=== PATIENT | female | born 1975 | race Caucasian/White ===

== ENCOUNTER → 2016-07-30 | Outpatient (CLI) | payer OTHER ==
--- NOTE | 2016-07-30 15:16 | CR ---
EXAMINATION: Bilateral feet HISTORY: Pain COMPARISON: None TECHNIQUE: 2 views bilaterally FINDINGS: There is no acute osseous abnormality, dislocation, or fracture. Bone mineralization and j oint spaces appear normal. Mild subchondral cystic change noted at the first MTP joint of the left f oot. No significant soft tissue swelling. IMPRESSION: Mild degenerative changes without acute findings.
== END ==
LOC: MW.CHPOD 09:13
PROVIDERS: ATTEND Podiatrist Foot & Ankle Surgery
DX: M79.671 Pain in right foot (principal); G89.29 Other chronic pain
CPT/HCPCS: 736202650; 73620-50

== ENCOUNTER 2016-09-08 08:46 | Emergency (ER) | payer OTHER ==
--- NOTE | 2016-09-08 09:00 | EDM.PDOC ---
ED HPI GENERAL MEDICAL PROBLEM - General Chief Complaint: Neck Problem Stated Complaint: NECK PAIN Time Seen by Provider: 09/08/16 09:00 Source of Information: Reports: Patient - History of Present Illness INITIAL COMMENTS - FREE TEXT/NARRATIVE: HISTORY AND PHYSICAL: History of present illness: [] Patient presents with neck pain/trapezius distribution pain bilateral since Friday she rates 8/10 nonradiating denies any trauma or precipitating event She relates to stress of her daughter graduating high school, she is had multiple chiropractic adjustments over the last week she has been using ibuprofen intermittently along with her chronic medications without benefit No fever nausea vomiting diarrhea constipation chest pain shortness breath headache dizziness or palpitation no bowel or urine symptoms no radiculopathy Review of systems: As per history of present illness and below otherwise all systems reviewed and negative. Past medical history: As per history of present illness and as reviewed below otherwise noncontributory. Surgical history: As per history of present illness and as reviewed below otherwise noncontributory. Social history: No reported history of drug or alcohol abuse. Family history: As per history of present illness and as reviewed below otherwise noncontributory. Physical exam: HEENT: Atraumatic, normocephalic, pupils reactive, negative for conjunctival pallor or scleral icterus, mucous membranes moist, throat clear, neck supple, nontender, trachea midline. Lungs: Clear to auscultation, breath sounds equal bilaterally, chest nontender. Heart: S1S2, regular, negative for clicks, rubs, or JVD. Abdomen: Soft, nondistended, nontender. Negative for masses or hepatosplenomegaly. Negative for costovertebral tenderness. Pelvis: Stable nontender. Genitourinary: Deferred. Rectal: Deferred. Extremities: Atraumatic, negative for cords or calf pain. Neurovascular unremarkable. Neuro: Awake, alert, oriented. Cranial nerves II through XII unremarkable. Cerebellum unremarkable. Motor and sensory unremarkable throughout. Exam nonfocal. Diagnostics: [] Cervical spine 3 views Therapeutics: [] Flexeril 10 mg by mouth 3 times a day when necessary #30 no refill Impression: [] Paraspinous muscle spasm cervical Definitive disposition and diagnosis as appropriate pending reevaluation and review of above. Neck Pain Score (Numeric/FACES): 10 - Related Data Allergies Allergy/AdvReac Type Severity Reaction Status Date / Time codeine Allergy Itching Verified 09/08/16 08:53 fluoxetine Allergy Confusion Verified 09/08/16 08:53 meperidine HCl [From Demerol] Allergy Swelling Verified 09/08/16 08:53 Flu Mist Allergy Swelling Uncoded 01/19/15 15:48 Home Meds: Home Meds ALPRAZolam [ALPRAZolam ER] 0.5 mg PO DAILY PRN 09/29/13 [History] Clobetasol [Clobetasol Propionate 0.05%] 15 gm TOP DAILY PRN 09/29/13 [History] ClonazePAM [KlonoPIN] 0.5 tab PO BEDTIME 09/29/13 [History] Hydrocodone/Acetaminophen [[place] 5-325] 1 tab PO DAILY PRN 09/29/13 [History] Levothyroxine 100 mcg PO ACBRK 09/29/13 [History] Insulin Aspart [NovoLOG] 20 - 25 unit IMPLANT ASDIRECTED 01/19/15 [History] Pramipexole [Mirapex] 1 tab PO BEDTIME 01/19/15 [History] DULoxetine [Cymbalta] 60 mg PO DAILY 09/08/16 [History] Lisinopril/Hydrochlorothiazide [Lisinopril-Hctz 20-12.5 mg Tab] 1 tab PO DAILY 09/08/16 [History] Past Medical History Cardiovascular History: Reports: Hypertension Other Respiratory History: Former smoker QUIT '2009 [employer] History: Reports: Psychiatric History: Reports: Anxiety, Depression Endocrine/Metabolic History: Reports: Diabetes, Type I, Hypothyroidism Other Endocrine/Metabolic History: Hypothyroidism - Infectious Disease History Infectious Disease History: Reports: Chicken Pox - Past Surgical History Other HEENT Surgeries/Procedures: [place] teeth extracted GI Surgical History: Reports: Colonoscopy Female Surgical History: Reports: Hysterectomy Other Female Surgeries/Procedures: Laparoscopy, Hysteroscopy, Essure Procedure Social & Family History - Family History Family Medical History: Noncontributory - Tobacco Use Smoking Status *Q: Never Smoker Years of Tobacco use: 15 Used Tobacco, but Quit: Yes - Caffeine Use Caffeine Use: Reports: None - Alcohol Use Days Per Week of Alcohol Use: 0 - Recreational Drug Use Recreational Drug Use: No Drug Use in Last 12 Months: No ED ROS GENERAL - Review of Systems Review Of Systems: ROS reveals no pertinent complaints other than HPI. ED EXAM, GENERAL - Physical Exam Exam: See Below Course - Vital Signs Last Recorded V/S: Last Vital Signs Temp 36.3 C 09/08/16 08:49 Pulse 104 H 09/08/16 08:49 Resp 18 09/08/16 08:49 BP 127/79 09/08/16 08:49 Pulse Ox 95 09/08/16 08:49 - Orders/Labs/Meds Orders: Active Orders 24 hr Category Date Time Status Cervical Spine 2V or 3V [CR] Stat Exams 09/08/16 09:08 Taken Departure - Departure Time of Disposition: 09:45 Disposition: Home, Self-Care 01 Condition: good Clinical Impression: Cervical paraspinous muscle spasm - Discharge Information Forms: ED Department Discharge - My Orders Last 24 Hours: My Active Orders 09/08/16 09:08 Cervical Spine 2V or 3V [CR] Stat - Assessment/Plan Last 24 Hours: My Active Orders 09/08/16 09:08 Cervical Spine 2V or 3V [CR] Stat
[2016-09-08 18:38] VITALS: BP 103/67
--- NOTE | 2016-09-09 15:17 | CR ---
EXAM DATE: 09/08/16 PATIENT'S AGE: 41 Patient: RGACIELA JOHNSON Facility: [place], [place] Site . Site : 1975 Study: XRay Spine Cervical [id number] 9:38:58 AM Ordering Physician: Isabel Mercado Final Report: INDICATION: Neck pain; no recent trauma. Comparison: None. Technique: Four view study cervical spine. Findings: No evidence of fracture or dislocation. No bone or soft tissue abnormalities. C1 -C2 articulation is unremarkable. Impression: Negative radiographic examination of the cervical spine. Dictated by Manuel Terry MD @ Sep 08 2016 9:41AM (Electronic Signature) Report Signed by Proxy. BRANDON
== END 2016-09-08 10:05 | disposition home or self-care (01) ==
LOC: MW.ED 08:46
DX: M62.838 Other muscle spasm (principal); I10 Essential (primary) hypertension; F41.9 Anxiety disorder, unspecified; F32.9 Major depressive disorder, single episode, unspecified; E10.9 Type 1 diabetes mellitus without complications; E03.9 Hypothyroidism, unspecified; Z88.1 Allergy status to other antibiotic agents; Z88.8 Allergy status to other drugs, medicaments and biological substances; Z79.899 Other long term (current) drug therapy; Z90.710 Acquired absence of both cervix and uterus; Z88.5 Allergy status to narcotic agent; Z87.891 Personal history of nicotine dependence
CPT/HCPCS: 72040; 72040-26; 99283

== ENCOUNTER → 2016-09-10 | Outpatient (CLI) | payer OTHER ==
[2016-09-10 16:02] LABS: CHLORIDE,CL 99 mmol/L (98-110); SODIUM,NA 133 mmol/L (136-146)
== END ==
LOC: MW.CHFP 15:05
PROVIDERS: ATTEND Emergency Medicine
DX: E10.9 Type 1 diabetes mellitus without complications (principal); E03.9 Hypothyroidism, unspecified
CPT/HCPCS: 36415; 80048; 83036; 84443

== ENCOUNTER 2018-05-26 12:43 | Day surgery (SDC) | payer OTHER ==
[~2018-05-26 12:43] MED LIST: Lactated Ringers 1,000 ML IV SCH; Sodium Chloride 0.9% 10 ML Syringe FLUSH PRN; Sodium Chloride 0.9% 2.5 ML Syringe FLUSH PRN
--- NOTE | 2018-05-26 13:38 | PCM.PREANE ---
Preanesthetic Assessment - Anesthesia/Transfusion/Family Hx Anesthesia History: Prior Anesthesia Without Reaction Other Type of Anesthesia Reaction Comment: Denies any known problem in past, no known family hx: problems Family History of Anesthesia Reaction: No Transfusion History: No Prior Transfusion(s) Intubation History: Unknown - Review of Systems General: No Symptoms Pulmonary: No Symptoms Cardiovascular: No Symptoms Gastrointestinal: Abdominal Pain Neurological: No Symptoms Other: Reports: None - Physical Assessment NPO Status Date: 05/26/18 NPO Status Time: 10:00 O2 Sat by Pulse Oximetry: 96 Respiratory Rate: 18 Vital Signs: Last Vital Signs Temp 36.4 C 05/26/18 12:49 Pulse 71 05/26/18 12:49 Resp 18 05/26/18 12:49 BP 140/85 05/26/18 12:49 Pulse Ox 96 05/26/18 12:49 Height: 1.63 m Weight: 72.575 kg ASA Class: 3 Mental Status: Alert & Oriented x3 Airway Class: Mallampati = 2 Dentition: Reports: Normal Dentition Thyro-Mental Finger Breadths: 3 Mouth Opening Finger Breadths: 3 ROM/Head Extension: Full Lungs: Clear to Auscultation, Normal Respiratory Effort Cardiovascular: Regular Rate, Regular Rhythm - Allergies Allergies/Adverse Reactions: Allergies Allergy/AdvReac Type Severity Reaction Status Date / Time codeine Allergy Itching Verified 05/21/18 09:46 fluoxetine Allergy Confusion Verified 05/21/18 09:46 meperidine HCl [From Demerol] Allergy Hives/reddn Verified 05/21/18 10:17 ess/swellin g Flu Mist Allergy Swelling Uncoded 05/21/18 09:46 - Blood Blood Available: No - Anesthesia Plan Pre-Op Medication Ordered: None - Acknowledgements Anesthesia Type Planned: MAC Pt an Appropriate Candidate for the Planned Anesthesia: Yes Alternatives and Risks of Anesthesia Discussed w Pt/Guardian: Yes Pt/Guardian Understands and Agrees with Anesthesia Plan: Yes PreAnesthesia Questionnaire HEENT History: Reports: Other (See Below) Other HEENT History: wears glasses Cardiovascular History: Reports: Hypertension Respiratory History: Reports: None Gastrointestinal History: Reports: Chronic Constipation, Colon Polyp, GERD, Hemorrhoids, Helicobacter Pylori, Irritable Bowel Syndrome, Other (See Below) ( chronic gastritis) Genitourinary History: Reports: None [employer] History: Reports: Musculoskeletal History: Reports: Arthritis, Back Pain, Chronic, Fibromyalgia Neurological History: Reports: Headaches, Chronic, Other (See Below) Other Neuro History: hx of motion sickness, has Restless Leg Syndrome Psychiatric History: Reports: Anxiety, Depression Endocrine/Metabolic History: Reports: Diabetes, Type I, Hypothyroidism Other Endocrine/Metabolic History: has insulin pump Hematologic History: Reports: None Immunologic History: Reports: None Oncologic (Cancer) History: Reports: None Dermatologic History: Reports: Psoriasis - Infectious Disease History Infectious Disease History: Reports: Chicken Pox - Past Surgical History Head Surgeries/Procedures: Reports: None HEENT Surgical History: Reports: Adenoidectomy, Oral Surgery, Tonsillectomy Other HEENT Surgeries/Procedures: [place] teeth extracted GI Surgical History: Reports: Colonoscopy, EGD Female Surgical History: Reports: Section, Hysterectomy, Tubal Ligation Other Female Surgeries/Procedures: Laparoscopy, Hysteroscopy, Essure Procedure Neurological Surgical History: Reports: C-Spine Other Neurological Surgeries/Procedures: cervical fusion - SUBSTANCE USE Smoking Status *Q: Former Smoker Recreational Drug Use History: No - HOME MEDS Home Medications: Home Meds ALPRAZolam [ALPRAZolam ER] 0.5 - 1 mg PO DAILY PRN 09/29/13 [History] Clobetasol [Clobetasol Propionate 0.05%] 15 gm TOP BID PRN 09/29/13 [History] Levothyroxine 100 mcg PO ASDIRECTED 09/29/13 [History] Insulin Aspart [NovoLOG] 40 unit IMPLANT DAILY 01/19/15 [History] Pramipexole [Mirapex] 1 tab PO BEDTIME 01/19/15 [History] Lisinopril 20 mg PO DAILY 03/10/18 [History] ClonazePAM [KlonoPIN] 0.5 - 1 tab PO BEDTIME PRN 05/21/18 [History] Furosemide [Lasix] 20 mg PO DAILY 05/21/18 [History] Hydrocodone/Acetaminophen [Hydrocodon-Acetaminophen 5-325] 1 tab PO ASDIRECTED PRN 05/21/18 [History] Omeprazole Magnesium [Prilosec Otc] 20 mg PO DAILY 05/21/18 [History] - CURRENT (IN HOUSE) MEDS Current Meds: Current Medications Lactated Ringer's (Ringers, Lactated) 1,000 mls @ 125 mls/hr IV ASDIRECTED LESLIE Sodium Chloride (Saline Flush) 10 ml FLUSH ASDIRECTED PRN PRN Reason: Keep Vein Open Sodium Chloride (Saline Flush) 2.5 ml FLUSH ASDIRECTED PRN PRN Reason: Keep Vein Open
[2018-05-26] MEDS ORDERED: fentaNYL 100 MCG/2 ML SDV ONE (14:25)
[2018-05-26] MEDS ORDERED: Lidocaine 2% 5 ML SDV ONE (14:25)
[2018-05-26] MEDS ORDERED: Propofol 200 MG/20 ML SDV ONE (14:25)
--- NOTE | 2018-05-26 15:15 | PCM.OPNOTE ---
- General Post-Op/Procedure Note Date of Surgery/Procedure: 05/26/18 Operative Procedure(s): EGD with biopsy Findings: Normal EGD Pre Op Diagnosis: History of H pylori infection and chronic gastritis Post-Op Diagnosis: Normal appearing EGD Anesthesia Technique: CORTES Primary Surgeon: Jenny Mayo Condition: Good
[2018-05-26 15:42] VITALS: BP 122/84
--- NOTE | 2018-05-26 18:38 | OR ---
SURGEON: JOSY MEJIA MD DATE OF PROCEDURE: 05/26/2018 PREOPERATIVE DIAGNOSES: 1. Gastritis. 2. History of Helicobacter pylori infection. POSTOPERATIVE DIAGNOSIS: Normal esophagogastroduodenoscopy. PROCEDURE PERFORMED: Diagnostic EGD with biopsy. ANESTHESIA: MAC. INSTRUMENT USED: Olympus endoscope. EXTENT OF EXAM: To the second portion of duodenum. PREPARATION: Good. LIMITATIONS: None. INDICATION FOR EXAMINATION: The patient is a 43-year-old female who presents for followup EGD. Her previous EGD showed chronic gastritis with a foci of focal intestinal metaplasia as well as an H. pylori infection. She has completed treatment and is feeling better. A decision was made to proceed with a repeat endoscopy to ensure eradication of the H. pylori infection and determine whether her gastritis had improved. I explained the procedure, expected perioperative course, and risks including bleeding, infection, damage to surrounding structures including perforation. The patient verbalized understanding and wishes to proceed. PROCEDURE IN DETAIL: The patient was brought to the endoscopy suite and placed in a beach chair position. A time-out was completed verifying the patient's name, age, date of , allergies, and procedure to be performed. A bite block was placed in the patient's mouth. Monitored anesthesia care was induced and continuous oxygen was provided via nasal cannula throughout the procedure. After adequate sedation was achieved, a well-lubricated endoscope was placed in the patient's mouth and advanced under direct visualization to the second portion of duodenum. This appeared normal and a photograph was taken. The scope was then fully withdrawn while examining the color, texture, anatomy, and integrity of the mucosa of the upper GI tract. The duodenum appeared normal. The scope was brought in the stomach and a photograph taken of the GE junction as well as the pylorus. Both appeared anatomically normal. The gastric mucosa itself was free of lesions. There was no evidence of gross inflammation. Biopsies were taken of the gastric antrum, body, and of the fundus. The area of focal intestinal metaplasia was found in the fundus, so 3 biopsies were taken circumferentially in the fundus and placed in the same jar. The scope was then brought into the distal esophagus and a photograph taken of the Z-line. This appeared normal. There was no evidence of gross inflammation or ulceration of the distal esophageal mucosa. The remainder of the esophagus was free of pathology. The scope was removed and the procedure terminated. The patient tolerated procedure well and was taken to the PACU in stable condition. ENDOSCOPIC DIAGNOSIS: Grossly normal esophagogastroduodenoscopy. RECOMMENDATIONS: Follow up in clinic in 2 weeks. SHILOH JACKSON /[id number]
== END 2018-05-26 15:50 | disposition home or self-care (01) ==
LOC: MW.SDS 12:43
PROVIDERS: ATTEND Surgery
DX: K29.50 Unspecified chronic gastritis without bleeding (principal); B96.81 Helicobacter pylori [H. pylori] as the cause of diseases classified elsewhere; E10.9 Type 1 diabetes mellitus without complications; I10 Essential (primary) hypertension; K58.9 Irritable bowel syndrome, unspecified; E03.9 Hypothyroidism, unspecified; F41.9 Anxiety disorder, unspecified; Z87.891 Personal history of nicotine dependence; Z79.4 Long term (current) use of insulin; Z79.899 Other long term (current) drug therapy; Z79.890 Hormone replacement therapy; Z88.5 Allergy status to narcotic agent
CPT/HCPCS: 43239; J2001; J2704; J3010; J7120; 00731; 88305; 88312

== ENCOUNTER 2019-01-13 08:43 | Day surgery (SDC) | payer OTHER ==
[~2019-01-13 08:43] MED LIST changes: +Sodium Chloride 0.9% 10 ML SDV IV PRN
--- NOTE | 2019-01-13 09:09 | PCM.PREANE ---
Preanesthetic Assessment - Anesthesia/Transfusion/Family Hx Anesthesia History: Prior Anesthesia Without Reaction Other Type of Anesthesia Reaction Comment: Denies any known problem in past, no known family hx: problems Family History of Anesthesia Reaction: No Transfusion History: No Prior Transfusion(s) Intubation History: Unknown - Review of Systems General: No Symptoms Pulmonary: No Symptoms Cardiovascular: No Symptoms Gastrointestinal: Other (heartburns,bloating, change in bowel habits) Neurological: No Symptoms Other: Reports: None - Physical Assessment Height: 5 ft 4 in Weight: 73.028 kg ASA Class: 3 Mental Status: Alert & Oriented x3 Airway Class: Mallampati = 2 Dentition: Reports: Normal Dentition Thyro-Mental Finger Breadths: 3 Mouth Opening Finger Breadths: 3 ROM/Head Extension: Full Lungs: Clear to Auscultation, Normal Respiratory Effort Cardiovascular: Regular Rate, Regular Rhythm - Allergies Allergies/Adverse Reactions: Allergies Allergy/AdvReac Type Severity Reaction Status Date / Time codeine Allergy Itching Verified 12/31/18 12:19 fluoxetine Allergy Confusion Verified 12/31/18 12:19 meperidine HCl [From Demerol] Allergy Hives/reddn Verified 12/31/18 12:19 ess/swellin g Flu Mist Allergy Swelling Uncoded 12/31/18 12:19 - Blood Blood Available: No - Anesthesia Plan Pre-Op Medication Ordered: None - Acknowledgements Anesthesia Type Planned: MAC Pt an Appropriate Candidate for the Planned Anesthesia: Yes Alternatives and Risks of Anesthesia Discussed w Pt/Guardian: Yes Pt/Guardian Understands and Agrees with Anesthesia Plan: Yes PreAnesthesia Questionnaire HEENT History: Reports: Other (See Below) Other HEENT History: wears glasses Cardiovascular History: Reports: Hypertension Respiratory History: Reports: None Other Respiratory History: Former smoker QUIT '2009 Gastrointestinal History: Reports: Chronic Constipation, Colon Polyp, GERD, Hemorrhoids, Helicobacter Pylori, Irritable Bowel Syndrome, Other (See Below) Other Gastrointestinal History: hx of C-Diff earlier this year Genitourinary History: Reports: None [employer] History: Reports: Musculoskeletal History: Reports: Arthritis, Back Pain, Chronic, Fibromyalgia, Neck Pain, Chronic Neurological History: Reports: Concussion, Headaches, Chronic, Migraines, Other (See Below) Other Neuro History: hx of motion sickness, has Restless Leg Syndrome Psychiatric History: Reports: Anxiety, Depression Endocrine/Metabolic History: Reports: Diabetes, Type I, Hypothyroidism, IDDM Other Endocrine/Metabolic History: Hypothyroidism Hematologic History: Reports: None Immunologic History: Reports: None Oncologic (Cancer) History: Reports: None Dermatologic History: Reports: Psoriasis - Infectious Disease History Infectious Disease History: Reports: Chicken Pox - Past Surgical History Head Surgeries/Procedures: Reports: None HEENT Surgical History: Reports: Adenoidectomy, Tonsillectomy Other HEENT Surgeries/Procedures: [place] teeth extracted GI Surgical History: Reports: Colonoscopy, EGD Female Surgical History: Reports: Section, Hysterectomy, Tubal Ligation Other Female Surgeries/Procedures: Laparoscopy, Hysteroscopy, Essure Procedure Neurological Surgical History: Reports: C-Spine, Spinal Fusion Other Neurological Surgeries/Procedures: cervical fusion, C5-6 - SUBSTANCE USE Smoking Status *Q: Former Smoker Tobacco Use Within Last Twelve Months: No Recreational Drug Use History: No - HOME MEDS Home Medications: Home Meds ALPRAZolam [ALPRAZolam ER] 0.5 - 1 mg PO DAILY PRN 09/29/13 [History] Clobetasol [Clobetasol Propionate 0.05%] 15 gm TOP BID PRN 09/29/13 [History] Levothyroxine 100 mcg PO QAM 09/29/13 [History] Insulin Aspart [NovoLOG] 40 unit IMPLANT DAILY 01/19/15 [History] Lisinopril 20 mg PO BEDTIME 03/10/18 [History] ClonazePAM [KlonoPIN] 0.5 - 1 tab PO BEDTIME PRN 05/21/18 [History] Hydrocodone/Acetaminophen [Hydrocodon-Acetaminophen 5-325] 1 tab PO ASDIRECTED PRN 05/21/18 [History] amLODIPine [Norvasc] 10 mg PO DAILY 12/31/18 [History] - CURRENT (IN HOUSE) MEDS Current Meds: Current Medications Lactated Ringer's (Ringers, Lactated) 1,000 mls @ 125 mls/hr IV ASDIRECTED LESLIE Sodium Chloride (Saline Flush) 10 ml FLUSH ASDIRECTED PRN PRN Reason: Keep Vein Open Sodium Chloride (Saline Flush) 2.5 ml FLUSH ASDIRECTED PRN PRN Reason: Keep Vein Open Sodium Chloride (Saline Flush) 10 ml FLUSH ASDIRECTED PRN PRN Reason: Keep Vein Open Sodium Chloride (Saline Flush) 2.5 ml FLUSH ASDIRECTED PRN PRN Reason: Keep Vein Open Sodium Chloride (Normal Saline) 10 ml IV ASDIRECTED PRN PRN Reason: IV Use
[2019-01-13] MEDS ORDERED: Propofol 200 MG/20 ML SDV ONE (09:34)
[2019-01-13] MEDS ORDERED: Lidocaine 2% 5 ML SDV ONE (09:34)
--- NOTE | 2019-01-13 10:29 | PCM.POSTAN ---
POST ANESTHESIA ASSESSMENT - MENTAL STATUS Mental Status: Alert, Oriented - VITAL SIGNS Vital Signs: Last Vital Signs Temp 36.5 C 01/13/19 08:50 Pulse 77 01/13/19 10:25 Resp 15 01/13/19 10:25 BP 121/87 01/13/19 10:25 Pulse Ox 98 01/13/19 10:25 - RESPIRATORY Respiratory Status: Respiratory Rate WNL, Airway Patent, O2 Saturation Stable - CARDIOVASCULAR CV Status: Pulse Rate WNL, Blood Pressure Stable - GASTROINTESTINAL GI Status: No Symptoms - PAIN Pain Score: 0 - POST OP HYDRATION Hydration Status: Adequate & Stable - OBSERVATIONS Free Text/Narrative:: no anesthesia problems
--- NOTE | 2019-01-13 10:58 | PCM48HPAN ---
Post Anesthesia Note - EVALUATION WITHIN 48HRS OF ANESTHETIC Vital Signs in Normal Range: Yes Patient Participated in Evaluation: Yes Respiratory Function Stable: Yes Airway Patent: Yes Cardiovascular Function Stable: Yes Hydration Status Stable: Yes Pain Control Satisfactory: Yes Nausea and Vomiting Control Satisfactory: Yes Mental Status Recovered: Yes Vital Signs: Last Vital Signs Temp 36.5 C 01/13/19 08:50 Pulse 77 01/13/19 10:25 Resp 15 01/13/19 10:25 BP 121/87 01/13/19 10:25 Pulse Ox 98 01/13/19 10:25 - COMMENTS/OBSERVATIONS Free Text/Narrative:: no anesthesia problems
[2019-01-13 11:49] VITALS: BP 142/90; PULSE 64
--- NOTE | 2019-01-13 15:02 | PCM.OPNOTE ---
- General Post-Op/Procedure Note Date of Surgery/Procedure: 01/13/19 Operative Procedure(s): Diagnostic EGD with biopsy Findings: Mild gastritis. No evidence of bleeding or ulcers Pre Op Diagnosis: History of H pylori infection Post-Op Diagnosis: Gastritis Anesthesia Technique: MAC Primary Surgeon: Jenny Mayo Condition: Good Free Text/Narrative:: Intake & Output 01/13/19 01/13/19 01/13/19 06:59 14:59 22:59 Intake Total 600 Balance 600
--- NOTE | 2019-01-14 17:46 | OR ---
SURGEON: JENNY MAYO MD DATE OF PROCEDURE: 01/13/2019 PREOPERATIVE DIAGNOSIS: History of H. pylori and gastritis. POSTOPERATIVE DIAGNOSIS: Gastritis. PROCEDURE PERFORMED: Diagnostic esophagogastroduodenoscopy with biopsy. PRIMARY SURGEON: Jenny Mayo MD. ANESTHESIA: MAC. INSTRUMENT USED: Olympus endoscope. EXTENT OF EXAM: To the second portion of duodenum. PREPARATION: Good. LIMITATIONS: None. INDICATION FOR EXAMINATION: The patient is a 43-year-old female who presents for a repeat diagnostic EGD. She was found to have H. pylori 6 months ago and was treated for this, but on repeat EGD was found to have recurrent H. pylori disease and chronic gastritis with intestinal epithelial metaplasia. She was treated again for H. pylori and tested negative then for the bacteria. She was given 6 months and it is now time for repeat scope. I explained the procedure, expected perioperative course, and risks including bleeding, infection, or damage to surrounding structures including perforation. The patient verbalized understanding and wishes to proceed. PROCEDURE IN DETAIL: The patient was brought to the endoscopy suite and placed in a beach chair position. A time-out was completed verifying the patient's name, age, date of , allergies, and procedure to be performed. Monitored anesthesia care was induced and a bite block was placed in the patient's mouth. Continuous oxygen was provided via nasal cannula throughout the procedure. After adequate sedation was achieved, a well-lubricated endoscope was placed in the patient's mouth and advanced under direct visualization to the second portion of duodenum. This appeared normal and a photograph was taken. Scope was then straightened out and fully withdrawn while examining the color, texture, anatomy, and integrity of mucosa of the upper GI tract. The duodenum appeared normal. A biopsy was taken in the duodenal bulb and sent to Pathology labeled as duodenum. The scope was then brought into the stomach and a photograph taken of the pylorus and GE junction. Both appeared anatomically normal. There was no gross ulceration or inflammation, but the gastric mucosa appeared slightly pale. Multiple biopsies were taken throughout the antrum, the body, and fundus and sent to pathology for H. pylori testing and histologic review. The scope was then brought into the distal esophagus and a photograph taken of the Z-line. This appeared normal. The remainder of the esophageal mucosa appeared normal. The scope was removed and the procedure terminated. The patient tolerated procedure well and taken to PACU in stable condition. ENDOSCOPIC DIAGNOSIS: Gastritis. RECOMMENDATIONS: Follow up in clinic in 2 weeks. SHILOH JACKSON /[id number]
== END 2019-01-13 11:10 | disposition home or self-care (01) ==
LOC: MW.SDS 08:43
PROVIDERS: ATTEND Surgery
DX: K29.70 Gastritis, unspecified, without bleeding (principal); K29.50 Unspecified chronic gastritis without bleeding; K21.9 Gastro-esophageal reflux disease without esophagitis; E10.9 Type 1 diabetes mellitus without complications; E03.9 Hypothyroidism, unspecified; I10 Essential (primary) hypertension; G43.909 Migraine, unspecified, not intractable, without status migrainosus; F41.9 Anxiety disorder, unspecified; Z87.891 Personal history of nicotine dependence; Z86.19 Personal history of other infectious and parasitic diseases; Z88.8 Allergy status to other drugs, medicaments and biological substances; Z88.5 Allergy status to narcotic agent; Z88.7 Allergy status to serum and vaccine; Z79.899 Other long term (current) drug therapy; Z79.891 Long term (current) use of opiate analgesic; Z79.4 Long term (current) use of insulin
CPT/HCPCS: 43239; 88305; 88312; J2001; J2704; J7120; 00731

== ENCOUNTER 2019-01-25 08:12 | Emergency (ER) | payer OTHER ==
--- NOTE | 2019-01-25 08:24 | EDM.PDOC ---
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 She stated that she was treated in May 2018 for H. pylori infection with antibiotics and has been having yeast infections "to keep coming back". She has seen a couple providers in the past for this and has been prescribed metronidazole and fluconazole. Currently using Monistat [id number] intravaginal suppositories however she states that it is "not helping and abbasi me". She states that she keeps getting yeast infections vaginally at least every month and reports that this is "the third time I had a yeast infection in the mouth and esophagus". She reports her symptoms as vaginal burning, itching, irritation, and raw. She denies, cottage- cheese like discharge vaginally. She states that for her throat it is "hard to swallow, not like sore throat, but abbasi when eating or drinking like a bunch of pepper is in my mouth". Patient denies any fever, chills, headache, change in vision, syncope or near syncope. Denies any chest pain, back pain, shortness of breath or cough. Denies any abdominal pain, nausea, vomiting, diarrhea, constipation or dysuria. Has not noted any blood in urine or stool. Patient has been eating and drinking appropriately. Review of systems: As per history of present illness and below otherwise all systems reviewed and negative. Past medical history: As per history of present illness and as reviewed below otherwise noncontributory. Surgical history: As per history of present illness and as reviewed below otherwise noncontributory. Social history: See social history for further information Family history: As per history of present illness and as reviewed below otherwise noncontributory. Physical exam: General: She is a well-nourished and well-developed 43-year-old female. Alert and orientated. Nontoxic in appearance and in no acute distress. No signs have been reviewed by me. HEENT: Atraumatic, normocephalic, pupils equal and reactive bilaterally, negative for conjunctival pallor or scleral icterus, mucous membranes moist, TMs normal bilaterally, posterior oropharynx dry, neck supple, nontender, trachea midline, slight white coating on tongue. No drooling or trismus noted. No meningeal signs. No hot potato voice noted. Lungs: Clear to auscultation, breath sounds equal bilaterally, chest nontender. Heart: S1S2, regular rate and rhythm without overt murmur Abdomen: Soft, nondistended, nontender. Negative for masses or hepatosplenomegaly. Negative for costovertebral tenderness. Pelvis: Stable nontender. Genitourinary: Deferred. Rectal: Deferred. Skin: Intact, warm, dry. No lesions or rashes noted. Extremities: Atraumatic, moves all extremities per self without difficulty or deficits, negative for cords or calf pain. Neurovascular unremarkable. Neuro: Awake, alert, oriented. Cranial nerves II through XII unremarkable. Cerebellum unremarkable. Motor and sensory unremarkable throughout. Exam nonfocal. Notes: Patient declines the desire for further diagnostics. 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 Patient is a type II diabetic but states her sugars have been well managed. Supportive care measures were reviewed and discussed. Voices understanding and is agreeable to plan of care. Denies any further questions or concerns at this time. Diagnostics: None Therapeutics: None Prescription: Diflucan (with 1 refill) Impression: Candidiasis Plan: 1. Take the medications as prescribed. 2. Follow-up with your INTERNET SITE DESIGNER as we discussed. 3. Return to the ED as needed and as discussed. Definitive disposition and diagnosis as appropriate pending reevaluation and review of above. pelvic Pain Score (Numeric/FACES): 4 - Related Data Allergies Allergy/AdvReac Type Severity Reaction Status Date / Time codeine Allergy Itching Verified 01/25/19 08:30 fluoxetine Allergy Confusion Verified 01/25/19 08:30 meperidine HCl [From Demerol] Allergy Hives/reddn Verified 01/25/19 08:30 ess/swellin g Flu Mist Allergy Swelling Uncoded 12/31/18 12:19 Home Meds: Home Meds ALPRAZolam [ALPRAZolam ER] 0.5 - 1 mg PO DAILY PRN 09/29/13 [History] Clobetasol [Clobetasol Propionate 0.05%] 15 gm TOP BID PRN 09/29/13 [History] Levothyroxine 100 mcg PO QAM 09/29/13 [History] Insulin Aspart [NovoLOG] 40 unit IMPLANT DAILY 01/19/15 [History] Lisinopril 20 mg PO BEDTIME 03/10/18 [History] Hydrocodone/Acetaminophen [Hydrocodon-Acetaminophen 5-325] 1 tab PO ASDIRECTED PRN 05/21/18 [History] amLODIPine [Norvasc] 10 mg PO DAILY 12/31/18 [History] Furosemide 1 tab PO ASDIRECTED 01/25/19 [History] Pramipexole [Mirapex] 1 tab PO DAILY 01/25/19 [History] Past Medical History HEENT History: Reports: Other (See Below) Other HEENT History: wears glasses Cardiovascular History: Reports: Hypertension Respiratory History: Reports: None Other Respiratory History: Former smoker QUIT Gastrointestinal History: Reports: Chronic Constipation, Colon Polyp, GERD, Hemorrhoids, Helicobacter Pylori, Irritable Bowel Syndrome, Other (See Below) Other Gastrointestinal History: hx of C-Diff earlier this year Genitourinary History: Reports: None 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: Musculoskeletal History: Reports: Arthritis, Back Pain, Chronic, Fibromyalgia, Neck Pain, Chronic Neurological History: Reports: Concussion, Headaches, Chronic, Migraines, Other (See Below) Other Neuro History: hx of motion sickness, has Restless Leg Syndrome Psychiatric History: Reports: Anxiety, Depression Endocrine/Metabolic History: Reports: Diabetes, Type I, Hypothyroidism, IDDM Other Endocrine/Metabolic History: Hypothyroidism Hematologic History: Reports: None Immunologic History: Reports: None Oncologic (Cancer) History: Reports: None Dermatologic History: Reports: Psoriasis - Infectious Disease History Infectious Disease History: Reports: Chicken Pox - Past Surgical History Head Surgeries/Procedures: Reports: None HEENT Surgical History: Reports: Adenoidectomy, Tonsillectomy Other HEENT Surgeries/Procedures: [place] teeth extracted GI Surgical History: Reports: Colonoscopy, EGD Female Surgical History: Reports: Section, Hysterectomy, Tubal Ligation Other Female Surgeries/Procedures: Laparoscopy, Hysteroscopy, Essure Procedure Neurological Surgical History: Reports: C-Spine, Spinal Fusion Other Neurological Surgeries/Procedures: cervical fusion, C5-6 Social & Family History - Family History Family Medical History: Noncontributory - Caffeine Use Caffeine Use: Reports: None ED ROS GENERAL - Review of Systems Review Of Systems: ROS reveals no pertinent complaints other than HPI. ED EXAM, RENAL/ - Physical Exam Exam: See Below (See dictation) Course - Vital Signs Last Recorded V/S: Last Vital Signs Temp 97.2 F 01/25/19 08:32 Pulse 80 01/25/19 08:32 Resp 18 01/25/19 08:32 BP 143/91 H 01/25/19 08:32 Pulse Ox 97 01/25/19 08:32 Departure - Departure Time of Disposition: 08:45 Disposition: Home, Self-Care 01 Clinical Impression: Candidiasis - Discharge Information Instructions: Vaginal Yeast Infection, Adult Referrals: PCP,Unknown [Primary Care Provider] - Forms: ED Department Discharge Additional Instructions: The following information is given to patients seen in the emergency department who are being discharged to home. This information is to outline your options for follow-up care. We provide all patients seen in our emergency department with a follow-up referral. The need for follow-up, as well as the timing and circumstances, are variable depending upon the specifics of your emergency department visit. If you don't have a primary care physician on staff, we will provide you with a referral. We always advise you to contact your personal physician following an emergency department visit to inform them of the circumstance of the visit and for follow-up with them and/or the need for any referrals to a consulting specialist. The emergency department will also refer you to a specialist when appropriate. This referral assures that you have the opportunity for follow-up care with a specialist. All of these measure are taken in an effort to provide you with optimal care, which includes your follow-up. Under all circumstances we always encourage you to contact your private physician who remains a resource for coordinating your care. When calling for follow-up care, please make the office aware that this follow-up is from your recent emergency room visit. If for any reason you are refused follow-up, please contact the [facility] Emergency Department at and asked to speak to the emergency department charge nurse. [facility] Primary Care [address] [place] [id number] [facility] [address] [place] [id number] 1. Take the medications as prescribed. 2. Follow-up with your INTERNET SITE DESIGNER as we discussed. 3. Return to the ED as needed and as discussed.
[2019-01-25 09:04] VITALS: BP 136/88; PULSE 68
== END 2019-01-25 09:00 | disposition home or self-care (01) ==
LOC: MW.ED 08:12
DX: B37.9 Candidiasis, unspecified (principal); E11.9 Type 2 diabetes mellitus without complications; I10 Essential (primary) hypertension; E03.9 Hypothyroidism, unspecified; F41.9 Anxiety disorder, unspecified; Z88.5 Allergy status to narcotic agent; Z88.8 Allergy status to other drugs, medicaments and biological substances; Z88.7 Allergy status to serum and vaccine; Z87.891 Personal history of nicotine dependence; Z79.899 Other long term (current) drug therapy; Z79.4 Long term (current) use of insulin; Z79.890 Hormone replacement therapy
CPT/HCPCS: 99284

== ENCOUNTER 2019-11-13 09:40 | Emergency (ER) | payer OTHER ==
[2019-11-13] MEDS ORDERED: Sodium Chloride 0.9% 2.5 ML Syringe FLUSH PRN (09:53)
[2019-11-13] MEDS ORDERED: Sodium Chloride 0.9% 10 ML Syringe FLUSH PRN (09:53)
--- NOTE | 2019-11-13 10:06 | EDM.PDOC ---
ED HPI GENERAL MEDICAL PROBLEM - General Chief Complaint: Chest Pain Stated Complaint: CHEST PAIN/HIGH BLOOD PRESSURE Time Seen by Provider: 11/13/19 09:50 Source of Information: Reports: Patient History Limitations: Reports: No Limitations - History of Present Illness INITIAL COMMENTS - FREE TEXT/NARRATIVE: 44-year-old female with history of DM 1, anxiety, fibromyalgia presents with midsternal sharp pleuritic chest pain that woke her up from sleep at 8:00 today. Pain is sharp, described as burning sensation, rated a 6/10, radiates into her upper back and neck and left arm. She took a clonazepam with no relief. Associated with shortness of breath. Denies fever, chills, cough. ROS: A 10-point review of systems, other than pertinent positives and negatives as stated per HPI, is otherwise negative Past medical history: No additional pertinent history Past Surgical history: No additional pertinent history Social history: No additional pertinent history Family history: No additional pertinent history PHYSICAL EXAM General: AOx4, GCS = 15, No distress HEENT: dry mucous membrane Neck: supple, no meningismus, no Kernig or Brudzinski Cardiac: S1S2 RRR Respiratory: CTAB, no crackles or rales, no wheezing Abdomen: Soft, nontender, no rebound or guarding, nondistended, no pulsatile mass. Back: nontender Musculoskeletal: NVI distally, no deformity Neuro: No focal deficits, CN 2 - 12 WNL. Chest Pain Score (Numeric/FACES): 8 - Related Data Allergies Allergy/AdvReac Type Severity Reaction Status Date / Time codeine Allergy Itching Verified 11/13/19 09:57 fluoxetine Allergy Confusion Verified 11/13/19 09:57 meperidine HCl [From Demerol] Allergy Hives/reddn Verified 11/13/19 09:57 ess/swellin g Flu Mist Allergy Swelling Uncoded 11/13/19 09:57 Home Meds: Home Meds ALPRAZolam [ALPRAZolam ER] 0.5 - 1 mg PO DAILY PRN 09/29/13 [History] Clobetasol [Clobetasol Propionate 0.05%] 15 gm TOP BID PRN 09/29/13 [History] Levothyroxine 100 mcg PO QAM 09/29/13 [History] Insulin Aspart [NovoLOG] 40 unit IMPLANT DAILY 01/19/15 [History] Lisinopril 10 mg PO BEDTIME 03/10/18 [History] Furosemide 1 tab PO ASDIRECTED 01/25/19 [History] Pramipexole [Mirapex] 1 tab PO DAILY 01/25/19 [History] Acetaminophen/HYDROcodone [[place] 325-5 MG] 1 tab PO ASDIRECTED 11/13/19 [History] Verapamil [Verapamil SR (24 Hr)] 120 mg PO DAILY 11/13/19 [History] amLODIPine Besylate [Amlodipine Besylate] 10 mg PO DAILY 11/13/19 [History] clonazePAM [Clonazepam] 0.5 mg PO DAILY 11/13/19 [History] Past Medical History HEENT History: Reports: Other (See Below) Other HEENT History: wears glasses Cardiovascular History: Reports: Hypertension Respiratory History: Reports: None Other Respiratory History: Former smoker QUIT Gastrointestinal History: Reports: Chronic Constipation, Colon Polyp, GERD, Hemorrhoids, Helicobacter Pylori, Irritable Bowel Syndrome, Other (See Below) Other Gastrointestinal History: hx of C-Diff earlier this year Genitourinary History: Reports: None Other Genitourinary History: history of yeast infections 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: Musculoskeletal History: Reports: Arthritis, Back Pain, Chronic, Fibromyalgia, Neck Pain, Chronic Neurological History: Reports: Concussion, Headaches, Chronic, Migraines, Other (See Below) Other Neuro History: hx of motion sickness, has Restless Leg Syndrome Psychiatric History: Reports: Anxiety, Depression Endocrine/Metabolic History: Reports: Diabetes, Type I, Hypothyroidism, IDDM Other Endocrine/Metabolic History: Hypothyroidism Hematologic History: Reports: None Immunologic History: Reports: None Oncologic (Cancer) History: Reports: None Dermatologic History: Reports: Psoriasis - Infectious Disease History Infectious Disease History: Reports: Chicken Pox - Past Surgical History Head Surgeries/Procedures: Reports: None HEENT Surgical History: Reports: Adenoidectomy, Tonsillectomy Other HEENT Surgeries/Procedures: [place] teeth extracted GI Surgical History: Reports: Colonoscopy, EGD Female Surgical History: Reports: Section, Hysterectomy, Tubal Ligation Other Female Surgeries/Procedures: Laparoscopy, Hysteroscopy, Essure Procedure Neurological Surgical History: Reports: C-Spine, Spinal Fusion Other Neurological Surgeries/Procedures: cervical fusion, C5-6 Social & Family History - Family History Family Medical History: Noncontributory - Caffeine Use Caffeine Use: Reports: None ED ROS GENERAL - Review of Systems Review Of Systems: Comprehensive ROS is negative, except as noted in HPI. ED EXAM, GENERAL - Physical Exam Exam: See Below EKG INTERPRETATION EKG Interpretation Comments: 103 Bpm, sinus tach, normal QRS interval, no STEMI. EKG and rhythm strip interpreted by me at 0949 Course - Vital Signs Last Recorded V/S: Last Vital Signs Temp 95.9 F L 11/13/19 09:55 Pulse 103 H 11/13/19 09:55 Resp 17 11/13/19 09:55 BP 105/64 11/13/19 09:55 Pulse Ox 97 11/13/19 09:55 - Orders/Labs/Meds Orders: Active Orders 24 hr Category Date Time Status Cardiac Monitoring [RC] . DIRECTED Care 11/13/19 09:53 Active EKG Documentation Completion [RC] STAT Care 11/13/19 09:53 Active TROPONIN I [CHEM] Stat Lab 11/13/19 12:18 Received Nitroglycerin [Nitrostat] Med 11/13/19 10:37 Active 0.4 mg SL Q5M PRN Sodium Chloride 0.9% [Saline Flush] Med 11/13/19 09:53 Active 10 ml FLUSH ASDIRECTED PRN Sodium Chloride 0.9% [Saline Flush] Med 11/13/19 09:53 Active 2.5 ml FLUSH ASDIRECTED PRN Saline Lock Insert [OM.PC] Stat Oth 11/13/19 09:53 Ordered Medication Orders Nitroglycerin (Nitrostat) 0.4 mg SL Q5M PRN PRN Reason: Chest Pain Sodium Chloride (Saline Flush) 2.5 ml FLUSH ASDIRECTED PRN PRN Reason: Keep Vein Open Sodium Chloride (Saline Flush) 10 ml FLUSH ASDIRECTED PRN PRN Reason: Keep Vein Open Labs: Laboratory Tests 11/13/19 11/13/19 Range/Units 09:55 09:55 WBC 10.69 (4.0-11.0) K/uL RBC 4.52 (4.30-5.90) M/uL Hgb 15.6 (12.0-16.0) g/dL Hct 45.3 (36.0-46.0) % MCV 100.2 H (80.0-98.0) fL MCH 34.5 H (27.0-32.0) pg MCHC 34.4 (31.0-37.0) g/dL RDW Std Deviation 45.6 (28.0-62.0) fl RDW Coeff of Juan 12 (11.0-15.0) % Plt Count 261 (150-400) K/uL MPV 10.20 (7.40-12.00) fL Neut % (Auto) 78.6 (48.0-80.0) % Lymph % (Auto) 16.4 (16.0-40.0) % [place] % (Auto) 4.1 (0.0-15.0) % Eos % (Auto) 0.6 (0.0-7.0) % Baso % (Auto) 0.3 (0.0-1.5) % Neut # (Auto) 8.4 H (1.4-5.7) K/uL Lymph # (Auto) 1.8 (0.6-2.4) K/uL [place] # (Auto) 0.4 (0.0-0.8) K/uL Eos # (Auto) 0.1 (0.0-0.7) K/uL Baso # (Auto) 0.0 (0.0-0.1) K/uL Nucleated RBC % 0.0 /100WBC Nucleated RBCs # 0 K/uL Sodium 136 (136-145) mmol/L Potassium 4.2 (3.5-5.1) mmol/L Chloride 96 L (98-107) mmol/L Carbon Dioxide 16.8 L (21.0-32.0) mmol/L BUN 13 (7.0-18.0) mg/dL Creatinine 1.1 H (0.6-1.0) mg/dL Est Cr Clr Drug Dosing 56.36 mL/min Estimated GFR (MDRD) 54.0 ml/min Glucose 321 H (74-106) mg/dL Calcium 8.6 (8.5-10.1) mg/dL Total Bilirubin 0.4 (0.2-1.0) mg/dL AST 137 H (15-37) IU/L ALT 68 H (14-63) IU/L Alkaline Phosphatase 146 H (46-116) U/L Troponin I < 0.050 (0.000-0.056) ng/mL Total Protein 7.6 (6.4-8.2) g/dL Albumin 4.1 (3.4-5.0) g/dL Globulin 3.5 (2.6-4.0) g/dL Albumin/Globulin Ratio 1.2 (0.9-1.6) Lipase 57 L (73-393) U/L Meds: Medications Generic Name Dose Route Start Last Admin Trade Name Freq PRN Reason Stop Dose Admin Nitroglycerin 0.4 mg 11/13/19 10:37 Nitrostat SL Q5M PRN Chest Pain Sodium Chloride 2.5 ml 11/13/19 09:53 Saline Flush FLUSH ASDIRECTED PRN Keep Vein Open Sodium Chloride 10 ml 11/13/19 09:53 Saline Flush FLUSH ASDIRECTED PRN Keep Vein Open Discontinued Medications Generic Name Dose Route Start Last Admin Trade Name Freq PRN Reason Stop Dose Admin Aspirin 324 mg 11/13/19 10:38 11/13/19 11:07 Aspirin PO 11/13/19 10:39 324 mg ONETIME ONE Administration Lactated Ringer's 1,000 mls @ 999 mls/hr 11/13/19 11:19 11/13/19 12:05 Ringers, Lactated IV 11/13/19 12:19 999 mls/hr .BOLUS ONE Administration Iopamidol 100 ml 11/13/19 11:37 11/13/19 11:37 Isovue-370 (76%) IVPUSH 11/13/19 11:38 100 ml ONETIME ONE Administration Morphine Sulfate 4 mg 11/13/19 11:19 11/13/19 12:05 Morphine IVPUSH 11/13/19 11:20 4 mg ONETIME ONE Administration Ondansetron HCl 4 mg 11/13/19 12:10 11/13/19 12:55 Zofran IVPUSH 11/13/19 12:11 4 mg ONETIME ONE Administration - Re-Assessments/Exams Free Text/Narrative Re-Assessment/Exam: 11/13/19 13:00 Upon reexamination, her chest pain after 4 mg IV morphine is resolved, currently rated at 0/10. 11/13/19 1450 After treatments and a prolonged observation in the ER, patient improved clinically and is currently stable for discharge. I performed a repeat exam and did not appreciate new abnormal findings. Patient exhibits normal vital signs and has a normal gait. I advised the patient to return to the ER for reevaluation if symptoms worsened, including recurring chest pain, or any other worrisome symptoms. I instructed the patient to follow up with their PCP within 2-3 days. MEDICAL DECISION MAKING: I reviewed the patients past medical records, lab and radiographic findings. I discussed the case with the patient. My differential diagnosis included:ACS, pneumonia, PE, pneumothorax, chest wall pain, pulmonary edema/CHF, aortic dissection, pericarditis, intra-abdominal process. Given the EKG and clinical history, I do not suspect pericarditis. There is no evidence of pneumothorax or infiltrate on CXR. Aortic dissection was considered, however the presenting symptoms were uncharacteristic of aortic dissection. Chest X-ray shows no evidence of mediastinal widening and there are strong, equal and symmetric pulses. Given the current presentation, I do not suspect aortic dissection. The patients history, chest X-ray, and exam do not suggest pulmonary edema/congestive heart failure. Pulmonary embolism was considered but felt unlikely due to the compendium of presenting elements leading to a low pre-test probability followed by a negative PERC rule. All 8 of the rule out PERC criteria were present including: Age<50, HR <100, O2 sat > 94%, no recent trauma/surgery, no hemoptysis, no exogenous hormone use, no clinical signs suggestive of DVT, no hx DVT/PE. Given the above, there is a <2% risk of PE and I feel that no further diagnostic testing is needed. Intra- abdominal pathology felt unlikely given benign/non tender abdominal exam. Acute coronary syndrome was considered but there are negative serial biomarkers, no acute ischemic EKG changes, and the patient has a low HEART score. Based on this, I feel that there is low risk for short-term major adverse cardiac event. I have discussed this with the patient and reviewed options for inpatient and outpatient management. The patient verbalizes an excellent understanding of the above including presence of small risk of short-term major adverse cardiac event even in the setting of low HEART score, negative cardiac biomarker, and compendium of elements of this presentation. The patient wishes to pursue further workup on as an outpatient. Departure - Departure Time of Disposition: 14:56 Disposition: Home, Self-Care 01 Condition: Good Clinical Impression: Transaminitis, Nonspecific chest pain - Discharge Information *PRESCRIPTION DRUG MONITORING PROGRAM REVIEWED*: Not Applicable *COPY OF PRESCRIPTION DRUG MONITORING REPORT IN PATIENT AKIRA: Not Applicable Instructions: Nonspecific Chest Pain, Adult Referrals: Augustine Hou MD [Primary Care Provider] - 3 Days Forms: ED Department Discharge Additional Instructions: The following information is given to patients seen in the emergency department who are being discharged to home. This information is to outline your options for follow-up care. We provide all patients seen in our emergency department with a follow-up referral. The need for follow-up, as well as the timing and circumstances, are variable depending upon the specifics of your emergency department visit. If you don't have a primary care physician on staff, we will provide you with a referral. We always advise you to contact your personal physician following an emergency department visit to inform them of the circumstance of the visit and for follow-up with them and/or the need for any referrals to a consulting specialist. The emergency department will also refer you to a specialist when appropriate. This referral assures that you have the opportunity for follow-up care with a specialist. All of these measure are taken in an effort to provide you with optimal care, which includes your follow-up. Under all circumstances we always encourage you to contact your private physician who remains a resource for coordinating your care. When calling for follow-up care, please make the office aware that this follow-up is from your recent emergency room visit. If for any reason you are refused follow-up, please contact the [facility] Emergency Department at and asked to speak to the emergency department charge nurse. If you do not have a primary care doctor, please follow up with the clinics below within 3-[address] [facility] - Primary Care [address] [place] [address] [facility] [address] [place] [address] Sepsis Event Note (ED) - Focused Exam Vital Signs: Vital Signs Temp Pulse Resp BP Pulse Ox 11/13/19 09:55 95.9 F L 103 H 17 105/64 97 - My Orders Last 24 Hours: My Active Orders 11/13/19 09:53 Cardiac Monitoring [RC] . DIRECTED EKG Documentation Completion [RC] STAT Sodium Chloride 0.9% [Saline Flush] 10 ml FLUSH ASDIRECTED PRN Sodium Chloride 0.9% [Saline Flush] 2.5 ml FLUSH ASDIRECTED PRN Saline Lock Insert [OM.PC] Stat 11/13/19 10:37 Nitroglycerin [Nitrostat] 0.4 mg SL Q5M PRN 11/13/19 12:18 TROPONIN I [CHEM] Stat - Assessment/Plan Last 24 Hours: My Active Orders 11/13/19 09:53 Cardiac Monitoring [RC] . DIRECTED EKG Documentation Completion [RC] STAT Sodium Chloride 0.9% [Saline Flush] 10 ml FLUSH ASDIRECTED PRN Sodium Chloride 0.9% [Saline Flush] 2.5 ml FLUSH ASDIRECTED PRN Saline Lock Insert [OM.PC] Stat 11/13/19 10:37 Nitroglycerin [Nitrostat] 0.4 mg SL Q5M PRN 11/13/19 12:18 TROPONIN I [CHEM] Stat
[2019-11-13] MEDS ORDERED: Nitroglycerin 0.4 MG Tab.SL SL PRN (10:37)
[2019-11-13] MEDS ORDERED: Aspirin 81 MG Tab.Chew PO ONE (10:38)
[2019-11-13 10:50] LABS: BLOOD UREA NITROGEN,BUN 13 mg/dL (7.0-18.0); CARBON DIOXIDE,CO2 16.8 mmol/L (21.0-32.0); CHLORIDE,CL 96 mmol/L (98-107); GLUCOSE RANDOM 321 mg/dL (74-106); LIPASE 57 U/L (73-393); POTASSIUM,K 4.2 mmol/L (3.5-5.1); SODIUM,NA 136 mmol/L (136-145)
--- NOTE | 2019-11-13 11:05 | CR ---
Chest: Portable view of the chest was obtained. Comparison: No prior chest imaging is available. Heart size and mediastinum are normal. Lungs are clear. Bony structures are grossly intact. Impression: 1. Nothing acute is appreciated on portable chest x-ray. Diagnostic code #1 This report was dictated in MDT
[2019-11-13] MEDS ORDERED: Morphine 4 MG/ML Syringe IVPUSH ONE (11:19)
[2019-11-13] MEDS ORDERED: Lactated Ringers 1,000 ML IV ONE (11:19)
[2019-11-13] MEDS ORDERED: Iopamidol 755 Mg/ML 100 ML Bottle IVPUSH ONE (11:37)
--- NOTE | 2019-11-13 11:50 | CT ---
CT chest Technique: Multiple axial sections were obtained from above the lung apices inferiorly through the lung bases. Intravenous contrast was utilized. Study performed as a pulmonary angiogram protocol. Findings: Pulmonary arteries are not optimally opacified. No filling defects are seen within the main or segmental branches to indicate pulmonary embolism. Smaller subsegmental pulmonary emboli could be missed. Severe fatty infiltration is seen within the liver. Partially visualized small hyperdense nodule is noted within the anterior right lobe measuring about 7 mm. No additional abnormality is appreciated within the upper abdomen. No pericardial thickening is seen. Aorta shows no aneurysm or dissection. No mediastinal adenopathy or hilar adenopathy is noted. No axillary adenopathy is appreciated. Lungs are clear with no acute parenchymal densities. No pleural effusions are seen. No pneumothorax is identified. Bone window settings were reviewed. No acute osseous finding is appreciated. Impression: 1. Pulmonary arteries are not optimally opacified. As mentioned above, no findings of pulmonary embolism are seen within the main or segmental branches. Smaller subsegmental pulmonary emboli could be missed. 2. Severe fatty infiltration within the liver. 3. Partially visualized small hyperdense lesion within the anterior liver. I believe that this is incidental. 4. Nothing acute is appreciated on CT study of the chest. Diagnostic code #2 This report was dictated in MDT
[2019-11-13] MEDS ORDERED: Ondansetron 4 MG/2 ML SDV IVPUSH ONE (12:10)
[2019-11-13 19:33] VITALS: BP 101/61; PULSE 107
== END 2019-11-13 15:10 | disposition home or self-care (01) ==
LOC: MW.ED 09:40
DX: R07.2 Precordial pain (principal); R07.81 Pleurodynia; R74.0 Nonspecific elevation of levels of transaminase and lactic acid dehydrogenase [LDH]; I10 Essential (primary) hypertension; F41.9 Anxiety disorder, unspecified; F32.9 Major depressive disorder, single episode, unspecified; E10.9 Type 1 diabetes mellitus without complications; E03.9 Hypothyroidism, unspecified; R00.0 Tachycardia, unspecified; Z87.891 Personal history of nicotine dependence; Z98.890 Other specified postprocedural states; Z88.5 Allergy status to narcotic agent; Z88.8 Allergy status to other drugs, medicaments and biological substances; Z91.048 Other nonmedicinal substance allergy status; Z79.899 Other long term (current) drug therapy
CPT/HCPCS: 36415; 71045; 71275; 80053; 83690; 84484; 85025; 93005; 96361; 96374; 96375; 99285; A9270; J2270; J2405; J7120; Q9967; 99284

== ENCOUNTER 2019-11-19 11:19 | Inpatient (IN) | payer OTHER ==
[2019-11-19] MEDS ORDERED: Sodium Chloride 0.9% 2.5 ML Syringe FLUSH PRN (11:34)
[2019-11-19] MEDS ORDERED: Lactated Ringers 1,000 ML IV ONE ×2 (11:34→12:56)
[2019-11-19] MEDS ORDERED: Sodium Chloride 0.9% 10 ML Syringe FLUSH PRN (11:34)
[2019-11-19] MEDS ORDERED: Ondansetron 4 MG/2 ML SDV IVPUSH ONE (11:34)
[2019-11-19] MEDS ORDERED: Aspirin 325 MG Tab PO ONE (11:39)
--- NOTE | 2019-11-19 11:42 | EDM.PDOC ---
ED HPI GENERAL MEDICAL PROBLEM - General Chief Complaint: Chest Pain Stated Complaint: CHEST PAIN Time Seen by Provider: 11/19/19 11:24 Source of Information: Reports: Patient, Old Records History Limitations: Reports: No Limitations - History of Present Illness INITIAL COMMENTS - FREE TEXT/NARRATIVE: 44-year-old female with a past medical history of type 1 diabetes mellitus, hy pertension, hypothyroidism presenting with chest pain and shortness of breath. Was recently evaluated in our emergency department on 11/13/2019 for chest pain. She underwent a CT pulmonary angiogram that did not optimally opacify the pulmonary arteries. Patient was discharged home with a diagnosis of nonspecific chest pain. This morning, the patient presents the emergency department with sudden onset of substernal chest pain around 11:00 AM. Described as "burning and tightness", radiates to the back and the left side of the arm. Somewhat worse with a deep breath, described as "sharp pain". Constant pain since the onset, rated as 10 out of 10. Also complains of nausea without vomiting. Denies fever, cough, hemoptysis, lower extremity swelling or pain, history of VTE, malignancy, recent surgery or immobilization or long travel, estrogen or hormone use. No personal history of coronary artery disease or stroke. No history of recurrent vomiting. Took 2 aspirin tablets and a benzodiazepine medication prior to arrival without relief. ROS: A 10-point review of systems was negative, except as noted in the HPI (or in the ROS section of this note). Past medical history: Reviewed, no additional pertinent history. Surgical history: Reviewed in system, no additional pertinent history. Social history: Reviewed in system, no additional pertinent history. Family history: Reviewed in system, no additional pertinent history. PHYSICAL EXAM Vital signs reviewed. Nursing notes reviewed. Constitutional: Awake, alert, non-distressed. Head: Normocephalic, atraumatic. Eyes: EOMI, conjunctiva normal, no discharge, no scleral icterus. Ears, Nose, Throat: External ears and nose normal, moist oral mucosa. Cardiovascular: Tachycardic, 2+ radial pulses bilaterally, capillary refill less than 2 seconds. RRR no MRG Pulmonary: normal work of breathing, no accessory muscle use. CTA BL Abdomen/GI: Soft, nontender, nondistended, no guarding or rigidity, no masses. Musculoskeletal: No deformities. Integumentary: Appropriate color for ethnicity, warm, dry, no pallor or jaundice, no rash. Neurologic: Alert, answering questions appropriately, normal speech, no facial droop, moving all extremities well. Psychiatric: Appropriate mood and affect, normal thought process. Chest Pain Score (Numeric/FACES): 10 - Related Data Allergies Allergy/AdvReac Type Severity Reaction Status Date / Time codeine Allergy Itching Verified 11/19/19 11:42 fluoxetine Allergy Confusion Verified 11/19/19 11:42 meperidine HCl [From Demerol] Allergy Hives/reddn Verified 11/19/19 11:42 ess/swellin g Flu Mist Allergy Swelling Uncoded 11/13/19 09:57 Home Meds: Home Meds ALPRAZolam [ALPRAZolam ER] 0.5 - 1 mg PO DAILY PRN 09/29/13 [History] Clobetasol [Clobetasol Propionate 0.05%] 15 gm TOP BID PRN 09/29/13 [History] Levothyroxine 100 mcg PO QAM 09/29/13 [History] Insulin Aspart [NovoLOG] 40 unit IMPLANT DAILY 01/19/15 [History] Lisinopril 10 mg PO BEDTIME 03/10/18 [History] Furosemide 1 tab PO ASDIRECTED 01/25/19 [History] Pramipexole [Mirapex] 1 tab PO DAILY 01/25/19 [History] Acetaminophen/HYDROcodone [Foss 325-5 MG] 1 tab PO ASDIRECTED 11/13/19 [History] Verapamil [Verapamil SR (24 Hr)] 120 mg PO DAILY 11/13/19 [History] amLODIPine Besylate [Amlodipine Besylate] 10 mg PO DAILY 11/13/19 [History] clonazePAM [Clonazepam] 0.5 mg PO DAILY 11/13/19 [History] Past Medical History HEENT History: Reports: Other (See Below) Other HEENT History: wears glasses Cardiovascular History: Reports: Hypertension Respiratory History: Reports: None Other Respiratory History: Former smoker QUIT '2009 Gastrointestinal History: Reports: Chronic Constipation, Colon Polyp, GERD, Hemorrhoids, Helicobacter Pylori, Irritable Bowel Syndrome, Other (See Below) Other Gastrointestinal History: hx of C-Diff earlier this year Genitourinary History: Reports: None Other Genitourinary History: history of yeast infections VALIDATION INTERN History: Reports: Musculoskeletal History: Reports: Arthritis, Back Pain, Chronic, Fibromyalgia, Neck Pain, Chronic Neurological History: Reports: Concussion, Headaches, Chronic, Migraines, Other (See Below) Other Neuro History: hx of motion sickness, has Restless Leg Syndrome Psychiatric History: Reports: Anxiety, Depression Endocrine/Metabolic History: Reports: Diabetes, Type I, Hypothyroidism, IDDM Other Endocrine/Metabolic History: Hypothyroidism Hematologic History: Reports: None Immunologic History: Reports: None Oncologic (Cancer) History: Reports: None Dermatologic History: Reports: Psoriasis - Infectious Disease History Infectious Disease History: Reports: Chicken Pox - Past Surgical History Head Surgeries/Procedures: Reports: None HEENT Surgical History: Reports: Adenoidectomy, Tonsillectomy Other HEENT Surgeries/Procedures: [place] teeth extracted GI Surgical History: Reports: Colonoscopy, EGD Female Surgical History: Reports: Section, Hysterectomy, Tubal Ligation Other Female Surgeries/Procedures: Laparoscopy, Hysteroscopy, Essure Procedure Neurological Surgical History: Reports: C-Spine, Spinal Fusion Other Neurological Surgeries/Procedures: cervical fusion, C5-6 Social & Family History - Family History Family Medical History: Noncontributory - Caffeine Use Caffeine Use: Reports: None ED ROS GENERAL - Review of Systems Review Of Systems: See Below ED EXAM, GENERAL - Physical Exam Exam: See Below EKG INTERPRETATION EKG Interpretation Comments: 12-Lead ECG Interpretation Acquired: 11:26 AM Rhythm: Sinus tachycardia Rate: 103 bpm [place]: Normal Intervals: Normal Ectopy: None Ischemic Changes: None apparent RV Strain: No obvious RV strain pattern. ST Segments/T-Waves: No notable changes Interpretation: Unremarkable Course - Vital Signs Text/Narrative:: Patient hemodynamically stable, afebrile, well-appearing, looks nontoxic. Differential diagnosis includes but is not limited to: ACS, pulmonary embolism, aortic dissection, acute systolic heart failure, pneumonia, pneumothorax, pericardial effusion, pleural effusion, pericarditis, endocarditis, esophageal rupture, GERD, drug-induced chest pain, chest wall pain, and many others. 1257: CBC shows a leukocytosis, elevated d-dimer at 0.82. Mild hyponatremia. Initial negative troponin. Glucose 426 with a mildly low carbon dioxide concerning for acidosis. We will add on a venous blood gas, serum ketones, and urinalysis to look for ketonuria and glycosuria. Ordered a second liter of lactated Ringer's. Blood gas returned showing mild acidosis with low bicarbonate. Patient meets diagnostic criteria for DKA with ketones in the blood and urine. Given a second liter of lactated Ringer's and we will start an insulin infusion and give IV p otassium chloride. Chest pain somewhat improved after aspirin. Nausea resolved. Added on blood cultures. Magnesium and phosphorus are normal. CT pulmonary angiogram shows no evidence of venous thromboembolism or pneumonia. We will plan to admit to the intensive care unit on observation status for mild diabetic ketoacidosis and for work-up of chest pain. I spoke with the hospitalist Dr. Juan Isbell who agrees to admit. HEART Score for Major Cardiac Events RESULT SUMMARY: 2 points Low Score (0-3 points) Risk of MACE of 0.9-1.7%. INPUTS: History > 1 = Moderately suspicious EKG > 0 = Normal Age > 0 = <45 Risk factors > 1 = 1-2 risk factors Initial troponin > 0 = ?normal limit Last Recorded V/S: Last Vital Signs Temp 35.7 C L 11/19/19 11:35 Pulse 96 11/19/19 14:47 Resp 20 11/19/19 14:47 BP 110/73 11/19/19 14:47 Pulse Ox 96 11/19/19 14:47 - Orders/Labs/Meds Orders: Active Orders 24 hr Category Date Time Status Admission Status [Patient Status] [ADT] Stat ADT 11/19/19 13:26 Active Cardiac Monitoring [RC] . DIRECTED Care 11/19/19 11:34 Active Communication Order [RC] STAT Care 11/19/19 13:20 Active Pulse Oximetry [RC] ASDIRECTED Care 11/19/19 11:34 Active CULTURE BLOOD [BC] Stat Lab 11/19/19 13:20 Received CULTURE BLOOD [BC] Stat Lab 11/19/19 14:47 Received TROPONIN I [CHEM] Routine Lab 11/19/19 14:47 Received Insulin Regular, Human [NovoLIN R] 100 unit Med 11/19/19 13:30 Active Sodium Chloride 0.9% [Normal Saline] 99 ml IV TITRATE Potassium Chloride Riders [KCL 20 MEQ in Water 50 ML] Med 11/19/19 13:21 Active 20 meq Premix Bag 1 bag IV ONETIME Sodium Chloride 0.9% [Saline Flush] Med 11/19/19 11:34 Active 10 ml FLUSH ASDIRECTED PRN Sodium Chloride 0.9% [Saline Flush] Med 11/19/19 11:34 Active 2.5 ml FLUSH ASDIRECTED PRN Blood Culture x2 Reflex Set [OM.PC] Stat Ot 11/19/19 13:20 Ordered Saline Lock Insert [OM.PC] Stat Ot 11/19/19 11:34 Ordered Medication Orders Potassium Chloride 20 meq/ (Premix) 50 mls @ 25 mls/hr IV ONETIME ONE Stop: 11/19/19 15:20 Last Admin: 11/19/19 14:04 Dose: 25 mls/hr Documented by: EVARISTO Insulin Human Regular 100 unit (/ Sodium Chloride) 100 mls @ 7 mls/hr IV TITRATE LESLIE; Protocol Last Admin: 11/19/19 14:32 Dose: 7 unit/hr, 7 mls/hr Documented by: EVARISTO Cosigned by: VICK Sodium Chloride (Normal Saline) 250 mls @ 100 mls/hr IV ASDIRECTED LESLIE Last Admin: 11/19/19 14:49 Dose: 100 mls/hr Documented by: EVARISTO Sodium Chloride (Sodium Chloride 0.45%) 1,000 mls @ 250 mls/hr IV ASDIRECTED LESLIE Sodium Chloride (Saline Flush) 2.5 ml FLUSH ASDIRECTED PRN PRN Reason: Keep Vein Open Sodium Chloride (Saline Flush) 10 ml FLUSH ASDIRECTED PRN PRN Reason: Keep Vein Open Labs: Laboratory Tests 11/19/19 11/19/19 11/19/19 Range/Units 11:30 11:30 11:30 WBC 14.80 H (4.0-11.0) K/uL RBC 4.43 (4.30-5.90) M/uL Hgb 15.5 (12.0-16.0) g/dL Hct 45.2 (36.0-46.0) % MCV 102.0 H (80.0-98.0) fL MCH 35.0 H (27.0-32.0) pg MCHC 34.3 (31.0-37.0) g/dL RDW Std Deviation 46.7 (28.0-62.0) fl RDW Coeff of Juan 13 (11.0-15.0) % Plt Count 218 (150-400) K/uL MPV 10.90 (7.40-12.00) fL Neut % (Auto) 76.0 (48.0-80.0) % Lymph % (Auto) 15.1 L (16.0-40.0) % [place] % (Auto) 7.2 (0.0-15.0) % Eos % (Auto) 1.4 (0.0-7.0) % Baso % (Auto) 0.3 (0.0-1.5) % Neut # (Auto) 11.3 H (1.4-5.7) K/uL Lymph # (Auto) 2.2 (0.6-2.4) K/uL [place] # (Auto) 1.1 H (0.0-0.8) K/uL Eos # (Auto) 0.2 (0.0-0.7) K/uL Baso # (Auto) 0.0 (0.0-0.1) K/uL Nucleated RBC % 0.0 /100WBC Nucleated RBCs # 0 K/uL D-Dimer, Quantitative (0.0-0.50) mg/L FEU VBG pH (7.31-7.41) VBG pCO2 (35-45) mmHG VBG pO2 (30-40) mmHG VBG HCO3 (22-30) mEq/L VBG Total CO2 (41-51) mmol/L VBG Base Excess (-3.0-3.0) Sodium 134 L (136-145) mmol/L Potassium 4.3 (3.5-5.1) mmol/L Chloride 95 L (98-107) mmol/L Carbon Dioxide 14.0 L (21.0-32.0) mmol/L BUN 14 (7.0-18.0) mg/dL Creatinine 1.0 (0.6-1.0) mg/dL Est Cr Clr Drug Dosing 61.99 mL/min Estimated GFR (MDRD) > 60.0 ml/min Glucose 426 H (74-106) mg/dL Calcium 9.4 (8.5-10.1) mg/dL Phosphorus (2.6-4.7) mg/dL Magnesium (1.8-2.4) mg/dL Total Bilirubin 0.8 (0.2-1.0) mg/dL AST 70 H (15-37) IU/L ALT 61 (14-63) IU/L Alkaline Phosphatase 136 H (46-116) U/L Troponin I < 0.050 (0.000-0.056) ng/mL Total Protein 7.1 (6.4-8.2) g/dL Albumin 3.8 (3.4-5.0) g/dL Globulin 3.3 (2.6-4.0) g/dL Albumin/Globulin Ratio 1.2 (0.9-1.6) HCG, Qual NEGATIVE (NEG) Urine Color Urine Appearance Urine pH (5.0-8.0) Ur Specific [place] (1.001-1.035) Urine Protein (NEGATIVE) mg/dL Urine Glucose (UA) (NEGATIVE) mg/dL Urine Ketones (NEGATIVE) mg/dL Urine Occult Blood (NEGATIVE) Urine Nitrite (NEGATIVE) Urine Bilirubin (NEGATIVE) Urine Urobilinogen (<2.0) EU/dL Ur Leukocyte Esterase (NEGATIVE) Urine RBC (0-2/HPF) Urine WBC (0-5/HPF) Ur Squamous Epith Cells Urine Bacteria (NEGATIVE) Urine Yeast Ketones (NEG) 11/19/19 11/19/19 11/19/19 Range/Units 11:30 11:30 11:30 WBC (4.0-11.0) K/uL RBC (4.30-5.90) M/uL Hgb (12.0-16.0) g/dL Hct (36.0-46.0) % MCV (80.0-98.0) fL MCH (27.0-32.0) pg MCHC (31.0-37.0) g/dL RDW Std Deviation (28.0-62.0) fl RDW Coeff of Juan (11.0-15.0) % Plt Count (150-400) K/uL MPV (7.40-12.00) fL Neut % (Auto) (48.0-80.0) % Lymph % (Auto) (16.0-40.0) % [place] % (Auto) (0.0-15.0) % Eos % (Auto) (0.0-7.0) % Baso % (Auto) (0.0-1.5) % Neut # (Auto) (1.4-5.7) K/uL Lymph # (Auto) (0.6-2.4) K/uL [place] # (Auto) (0.0-0.8) K/uL Eos # (Auto) (0.0-0.7) K/uL Baso # (Auto) (0.0-0.1) K/uL Nucleated RBC % /100WBC Nucleated RBCs # K/uL D-Dimer, Quantitative 0.82 H (0.0-0.50) mg/L FEU VBG pH 7.29 L (7.31-7.41) VBG pCO2 26 L (35-45) mmHG VBG pO2 75 H (30-40) mmHG VBG HCO3 13 L (22-30) mEq/L VBG Total CO2 11 L (41-51) mmol/L VBG Base Excess -11.9 L (-3.0-3.0) Sodium (136-145) mmol/L Potassium (3.5-5.1) mmol/L Chloride (98-107) mmol/L Carbon Dioxide (21.0-32.0) mmol/L BUN (7.0-18.0) mg/dL Creatinine (0.6-1.0) mg/dL Est Cr Clr Drug Dosing mL/min Estimated GFR (MDRD) ml/min Glucose (74-106) mg/dL Calcium (8.5-10.1) mg/dL Phosphorus (2.6-4.7) mg/dL Magnesium (1.8-2.4) mg/dL Total Bilirubin (0.2-1.0) mg/dL AST (15-37) IU/L ALT (14-63) IU/L Alkaline Phosphatase (46-116) U/L Troponin I (0.000-0.056) ng/mL Total Protein (6.4-8.2) g/dL Albumin (3.4-5.0) g/dL Globulin (2.6-4.0) g/dL Albumin/Globulin Ratio (0.9-1.6) HCG, Qual (NEG) Urine Color Urine Appearance Urine pH (5.0-8.0) Ur Specific [place] (1.001-1.035) Urine Protein (NEGATIVE) mg/dL Urine Glucose (UA) (NEGATIVE) mg/dL Urine Ketones (NEGATIVE) mg/dL Urine Occult Blood (NEGATIVE) Urine Nitrite (NEGATIVE) Urine Bilirubin (NEGATIVE) Urine Urobilinogen (<2.0) EU/dL Ur Leukocyte Esterase (NEGATIVE) Urine RBC (0-2/HPF) Urine WBC (0-5/HPF) Ur Squamous Epith Cells Urine Bacteria (NEGATIVE) Urine Yeast Ketones MODERATE H (NEG) 11/19/19 11/19/19 Range/Units 11:30 12:55 WBC (4.0-11.0) K/uL RBC (4.30-5.90) M/uL Hgb (12.0-16.0) g/dL Hct (36.0-46.0) % MCV (80.0-98.0) fL MCH (27.0-32.0) pg MCHC (31.0-37.0) g/dL RDW Std Deviation (28.0-62.0) fl RDW Coeff of Juan (11.0-15.0) % Plt Count (150-400) K/uL MPV (7.40-12.00) fL Neut % (Auto) (48.0-80.0) % Lymph % (Auto) (16.0-40.0) % [place] % (Auto) (0.0-15.0) % Eos % (Auto) (0.0-7.0) % Baso % (Auto) (0.0-1.5) % Neut # (Auto) (1.4-5.7) K/uL Lymph # (Auto) (0.6-2.4) K/uL [place] # (Auto) (0.0-0.8) K/uL Eos # (Auto) (0.0-0.7) K/uL Baso # (Auto) (0.0-0.1) K/uL Nucleated RBC % /100WBC Nucleated RBCs # K/uL D-Dimer, Quantitative (0.0-0.50) mg/L FEU VBG pH (7.31-7.41) VBG pCO2 (35-45) mmHG VBG pO2 (30-40) mmHG VBG HCO3 (22-30) mEq/L VBG Total CO2 (41-51) mmol/L VBG Base Excess (-3.0-3.0) Sodium (136-145) mmol/L Potassium (3.5-5.1) mmol/L Chloride (98-107) mmol/L Carbon Dioxide (21.0-32.0) mmol/L BUN (7.0-18.0) mg/dL Creatinine (0.6-1.0) mg/dL Est Cr Clr Drug Dosing mL/min Estimated GFR (MDRD) ml/min Glucose (74-106) mg/dL Calcium (8.5-10.1) mg/dL Phosphorus 4.5 (2.6-4.7) mg/dL Magnesium 1.9 (1.8-2.4) mg/dL Total Bilirubin (0.2-1.0) mg/dL AST (15-37) IU/L ALT (14-63) IU/L Alkaline Phosphatase (46-116) U/L Troponin I (0.000-0.056) ng/mL Total Protein (6.4-8.2) g/dL Albumin (3.4-5.0) g/dL Globulin (2.6-4.0) g/dL Albumin/Globulin Ratio (0.9-1.6) HCG, Qual (NEG) Urine Color YELLOW Urine Appearance CLEAR Urine pH 5.5 (5.0-8.0) Ur Specific [place] 1.025 (1.001-1.035) Urine Protein TRACE H (NEGATIVE) mg/dL Urine Glucose (UA) >=1000 (NEGATIVE) mg/dL Urine Ketones >=80 (NEGATIVE) mg/dL Urine Occult Blood NEGATIVE (NEGATIVE) Urine Nitrite NEGATIVE (NEGATIVE) Urine Bilirubin NEGATIVE (NEGATIVE) Urine Urobilinogen 0.2 (<2.0) EU/dL Ur Leukocyte Esterase NEGATIVE (NEGATIVE) Urine RBC NONE SEEN (0-2/HPF) Urine WBC NONE SEEN (0-5/HPF) Ur Squamous Epith Cells RARE Urine Bacteria NOT SEEN (NEGATIVE) Urine Yeast FEW Ketones (NEG) Meds: Medications Generic Name Dose Route Start Last Admin Trade Name Freq PRN Reason Stop Dose Admin Potassium Chloride 20 meq/ 50 mls @ 25 mls/hr 11/19/19 13:21 11/19/19 14:04 Premix IV 11/19/19 15:20 25 mls/hr ONETIME ONE Administration Insulin Human Regular 100 unit 100 mls @ 7 mls/hr 11/19/19 13:30 11/19/19 14:32 / Sodium Chloride IV 7 unit/hr TITRATE LESLIE 7 mls/hr Administration Protocol 7 UNIT/HR Sodium Chloride 250 mls @ 100 mls/hr 11/19/19 15:00 11/19/19 14:49 Normal Saline IV 100 mls/hr ASDIRECTED LESLIE Administration Sodium Chloride 1,000 mls @ 250 mls/hr 11/19/19 15:15 Sodium Chloride 0.45% IV ASDIRECTED LESLIE Sodium Chloride 2.5 ml 11/19/19 11:34 Saline Flush FLUSH ASDIRECTED PRN Keep Vein Open Sodium Chloride 10 ml 11/19/19 11:34 Saline Flush FLUSH ASDIRECTED PRN Keep Vein Open Discontinued Medications Generic Name Dose Route Start Last Admin Trade Name Rick PRN Reason Stop Dose Admin Aspirin 325 mg 11/19/19 11:39 11/19/19 11:53 Aspirin PO 11/19/19 11:40 325 mg ONETIME ONE Administration Fentanyl 50 mcg 11/19/19 14:50 11/19/19 14:55 Fentanyl IVPUSH 11/19/19 14:51 50 mcg ONETIME ONE Administration Lactated Ringer's 1,000 mls @ 999 mls/hr 11/19/19 11:34 11/19/19 11:53 Ringers, Lactated IV 11/19/19 12:34 999 mls/hr .BOLUS ONE Administration Lactated Ringer's 1,000 mls @ 999 mls/hr 11/19/19 12:56 11/19/19 14:06 Ringers, Lactated IV 11/19/19 13:56 999 mls/hr .BOLUS ONE Administration Iopamidol 60 ml 11/19/19 12:58 11/19/19 12:59 Isovue Multipack-370 (76%) IVPUSH 11/19/19 12:59 60 ml ONETIME ONE Administration Ondansetron HCl 4 mg 11/19/19 11:34 11/19/19 11:52 Zofran IVPUSH 11/19/19 11:35 4 mg ONETIME ONE Administration Departure - Departure Time of Disposition: 14:05 Disposition: Refer to Observation Condition: Good Clinical Impression: Diabetic ketoacidosis Qualifiers: Diabetes mellitus type: type 1 Diabetes mellitus complication detail: without coma Qualified Code(s): E10.10 - Type 1 diabetes mellitus with ketoacidosis without coma Sepsis Event Note (ED) - Focused Exam Vital Signs: Vital Signs Temp Pulse Resp BP Pulse Ox 11/19/19 13:05 99 20 89/53 L 96 11/19/19 12:05 85 18 85/47 L 95 11/19/19 11:54 95 20 92/55 L 95 11/19/19 11:35 35.7 C L 112 H 20 121/73 98 - My Orders Last 24 Hours: My Active Orders 11/19/19 11:34 Cardiac Monitoring [RC] . DIRECTED Pulse Oximetry [RC] ASDIRECTED Sodium Chloride 0.9% [Saline Flush] 10 ml FLUSH ASDIRECTED PRN Sodium Chloride 0.9% [Saline Flush] 2.5 ml FLUSH ASDIRECTED PRN Saline Lock Insert [OM.PC] Stat 11/19/19 13:20 Communication Order [RC] STAT CULTURE BLOOD [BC] Stat Blood Culture x2 Reflex Set [OM.PC] Stat 11/19/19 13:21 Potassium Chloride Riders [KCL 20 MEQ in Water 50 ML] 20 meq Premix Bag 1 bag IV ONETIME 11/19/19 13:26 Admission Status [Patient Status] [ADT] Stat 11/19/19 13:30 Insulin Regular, Human [NovoLIN R] 100 unit Sodium Chloride 0.9% [Normal Sali ne] 99 ml IV TITRATE 11/19/19 14:47 CULTURE BLOOD [BC] Stat TROPONIN I [CHEM] Routine - Assessment/Plan Last 24 Hours: My Active Orders 11/19/19 11:34 Cardiac Monitoring [RC] . DIRECTED Pulse Oximetry [RC] ASDIRECTED Sodium Chloride 0.9% [Saline Flush] 10 ml FLUSH ASDIRECTED PRN Sodium Chloride 0.9% [Saline Flush] 2.5 ml FLUSH ASDIRECTED PRN Saline Lock Insert [OM.PC] Stat 11/19/19 13:20 Communication Order [RC] STAT CULTURE BLOOD [BC] Stat Blood Culture x2 Reflex Set [OM.PC] Stat 11/19/19 13:21 Potassium Chloride Riders [KCL 20 MEQ in Water 50 ML] 20 meq Premix Bag 1 bag IV ONETIME 11/19/19 13:26 Admission Status [Patient Status] [ADT] Stat 11/19/19 13:30 Insulin Regular, Human [NovoLIN R] 100 unit Sodium Chloride 0.9% [Normal Saline] 99 ml IV TITRATE 11/19/19 14:47 CULTURE BLOOD [BC] Stat TROPONIN I [CHEM] Routine
[2019-11-19 12:13] LABS: BLOOD UREA NITROGEN,BUN 14 mg/dL (7.0-18.0); CHLORIDE,CL 95 mmol/L (98-107); GLUCOSE RANDOM 426 mg/dL (74-106); POTASSIUM,K 4.3 mmol/L (3.5-5.1); SODIUM,NA 134 mmol/L (136-145)
[2019-11-19] MEDS ORDERED: Iopamidol 755 MG/ML 500 ML Multipack Bottle IVPUSH ONE (12:58)
--- NOTE | 2019-11-19 13:11 | CR ---
Chest: 2 views of the chest were obtained. Comparison: Prior chest x-ray 11/13/19. Slight atelectasis within the left mid to lower lung. Lungs otherwise are clear. Prior cervical spine surgery is noted. Bony structures are otherwise unremarkable. Heart size and mediastinum are normal. Impression: 1. Minimal atelectasis. 2. Nothing acute is identified on 2 view chest x-ray. Diagnostic code #2 This report was dictated in MDT
--- NOTE | 2019-11-19 13:11 | CT ---
CT chest Technique: Multiple axial sections through the chest were obtained. Intravenous contrast was utilized. Study performed as a pulmonary angiogram protocol. Findings: Pulmonary arteries are well opacified. No filling defects are seen to indicate pulmonary embolism. Mild coronary artery calcification is seen. Aorta shows no aneurysm. No axillary adenopathy is seen. Fatty infiltration is seen throughout the liver. Lungs are clear with no acute parenchymal change. Minimal areas of atelectasis noted. No pleural effusions or pneumothorax is seen. Bone window settings were reviewed which shows no acute osseous finding. Impression: 1. Fatty infiltration within the liver. 2. No findings of pulmonary embolism. 3. Mild scattered areas of atelectasis. Diagnostic code #2 This report was dictated in MDT
[2019-11-19] MEDS ORDERED: Potassium Chloride Riders 20 MEQ in Premix Bag 1 BAG IV ONE (13:21)
[2019-11-19 14:48] VITALS: PULSE 96
[2019-11-19] MEDS ORDERED: fentaNYL 50 MCG/ML SDV IVPUSH ONE (14:50)
[2019-11-19] MEDS ORDERED: Sodium Chloride 0.45% with KCl 1,000 ML IV SCH (15:00)
[2019-11-19] MEDS ORDERED: Sodium Chloride 0.9% 250 ML IV SCH (15:00)
[2019-11-19] MEDS ORDERED: Acetaminophen 325 MG Tab PO PRN (15:08)
[2019-11-19] MEDS ORDERED: Ondansetron 4 MG/2 ML SDV IVPUSH PRN (15:08)
[2019-11-19] MEDS ORDERED: Ondansetron 4 MG Tab.DIS PO PRN (15:08)
[2019-11-19] MEDS ORDERED: Sodium Chloride 0.9% 1,000 ML IV ONE (15:12)
[2019-11-19] MEDS ORDERED: Enoxaparin 40 MG/0.4 ML Syringe SUBCUT SCH (15:15)
[2019-11-19] MEDS ORDERED: Sodium Chloride 0.45% 1,000 ML IV SCH (15:15)
--- NOTE | 2019-11-19 15:28 | PCM.HP.2 ---
H&P History of Present Illness - General Date of Service: 11/19/19 Admit Problem/Dx: Admission Diagnosis/Problem Admission Diagnosis/Problem Diabetic ketoacidosis Source of Information: Patient History Limitations: Reports: No Limitations - History of Present Illness Initial Comments - Free Text/Narative: 44-year-old female presents today with left sided chest pain. She has a PMH of type 1 DM, HTN, hypothyroidism and fibromyalgia. Patient reports that for the past few days she has had intermittent left sided chest pain that is burning and tight in nature. The pain will radiate into her left arm, neck and back. There is associated shortness of breath. She has also felt nauseated and vomited when it occurred a few days ago. Today's occurrence woke her up from sleep this morning and she immediately came to the ER. Patient reports pain has improved a bit since coming to the ER. She reports having a sore throat. Denies any fevers, chills, diarrhea, pain on urination, blood in urine, diarrhea, blood in stool, abdominal pain, numbness or tingling in extremities. In the ER, EKG was unremarkable. WBC 14.80, troponin negative, d-dimer 0.82, VBG: pH 7.29, pCO2 26 and HCO3 13. CXR showed left lower lung atelactasis. CTA chest negative for PE. UA positive for glucose and ketones. Patient's glucose was > 500 and she notes that insulin pump had detached this morning. Patient given aspirin, 2 L of IV LR's, started on insulin drip and admitted for further evaluation and treatment. Chest Pain Score (Numeric/FACES): 10 - Related Data Allergies/Adverse Reactions: Allergies Allergy/AdvReac Type Severity Reaction Status Date / Time codeine Allergy Itching Verified 11/19/19 11:42 fluoxetine Allergy Confusion Verified 11/19/19 11:42 meperidine HCl [From Demerol] Allergy Hives/reddn Verified 11/19/19 11:42 ess/swellin g Flu Mist Allergy Swelling Uncoded 11/13/19 09:57 Home Medications: Home Meds ALPRAZolam [ALPRAZolam ER] 0.5 - 1 mg PO DAILY PRN 09/29/13 [History] Clobetasol [Clobetasol Propionate 0.05%] 15 gm TOP BID PRN 09/29/13 [History] Levothyroxine 100 mcg PO QAM 09/29/13 [History] Insulin Aspart [NovoLOG] 40 unit IMPLANT DAILY 01/19/15 [History] Lisinopril 10 mg PO BEDTIME 03/10/18 [History] Furosemide 1 tab PO ASDIRECTED 01/25/19 [History] Pramipexole [Mirapex] 1 tab PO DAILY 01/25/19 [History] Acetaminophen/HYDROcodone [[place] 325-5 MG] 1 tab PO ASDIRECTED 11/13/19 [History] Verapamil [Verapamil SR (24 Hr)] 120 mg PO DAILY 11/13/19 [History] amLODIPine Besylate [Amlodipine Besylate] 10 mg PO DAILY 11/13/19 [History] clonazePAM [Clonazepam] 0.5 mg PO DAILY 11/13/19 [History] Past Medical History HEENT History: Reports: Other (See Below) Other HEENT History: wears glasses Cardiovascular History: Reports: Hypertension Respiratory History: Reports: None Other Respiratory History: Former smoker QUIT Gastrointestinal History: Reports: Chronic Constipation, Colon Polyp, GERD, Hemorrhoids, Helicobacter Pylori, Irritable Bowel Syndrome, Other (See Below) Other Gastrointestinal History: hx of C-Diff earlier this year Genitourinary History: Reports: None Other Genitourinary History: history of yeast infections 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: Reports: Musculoskeletal History: Reports: Arthritis, Back Pain, Chronic, Fibromyalgia, Neck Pain, Chronic Neurological History: Reports: Concussion, Headaches, Chronic, Migraines, Other (See Below) Other Neuro History: hx of motion sickness, has Restless Leg Syndrome Psychiatric History: Reports: Anxiety, Depression Endocrine/Metabolic History: Reports: Diabetes, Type I, Hypothyroidism, IDDM Other Endocrine/Metabolic History: Hypothyroidism Hematologic History: Reports: None Immunologic History: Reports: None Oncologic (Cancer) History: Reports: None Dermatologic History: Reports: Psoriasis - Infectious Disease History Infectious Disease History: Reports: Chicken Pox - Past Surgical History Head Surgeries/Procedures: Reports: None HEENT Surgical History: Reports: Adenoidectomy, Tonsillectomy Other HEENT Surgeries/Procedures: [place] teeth extracted GI Surgical History: Reports: Colonoscopy, EGD Female Surgical History: Reports: Section, Hysterectomy, Tubal Ligation Other Female Surgeries/Procedures: Laparoscopy, Hysteroscopy, Essure Procedure Neurological Surgical History: Reports: C-Spine, Spinal Fusion Other Neurological Surgeries/Procedures: cervical fusion, C5-6 Social & Family History - Family History Family Medical History: Noncontributory - Tobacco Use Smoking Status *Q: Never Smoker - Caffeine Use Caffeine Use: Reports: None - Recreational Drug Use Recreational Drug Use: No H&P Review of Systems - Review of Systems: Review Of Systems: Comprehensive ROS is negative, except as noted in HPI. Exam - Exam Exam: See Below - Vital Signs Vital Signs: Last Vital Signs Temp 35.7 C L 11/19/19 11:35 Pulse 96 11/19/19 14:47 Resp 20 11/19/19 14:47 BP 110/73 11/19/19 14:47 Pulse Ox 96 11/19/19 14:47 Weight: 72.575 kg - Exam General: Alert, Oriented, Cooperative HEENT: Conjunctiva Clear, EOMI, Pupils Equal Lungs: Clear to Auscultation, Normal Respiratory Effort Cardiovascular: Regular Rate, Regular Rhythm GI/Abdominal Exam: Normal Bowel Sounds, Soft, Non-Tender, No Distention Extremities: Normal Inspection, No Pedal Edema Skin: Warm, Dry, Intact Neurological: Cranial Nerves Intact, Strength Equal Bilateral, Normal Speech, Normal Tone Neuro Extensive - Mental Status: Alert, Oriented x3, Normal Mood/Affect - Patient Data Lab Results Last 24 hrs: Laboratory Results - last 24 hr 11/19/19 11/19/19 11/19/19 Range/Units 11:30 11:30 11:30 WBC 14.80 H (4.0-11.0) K/uL RBC 4.43 (4.30-5.90) M/uL Hgb 15.5 (12.0-16.0) g/dL Hct 45.2 (36.0-46.0) % MCV 102.0 H (80.0-98.0) fL MCH 35.0 H (27.0-32.0) pg MCHC 34.3 (31.0-37.0) g/dL RDW Std Deviation 46.7 (28.0-62.0) fl RDW Coeff of Juan 13 (11.0-15.0) % Plt Count 218 (150-400) K/uL MPV 10.90 (7.40-12.00) fL Neut % (Auto) 76.0 (48.0-80.0) % Lymph % (Auto) 15.1 L (16.0-40.0) % [place] % (Auto) 7.2 (0.0-15.0) % Eos % (Auto) 1.4 (0.0-7.0) % Baso % (Auto) 0.3 (0.0-1.5) % Neut # (Auto) 11.3 H (1.4-5.7) K/uL Lymph # (Auto) 2.2 (0.6-2.4) K/uL [place] # (Auto) 1.1 H (0.0-0.8) K/uL Eos # (Auto) 0.2 (0.0-0.7) K/uL Baso # (Auto) 0.0 (0.0-0.1) K/uL Nucleated RBC % 0.0 /100WBC Nucleated RBCs # 0 K/uL D-Dimer, Quantitative (0.0-0.50) mg/L FEU VBG pH (7.31-7.41) VBG pCO2 (35-45) mmHG VBG pO2 (30-40) mmHG VBG HCO3 (22-30) mEq/L VBG Total CO2 (41-51) mmol/L VBG Base Excess (-3.0-3.0) Sodium 134 L (136-145) mmol/L Potassium 4.3 (3.5-5.1) mmol/L Chloride 95 L (98-107) mmol/L Carbon Dioxide 14.0 L (21.0-32.0) mmol/L BUN 14 (7.0-18.0) mg/dL Creatinine 1.0 (0.6-1.0) mg/dL Est Cr Clr Drug Dosing 61.99 mL/min Estimated GFR (MDRD) > 60.0 ml/min Glucose 426 H (74-106) mg/dL POC Glucose (60-110) mg/dL Calcium 9.4 (8.5-10.1) mg/dL Phosphorus (2.6-4.7) mg/dL Magnesium (1.8-2.4) mg/dL Total Bilirubin 0.8 (0.2-1.0) mg/dL AST 70 H (15-37) IU/L ALT 61 (14-63) IU/L Alkaline Phosphatase 136 H (46-116) U/L Troponin I < 0.050 (0.000-0.056) ng/mL Total Protein 7.1 (6.4-8.2) g/dL Albumin 3.8 (3.4-5.0) g/dL Globulin 3.3 (2.6-4.0) g/dL Albumin/Globulin Ratio 1.2 (0.9-1.6) HCG, Qual NEGATIVE (NEG) Urine Color Urine Appearance Urine pH (5.0-8.0) Ur Specific [place] (1.001-1.035) Urine Protein (NEGATIVE) mg/dL Urine Glucose (UA) (NEGATIVE) mg/dL Urine Ketones (NEGATIVE) mg/dL Urine Occult Blood (NEGATIVE) Urine Nitrite (NEGATIVE) Urine Bilirubin (NEGATIVE) Urine Urobilinogen (<2.0) EU/dL Ur Leukocyte Esterase (NEGATIVE) Urine RBC (0-2/HPF) Urine WBC (0-5/HPF) Ur Squamous Epith Cells Urine Bacteria (NEGATIVE) Urine Yeast Ketones (NEG) COVID-19 (ADAM) (NEGATIVE) 11/19/19 11/19/19 11/19/19 Range/Units 11:30 11:30 11:30 WBC (4.0-11.0) K/uL RBC (4.30-5.90) M/uL Hgb (12.0-16.0) g/dL Hct (36.0-46.0) % MCV (80.0-98.0) fL MCH (27.0-32.0) pg MCHC (31.0-37.0) g/dL RDW Std Deviation (28.0-62.0) fl RDW Coeff of Juan (11.0-15.0) % Plt Count (150-400) K/uL MPV (7.40-12.00) fL Neut % (Auto) (48.0-80.0) % Lymph % (Auto) (16.0-40.0) % [place] % (Auto) (0.0-15.0) % Eos % (Auto) (0.0-7.0) % Baso % (Auto) (0.0-1.5) % Neut # (Auto) (1.4-5.7) K/uL Lymph # (Auto) (0.6-2.4) K/uL [place] # (Auto) (0.0-0.8) K/uL Eos # (Auto) (0.0-0.7) K/uL Baso # (Auto) (0.0-0.1) K/uL Nucleated RBC % /100WBC Nucleated RBCs # K/uL D-Dimer, Quantitative 0.82 H (0.0-0.50) mg/L FEU VBG pH 7.29 L (7.31-7.41) VBG pCO2 26 L (35-45) mmHG VBG pO2 75 H (30-40) mmHG VBG HCO3 13 L (22-30) mEq/L VBG Total CO2 11 L (41-51) mmol/L VBG Base Excess -11.9 L (-3.0-3.0) Sodium (136-145) mmol/L Potassium (3.5-5.1) mmol/L Chloride (98-107) mmol/L Carbon Dioxide (21.0-32.0) mmol/L BUN (7.0-18.0) mg/dL Creatinine (0.6-1.0) mg/dL Est Cr Clr Drug Dosing mL/min Estimated GFR (MDRD) ml/min Glucose (74-106) mg/dL POC Glucose (60-110) mg/dL Calcium (8.5-10.1) mg/dL Phosphorus (2.6-4.7) mg/dL Magnesium (1.8-2.4) mg/dL Total Bilirubin (0.2-1.0) mg/dL AST (15-37) IU/L ALT (14-63) IU/L Alkaline Phosphatase (46-116) U/L Troponin I (0.000-0.056) ng/mL Total Protein (6.4-8.2) g/dL Albumin (3.4-5.0) g/dL Globulin (2.6-4.0) g/dL Albumin/Globulin Ratio (0.9-1.6) HCG, Qual (NEG) Urine Color Urine Appearance Urine pH (5.0-8.0) Ur Specific [place] (1.001-1.035) Urine Protein (NEGATIVE) mg/dL Urine Glucose (UA) (NEGATIVE) mg/dL Urine Ketones (NEGATIVE) mg/dL Urine Occult Blood (NEGATIVE) Urine Nitrite (NEGATIVE) Urine Bilirubin (NEGATIVE) Urine Urobilinogen (<2.0) EU/dL Ur Leukocyte Esterase (NEGATIVE) Urine RBC (0-2/HPF) Urine WBC (0-5/HPF) Ur Squamous Epith Cells Urine Bacteria (NEGATIVE) Urine Yeast Ketones MODERATE H (NEG) COVID-19 (ADAM) (NEGATIVE) 11/19/19 11/19/19 11/19/19 Range/Units 11:30 12:55 14:31 WBC (4.0-11.0) K/uL RBC (4.30-5.90) M/uL Hgb (12.0-16.0) g/dL Hct (36.0-46.0) % MCV (80.0-98.0) fL MCH (27.0-32.0) pg MCHC (31.0-37.0) g/dL RDW Std Deviation (28.0-62.0) fl RDW Coeff of Juan (11.0-15.0) % Plt Count (150-400) K/uL MPV (7.40-12.00) fL Neut % (Auto) (48.0-80.0) % Lymph % (Auto) (16.0-40.0) % [place] % (Auto) (0.0-15.0) % Eos % (Auto) (0.0-7.0) % Baso % (Auto) (0.0-1.5) % Neut # (Auto) (1.4-5.7) K/uL Lymph # (Auto) (0.6-2.4) K/uL [place] # (Auto) (0.0-0.8) K/uL Eos # (Auto) (0.0-0.7) K/uL Baso # (Auto) (0.0-0.1) K/uL Nucleated RBC % /100WBC Nucleated RBCs # K/uL D-Dimer, Quantitative (0.0-0.50) mg/L FEU VBG pH (7.31-7.41) VBG pCO2 (35-45) mmHG VBG pO2 (30-40) mmHG VBG HCO3 (22-30) mEq/L VBG Total CO2 (41-51) mmol/L VBG Base Excess (-3.0-3.0) Sodium (136-145) mmol/L Potassium (3.5-5.1) mmol/L Chloride (98-107) mmol/L Carbon Dioxide (21.0-32.0) mmol/L BUN (7.0-18.0) mg/dL Creatinine (0.6-1.0) mg/dL Est Cr Clr Drug Dosing mL/min Estimated GFR (MDRD) ml/min Glucose (74-106) mg/dL POC Glucose 408 H (60-110) mg/dL Calcium (8.5-10.1) mg/dL Phosphorus 4.5 (2.6-4.7) mg/dL Magnesium 1.9 (1.8-2.4) mg/dL Total Bilirubin (0.2-1.0) mg/dL AST (15-37) IU/L ALT (14-63) IU/L Alkaline Phosphatase (46-116) U/L Troponin I (0.000-0.056) ng/mL Total Protein (6.4-8.2) g/dL Albumin (3.4-5.0) g/dL Globulin (2.6-4.0) g/dL Albumin/Globulin Ratio (0.9-1.6) HCG, Qual (NEG) Urine Color YELLOW Urine Appearance CLEAR Urine pH 5.5 (5.0-8.0) Ur Specific [place] 1.025 (1.001-1.035) Urine Protein TRACE H (NEGATIVE) mg/dL Urine Glucose (UA) >=1000 (NEGATIVE) mg/dL Urine Ketones >=80 (NEGATIVE) mg/dL Urine Occult Blood NEGATIVE (NEGATIVE) Urine Nitrite NEGATIVE (NEGATIVE) Urine Bilirubin NEGATIVE (NEGATIVE) Urine Urobilinogen 0.2 (<2.0) EU/dL Ur Leukocyte Esterase NEGATIVE (NEGATIVE) Urine RBC NONE SEEN (0-2/HPF) Urine WBC NONE SEEN (0-5/HPF) Ur Squamous Epith Cells RARE Urine Bacteria NOT SEEN (NEGATIVE) Urine Yeast FEW Ketones (NEG) COVID-19 (ADAM) (NEGATIVE) 11/19/19 Range/Units 14:33 WBC (4.0-11.0) K/uL RBC (4.30-5.90) M/uL Hgb (12.0-16.0) g/dL Hct (36.0-46.0) % MCV (80.0-98.0) fL MCH (27.0-32.0) pg MCHC (31.0-37.0) g/dL RDW Std Deviation (28.0-62.0) fl RDW Coeff of Juan (11.0-15.0) % Plt Count (150-400) K/uL MPV (7.40-12.00) fL Neut % (Auto) (48.0-80.0) % Lymph % (Auto) (16.0-40.0) % [place] % (Auto) (0.0-15.0) % Eos % (Auto) (0.0-7.0) % Baso % (Auto) (0.0-1.5) % Neut # (Auto) (1.4-5.7) K/uL Lymph # (Auto) (0.6-2.4) K/uL [place] # (Auto) (0.0-0.8) K/uL Eos # (Auto) (0.0-0.7) K/uL Baso # (Auto) (0.0-0.1) K/uL Nucleated RBC % /100WBC Nucleated RBCs # K/uL D-Dimer, Quantitative (0.0-0.50) mg/L FEU VBG pH (7.31-7.41) VBG pCO2 (35-45) mmHG VBG pO2 (30-40) mmHG VBG HCO3 (22-30) mEq/L VBG Total CO2 (41-51) mmol/L VBG Base Excess (-3.0-3.0) Sodium (136-145) mmol/L Potassium (3.5-5.1) mmol/L Chloride (98-107) mmol/L Carbon Dioxide (21.0-32.0) mmol/L BUN (7.0-18.0) mg/dL Creatinine (0.6-1.0) mg/dL Est Cr Clr Drug Dosing mL/min Estimated GFR (MDRD) ml/min Glucose (74-106) mg/dL POC Glucose (60-110) mg/dL Calcium (8.5-10.1) mg/dL Phosphorus (2.6-4.7) mg/dL Magnesium (1.8-2.4) mg/dL Total Bilirubin (0.2-1.0) mg/dL AST (15-37) IU/L ALT (14-63) IU/L Alkaline Phosphatase (46-116) U/L Troponin I (0.000-0.056) ng/mL Total Protein (6.4-8.2) g/dL Albumin (3.4-5.0) g/dL Globulin (2.6-4.0) g/dL Albumin/Globulin Ratio (0.9-1.6) HCG, Qual (NEG) Urine Color Urine Appearance Urine pH (5.0-8.0) Ur Specific [place] (1.001-1.035) Urine Protein (NEGATIVE) mg/dL Urine Glucose (UA) (NEGATIVE) mg/dL Urine Ketones (NEGATIVE) mg/dL Urine Occult Blood (NEGATIVE) Urine Nitrite (NEGATIVE) Urine Bilirubin (NEGATIVE) Urine Urobilinogen (<2.0) EU/dL Ur Leukocyte Esterase (NEGATIVE) Urine RBC (0-2/HPF) Urine WBC (0-5/HPF) Ur Squamous Epith Cells Urine Bacteria (NEGATIVE) Urine Yeast Ketones (NEG) COVID-19 (ADAM) NEGATIVE (NEGATIVE) Result Diagrams: 11/19/19 11:30 11/19/19 14:47 Sepsis Event Note - Evaluation Sepsis Screening Result: No Definite Risk - Focused Exam Vital Signs: Vital Signs Temp Pulse Resp BP Pulse Ox 11/19/19 14:47 96 20 110/73 96 11/19/19 13:05 99 20 89/53 L 96 11/19/19 12:05 85 18 85/47 L 95 11/19/19 11:54 95 20 92/55 L 95 11/19/19 11:35 35.7 C L 112 H 20 121/73 98 Date Exam was Performed: 11/19/19 Time Exam was Performed: 16:50 Problem List Initiated/Reviewed/Updated: Yes Orders Last 24hrs: Active Orders 24 hr Category Date Time Status Admission Status [Patient Status] [ADT] Stat ADT 11/19/19 13:26 Active Accu Check [Blood Glucose Check, Bedside] [RC] Q1H Care 11/19/19 15:18 Ordered Cardiac Monitoring [RC] . DIRECTED Care 11/19/19 11:34 Active Communication Order [RC] STAT Care 11/19/19 13:20 Active Oxygen Therapy [RC] PRN Care 11/19/19 15:08 Active Pulse Oximetry [RC] ASDIRECTED Care 11/19/19 11:34 Active Up ad [place] [RC] ASDIRECTED Care 11/19/19 15:08 Active VTE/DVT Education [RC] PER UNIT ROUTINE Care 11/19/19 15:08 Active Vital Signs [RC] Q4H Care 11/19/19 15:08 Active [employer] [employer] Diet [DIET] Diet 11/19/19 Lunch Active BASIC METABOLIC PANEL,BMP [CHEM] Q4H Lab 11/19/19 15:30 Ordered BASIC METABOLIC PANEL,BMP [CHEM] Q4H Lab 11/19/19 19:30 Ordered BASIC METABOLIC PANEL,BMP [CHEM] Q4H Lab 11/19/19 23:30 Ordered BASIC METABOLIC PANEL,BMP [CHEM] Q4H Lab 11/20/19 03:30 Ordered BASIC METABOLIC PANEL,BMP [CHEM] Q4H Lab 11/20/19 07:30 Ordered BASIC METABOLIC PANEL,BMP [CHEM] Q4H Lab 11/20/19 11:30 Ordered CULTURE BLOOD [BC] Stat Lab 11/19/19 13:20 Received CULTURE BLOOD [BC] Stat Lab 11/19/19 14:47 Received TROPONIN I [CHEM] Q6H Lab 11/19/19 17:30 Ordered TROPONIN I [CHEM] Q6H Lab 11/19/19 23:30 Ordered TROPONIN I [CHEM] Routine Lab 11/19/19 14:47 Received Acetaminophen [Tylenol] Med 11/19/19 15:08 Ordered 650 mg PO Q4H PRN Enoxaparin [Lovenox] Med 11/19/19 15:15 Ordered 40 mg SUBCUT Q24H Insulin Regular, Human [NovoLIN R] 100 unit Med 11/19/19 13:30 Active Sodium Chloride 0.9% [Normal Saline] 99 ml IV TITRATE Ondansetron [Zofran ODT] Med 11/19/19 15:08 Ordered 4 mg PO Q4H PRN Ondansetron [Zofran] Med 11/19/19 15:08 Ordered 4 mg IVPUSH Q4H PRN Sodium Chloride 0.45% 1,000 ml Med 11/19/19 15:15 Active IV ASDIRECTED Sodium Chloride 0.9% [Normal Saline] 250 ml Med 11/19/19 15:00 Active IV ASDIRECTED Sodium Chloride 0.9% [Saline Flush] Med 11/19/19 11:34 Active 10 ml FLUSH ASDIRECTED PRN Sodium Chloride 0.9% [Saline Flush] Med 11/19/19 11:34 Active 2.5 ml FLUSH ASDIRECTED PRN Blood Culture x2 Reflex Set [OM.PC] Stat Ot 11/19/19 13:20 Ordered Saline Lock Insert [OM.PC] Stat Ot 11/19/19 11:34 Ordered Resuscitation Status Routine Resus Stat 11/19/19 15:08 Ordered Medication Orders Acetaminophen (Tylenol) 650 mg PO Q4H PRN PRN Reason: Pain (Mild 1-3)/fever Enoxaparin Sodium (Lovenox) 40 mg SUBCUT Q24H LESLIE Insulin Human Regular 100 unit (/ Sodium Chloride) 100 mls @ 7 mls/hr IV TITRATE LESLIE; Protocol Last Admin: 11/19/19 14:32 Dose: 7 unit/hr, 7 mls/hr Documented by: EVARISTO Cosigned by: VICK Sodium Chloride (Normal Saline) 250 mls @ 100 mls/hr IV ASDIRECTED LESLIE Last Admin: 11/19/19 14:49 Dose: 100 mls/hr Documented by: EVARISTO Sodium Chloride (Sodium Chloride 0.45%) 1,000 mls @ 250 mls/hr IV ASDIRECTED LESLIE Ondansetron HCl (Zofran Odt) 4 mg PO Q4H PRN PRN Reason: nausea, able to take PO Ondansetron HCl (Zofran) 4 mg IVPUSH Q4H PRN PRN Reason: Nausea Sodium Chloride (Saline Flush) 2.5 ml FLUSH ASDIRECTED PRN PRN Reason: Keep Vein Open Sodium Chloride (Saline Flush) 10 ml FLUSH ASDIRECTED PRN PRN Reason: Keep Vein Open Assessment/Plan Comment:: Assessment and Plan: 1. Diabetic ketoacidosis: - Admit to ICU. Patient received 2 L bolus in ER. Will continue IV NS and insulin drip per DKA protocol. Replete electrolytes as required. Accucheks q1h. Will check BMP q4h. - Patient reports that her insulin pump detached this morning. 2. Chest pain, ACS rule out: - Patient on telemetry. Initial troponin negative. Trend troponins q6h. - CTA chest negative for PE or pneumonia. CXR showed left lower lobe at electasis. 3. DVT prophylaxis: Lovenox 40 mg subcut qd. 4. Past medical history of HTN, hypothyroidism and fibromyalgia: - Continue home medications.
[2019-11-19] MEDS ORDERED: NS + KCl 20mEq/L 1,000 ML IV SCH ×2 (15:45→17:30)
[2019-11-19] MEDS ORDERED: Alum Hydrox/Mag Hydrox/Simeth 15 ML, Lidocaine 2% 5 ML PO ONE ×2 (15:45)
[2019-11-19 16:04] LABS: CARBON DIOXIDE,CO2 10.9 mmol/L (21.0-32.0); POTASSIUM,K 5.4 mmol/L (3.5-5.1)
[2019-11-19] MEDS ORDERED: Sodium Chloride 0.9% 1,000 ML IV SCH (16:30)
--- NOTE | 2019-11-19 17:29 | PN ---
THC Physician - Brief Progress [id number]/31/2020 17:18[facility] Nixon Dill, SPIKE - NELY (ANGELA) - NELY ELIASGRACIELA JOHNSONRasheedDate of Service 11/19/2019 17:18HPI /Events of Note eICU admission [id number] female with past history of DM1, HTN and hypothyroidis m who presented to hospital with chest pain. Patient mentions over the last few days she has been machado ving left-sided chest pain which is burning and tight in nature with radiation to the left arm and ne ck. She did have associated nausea and vomiting. She had a similar episode of chest pain today whic h woke her up thus prompted her to come to the ED. In the ED patient was noted to be slightly tachyc ardic in the high 90s with otherwise stable vitals. Initial lab work-up revealed hyperglycemia, leuk ocytosis along with anion gap metabolic acidosis with pH of 7.29. Patient was given 2 L IV fluid and initiated on insulin gtt. admitted to the ICU for DKA.Patient sitting up in bed eating food and does not appear to be in any acute distress and conversing bedside team.Vital signs reviewedLabs/EMR revi ewedDKA-Agree with aggressive volume resuscitation -Recommend starting DKA protocol with IVF with K r eplacement along with Insulin gtt-Repeat Chem7, BHB and VBG every 4 hours-Agree with trending troponi ns given history of DM1 and chest painDVT prophy-LovenoxGI prophy-diet orderedThank you for allowing us to participate in the care of this patient.Interventions [id number]-[id number]-Exmt disturbance - evaluation and management, Hyperglycemia - active titration of insulin therapy
[2019-11-19] MEDS ORDERED: Lactated Ringers 500 ML IV ONE (18:20)
[2019-11-19 19:05] LABS: CARBON DIOXIDE,CO2 21.8 mmol/L (21.0-32.0); POTASSIUM,K 4.8 mmol/L (3.5-5.1)
--- NOTE | 2019-11-19 19:30 | PN ---
THC Physician - Brief Progress [id number]/31/2020 18:22[facility] Nixon Dill, SPIKE - NELY ([facility] - GRACIELA ORTEGADate of Service 11/19/2019 18:22HPI /Events of Note eICU update:Notified by bedside team regarding hypotension. BP 79/48 with patient fee ling slight lightheadedness. On camera patient was ambulating to bedside commode and ambulated back w ithout any issues. She denied any chest pain or Pre-syncope. Patient does take anti-hypternsvies but did not this AM.Plan:-500ml LR bolus -Will send VBG and Lactate -Continue IVF per DKA protocolInterve ntions Major-Hypotension - evaluation and management
[2019-11-19 21:47] LABS: BLOOD UREA NITROGEN,BUN 14 mg/dL (7.0-18.0); CARBON DIOXIDE,CO2 23.3 mmol/L (21.0-32.0); CHLORIDE,CL 101 mmol/L (98-107); GLUCOSE RANDOM 160 mg/dL (74-106); POTASSIUM,K 4.2 mmol/L (3.5-5.1); SODIUM,NA 133 mmol/L (136-145)
[2019-11-20 03:01] LABS: BLOOD UREA NITROGEN,BUN 12 mg/dL (7.0-18.0); CARBON DIOXIDE,CO2 23.6 mmol/L (21.0-32.0); CHLORIDE,CL 102 mmol/L (98-107); GLUCOSE RANDOM 145 mg/dL (74-106); SODIUM,NA 134 mmol/L (136-145)
[2019-11-20 07:06] LABS: BLOOD UREA NITROGEN,BUN 12 mg/dL (7.0-18.0); CARBON DIOXIDE,CO2 22.4 mmol/L (21.0-32.0); CHLORIDE,CL 102 mmol/L (98-107); GLUCOSE RANDOM 137 mg/dL (74-106); POTASSIUM,K 3.8 mmol/L (3.5-5.1); SODIUM,NA 134 mmol/L (136-145)
[2019-11-20] MEDS ORDERED: Levothyroxine 100 MCG Tab PO SCH ×2 (07:30→09:00)
[2019-11-20] MEDS ORDERED: Pramipexole 0.25 MG Tab PO SCH (09:00)
--- NOTE | 2019-11-20 09:16 | PN ---
THC Physician - Brief Progress [id number]/01/2020 09:14[facility] Nixon Dill [place] - NELY ([facility] - GRACIELA ORTEGADate of Service 11/20/2019 09:14HPI /Events of Note eICU Progress [id number] admitted for DKA. History obtained primarily from review of EMR .Camera exam: Laying in bed. Vitals monitor reviewed.Labs: reviewedRadiology: reviewedeICU Impression and Recommendations:Diabetic ketoacidosis, resolved, presumed etiology is detachment of insulin pump Anion gap closedRecommend transition from continuous IV insulin to subcutaneous insulin. Can approach this in several ways, if confident that detached insulin pump (rather than device failure or inadequ ate insulin) is etiology of DKA, resuming insulin pump is a reasonable approach. Otherwise can consid er initiation of intermittent long acting subcutaneous insulinDiabetes education per institutional pr otocolOn discharge recommend close follow up with PCPDVT and GI prophylaxis as appropriate.Thank you for allowing us to participate in the care of this patient.The above note transcribed with the assist ance of dictation software. Please excuse any errors.Interventions Major-Hyperglycemia - active titra tion of insulin therapy
[2019-11-20 11:13] VITALS: BP 110/79
--- NOTE | 2019-11-20 12:49 | PCM.DCSUM1 ---
<Rommel Thomas - Last Filed: 11/20/19 12:49> Discharge Summary - Hospital Course Free Text/Narrative:: 44-year-old female admitted for chest pain and diabetic ketoacidosis. She has a PMH of type 1 DM, HTN, hypothyroidism and fibromyalgia. Patient reported that her insulin pump became detached earlier on the day of admission. Patient kept on telemetry with no reported events. Troponins were trended and were negative. CTA chest negative for pulmonary embolism. For her DKA, she was treated with IV fluids, started on insulin drip and electrolytes were repleted as required. She was successfully transitioned to her insulin pump once DKA resolved. Patient noted to have low blood pressure's during her stay. On discharge, she was advised to hold verapamil, amlodipine and lasix. Advised to monitor her blood pressures at home and if they are elevated then resume verapamil. She has a fol low-up appointment in clinic next week with PCP. - Discharge Data Discharge Date: 11/20/19 Discharge Disposition: Home, Self-Care 01 Condition: Fair - Referral to Home Health Primary Care Physician: Augustine Hou MD - Patient Instructions Diet: Diabetic Diet Activity: As Tolerated Notify Provider of: Fever, Increased Pain, Swelling and Redness, Drainage, Nausea and/or Vomiting - Discharge Plan *PRESCRIPTION DRUG MONITORING PROGRAM REVIEWED*: Not Applicable *COPY OF PRESCRIPTION DRUG MONITORING REPORT IN PATIENT AKIRA: Not Applicable Prescriptions/Med Rec: lisinopriL [Lisinopril] 10 mg PO DAILY 30 Days #30 tablet Home Medications: Home Meds ALPRAZolam [ALPRAZolam ER] 0.5 - 1 mg PO DAILY PRN 09/29/13 [History] Clobetasol [Clobetasol Propionate 0.05%] 15 gm TOP BID PRN 09/29/13 [History] Levothyroxine 100 mcg PO QAM 09/29/13 [History] Insulin Aspart [NovoLOG] 40 unit IMPLANT DAILY 01/19/15 [History] Pramipexole [Mirapex] 0.125 mg PO BEDTIME 01/25/19 [History] Acetaminophen/HYDROcodone [[place] 325-5 MG] 1 tab PO ASDIRECTED 11/13/19 [History] clonazePAM [Clonazepam] 1 mg PO DAILY PRN 11/13/19 [History] Fluticasone Propionate [Flonase Allergy Relief] 1 spray NS DAILY PRN 11/19/19 [History] Lactobacillus Acidophilus [Probiotic] 1 cap PO DAILY 11/19/19 [History] lisinopriL [Lisinopril] 10 mg PO DAILY 30 Days #30 tablet 11/20/19 [Rx] Oxygen Therapy Mode: Room Air Patient Handouts: Diabetic Ketoacidosis, Nonspecific Chest Pain, Adult, [id number] Forms: ED Department Discharge Referrals: Augustine Hou MD [Primary Care Provider] - - Discharge Summary/Plan Comment DC Time >30 min.: No - Patient Data Vitals - Most Recent: Last Vital Signs Temp 35.9 C L 11/20/19 08:00 Pulse 96 11/19/19 14:47 Resp 11 L 11/20/19 10:00 BP 110/79 11/20/19 10:00 Pulse Ox 99 11/20/19 10:00 Weight - Most Recent: 78.3 kg I&O - Last 24 hours: Intake & Output 11/19/19 11/20/19 11/20/19 22:59 06:59 14:59 Intake Total 804 850 250 Output Total 1050 300 Balance 804 -200 -50 Lab Results - Last 24 hrs: Laboratory Results - last 24 hr 11/19/19 11/19/19 11/19/19 Range/Units 11:30 11:30 11:30 WBC (4.0-11.0) K/uL RBC (4.30-5.90) M/uL Hgb (12.0-16.0) g/dL Hct (36.0-46.0) % MCV (80.0-98.0) fL MCH (27.0-32.0) pg MCHC (31.0-37.0) g/dL RDW Std Deviation (28.0-62.0) fl RDW Coeff of Juan (11.0-15.0) % Plt Count (150-400) K/uL MPV (7.40-12.00) fL Neut % (Auto) (48.0-80.0) % Lymph % (Auto) (16.0-40.0) % [place] % (Auto) (0.0-15.0) % Eos % (Auto) (0.0-7.0) % Baso % (Auto) (0.0-1.5) % Neut # (Auto) (1.4-5.7) K/uL Lymph # (Auto) (0.6-2.4) K/uL [place] # (Auto) (0.0-0.8) K/uL Eos # (Auto) (0.0-0.7) K/uL Baso # (Auto) (0.0-0.1) K/uL Nucleated RBC % /100WBC Nucleated RBCs # K/uL VBG pH 7.29 L (7.31-7.41) VBG pCO2 26 L (35-45) mmHG VBG pO2 75 H (30-40) mmHG VBG HCO3 13 L (22-30) mEq/L VBG Total CO2 11 L (41-51) mmol/L VBG Base Excess -11.9 L (-3.0-3.0) Lactate (0.20-2.00) mmol/L Sodium (136-145) mmol/L Potassium (3.5-5.1) mmol/L Chloride (98-107) mmol/L Carbon Dioxide (21.0-32.0) mmol/L BUN (7.0-18.0) mg/dL Creatinine (0.6-1.0) mg/dL Est Cr Clr Drug Dosing mL/min Estimated GFR (MDRD) ml/min Glucose (74-106) mg/dL POC Glucose (60-110) mg/dL Calcium (8.5-10.1) mg/dL Phosphorus 4.5 (2.6-4.7) mg/dL Magnesium 1.9 (1.8-2.4) mg/dL Troponin I (0.000-0.056) ng/mL Urine Color Urine Appearance Urine pH (5.0-8.0) Ur Specific [place] (1.001-1.035) Urine Protein (NEGATIVE) mg/dL Urine Glucose (UA) (NEGATIVE) mg/dL Urine Ketones (NEGATIVE) mg/dL Urine Occult Blood (NEGATIVE) Urine Nitrite (NEGATIVE) Urine Bilirubin (NEGATIVE) Urine Urobilinogen (<2.0) EU/dL Ur Leukocyte Esterase (NEGATIVE) Urine RBC (0-2/HPF) Urine WBC (0-5/HPF) Ur Squamous Epith Cells Urine Bacteria (NEGATIVE) Urine Yeast Ketones MODERATE H (NEG) COVID-19 (ADAM) (NEGATIVE) 11/19/19 11/19/19 11/19/19 Range/Units 12:55 14:31 14:33 WBC (4.0-11.0) K/uL RBC (4.30-5.90) M/uL Hgb (12.0-16.0) g/dL Hct (36.0-46.0) % MCV (80.0-98.0) fL MCH (27.0-32.0) pg MCHC (31.0-37.0) g/dL RDW Std Deviation (28.0-62.0) fl RDW Coeff of Juan (11.0-15.0) % Plt Count (150-400) K/uL MPV (7.40-12.00) fL Neut % (Auto) (48.0-80.0) % Lymph % (Auto) (16.0-40.0) % [place] % (Auto) (0.0-15.0) % Eos % (Auto) (0.0-7.0) % Baso % (Auto) (0.0-1.5) % Neut # (Auto) (1.4-5.7) K/uL Lymph # (Auto) (0.6-2.4) K/uL [place] # (Auto) (0.0-0.8) K/uL Eos # (Auto) (0.0-0.7) K/uL Baso # (Auto) (0.0-0.1) K/uL Nucleated RBC % /100WBC Nucleated RBCs # K/uL VBG pH (7.31-7.41) VBG pCO2 (35-45) mmHG VBG pO2 (30-40) mmHG VBG HCO3 (22-30) mEq/L VBG Total CO2 (41-51) mmol/L VBG Base Excess (-3.0-3.0) Lactate (0.20-2.00) mmol/L Sodium (136-145) mmol/L Potassium (3.5-5.1) mmol/L Chloride (98-107) mmol/L Carbon Dioxide (21.0-32.0) mmol/L BUN (7.0-18.0) mg/dL Creatinine (0.6-1.0) mg/dL Est Cr Clr Drug Dosing mL/min Estimated GFR (MDRD) ml/min Glucose (74-106) mg/dL POC Glucose 408 H (60-110) mg/dL Calcium (8.5-10.1) mg/dL Phosphorus (2.6-4.7) mg/dL Magnesium (1.8-2.4) mg/dL Troponin I (0.000-0.056) ng/mL Urine Color YELLOW Urine Appearance CLEAR Urine pH 5.5 (5.0-8.0) Ur Specific [place] 1.025 (1.001-1.035) Urine Protein TRACE H (NEGATIVE) mg/dL Urine Glucose (UA) >=1000 (NEGATIVE) mg/dL Urine Ketones >=80 (NEGATIVE) mg/dL Urine Occult Blood NEGATIVE (NEGATIVE) Urine Nitrite NEGATIVE (NEGATIVE) Urine Bilirubin NEGATIVE (NEGATIVE) Urine Urobilinogen 0.2 (<2.0) EU/dL Ur Leukocyte Esterase NEGATIVE (NEGATIVE) Urine RBC NONE SEEN (0-2/HPF) Urine WBC NONE SEEN (0-5/HPF) Ur Squamous Epith Cells RARE Urine Bacteria NOT SEEN (NEGATIVE) Urine Yeast FEW Ketones (NEG) COVID-19 (ADAM) NEGATIVE (NEGATIVE) 11/19/19 11/19/19 11/19/19 Range/Units 14:47 14:47 15:48 WBC (4.0-11.0) K/uL RBC (4.30-5.90) M/uL Hgb (12.0-16.0) g/dL Hct (36.0-46.0) % MCV (80.0-98.0) fL MCH (27.0-32.0) pg MCHC (31.0-37.0) g/dL RDW Std Deviation (28.0-62.0) fl RDW Coeff of Juan (11.0-15.0) % Plt Count (150-400) K/uL MPV (7.40-12.00) fL Neut % (Auto) (48.0-80.0) % Lymph % (Auto) (16.0-40.0) % [place] % (Auto) (0.0-15.0) % Eos % (Auto) (0.0-7.0) % Baso % (Auto) (0.0-1.5) % Neut # (Auto) (1.4-5.7) K/uL Lymph # (Auto) (0.6-2.4) K/uL [place] # (Auto) (0.0-0.8) K/uL Eos # (Auto) (0.0-0.7) K/uL Baso # (Auto) (0.0-0.1) K/uL Nucleated RBC % /100WBC Nucleated RBCs # K/uL VBG pH (7.31-7.41) VBG pCO2 (35-45) mmHG VBG pO2 (30-40) mmHG VBG HCO3 (22-30) mEq/L VBG Total CO2 (41-51) mmol/L VBG Base Excess (-3.0-3.0) Lactate (0.20-2.00) mmol/L Sodium 129 L (136-145) mmol/L Potassium 5.4 H (3.5-5.1) mmol/L Chloride 95 L (98-107) mmol/L Carbon Dioxide 10.9 L (21.0-32.0) mmol/L BUN 17 (7.0-18.0) mg/dL Creatinine 1.1 H (0.6-1.0) mg/dL Est Cr Clr Drug Dosing 56.36 mL/min Estimated GFR (MDRD) 54.0 ml/min Glucose 381 H (74-106) mg/dL POC Glucose 283 H (60-110) mg/dL Calcium 8.3 L (8.5-10.1) mg/dL Phosphorus (2.6-4.7) mg/dL Magnesium (1.8-2.4) mg/dL Troponin I < 0.050 (0.000-0.056) ng/mL Urine Color Urine Appearance Urine pH (5.0-8.0) Ur Specific [place] (1.001-1.035) Urine Protein (NEGATIVE) mg/dL Urine Glucose (UA) (NEGATIVE) mg/dL Urine Ketones (NEGATIVE) mg/dL Urine Occult Blood (NEGATIVE) Urine Nitrite (NEGATIVE) Urine Bilirubin (NEGATIVE) Urine Urobilinogen (<2.0) EU/dL Ur Leukocyte Esterase (NEGATIVE) Urine RBC (0-2/HPF) Urine WBC (0-5/HPF) Ur Squamous Epith Cells Urine Bacteria (NEGATIVE) Urine Yeast Ketones (NEG) COVID-19 (ADAM) (NEGATIVE) 11/19/19 11/19/19 11/19/19 Range/Units 16:36 16:52 17:33 WBC (4.0-11.0) K/uL RBC (4.30-5.90) M/uL Hgb (12.0-16.0) g/dL Hct (36.0-46.0) % MCV (80.0-98.0) fL MCH (27.0-32.0) pg MCHC (31.0-37.0) g/dL RDW Std Deviation (28.0-62.0) fl RDW Coeff of Juan (11.0-15.0) % Plt Count (150-400) K/uL MPV (7.40-12.00) fL Neut % (Auto) (48.0-80.0) % Lymph % (Auto) (16.0-40.0) % [place] % (Auto) (0.0-15.0) % Eos % (Auto) (0.0-7.0) % Baso % (Auto) (0.0-1.5) % Neut # (Auto) (1.4-5.7) K/uL Lymph # (Auto) (0.6-2.4) K/uL [place] # (Auto) (0.0-0.8) K/uL Eos # (Auto) (0.0-0.7) K/uL Baso # (Auto) (0.0-0.1) K/uL Nucleated RBC % /100WBC Nucleated RBCs # K/uL VBG pH (7.31-7.41) VBG pCO2 (35-45) mmHG VBG pO2 (30-40) mmHG VBG HCO3 (22-30) mEq/L VBG Total CO2 (41-51) mmol/L VBG Base Excess (-3.0-3.0) Lactate (0.20-2.00) mmol/L Sodium (136-145) mmol/L Potassium 4.3 (3.5-5.1) mmol/L Chloride (98-107) mmol/L Carbon Dioxide (21.0-32.0) mmol/L BUN (7.0-18.0) mg/dL Creatinine (0.6-1.0) mg/dL Est Cr Clr Drug Dosing mL/min Estimated GFR (MDRD) ml/min Glucose (74-106) mg/dL POC Glucose 248 H 228 H (60-110) mg/dL Calcium (8.5-10.1) mg/dL Phosphorus (2.6-4.7) mg/dL Magnesium (1.8-2.4) mg/dL Troponin I (0.000-0.056) ng/mL Urine Color Urine Appearance Urine pH (5.0-8.0) Ur Specific [place] (1.001-1.035) Urine Protein (NEGATIVE) mg/dL Urine Glucose (UA) (NEGATIVE) mg/dL Urine Ketones (NEGATIVE) mg/dL Urine Occult Blood (NEGATIVE) Urine Nitrite (NEGATIVE) Urine Bilirubin (NEGATIVE) Urine Urobilinogen (<2.0) EU/dL Ur Leukocyte Esterase (NEGATIVE) Urine RBC (0-2/HPF) Urine WBC (0-5/HPF) Ur Squamous Epith Cells Urine Bacteria (NEGATIVE) Urine Yeast Ketones (NEG) COVID-19 (ADAM) (NEGATIVE) 11/19/19 11/19/19 11/19/19 Range/Units 18:35 18:36 18:36 WBC (4.0-11.0) K/uL RBC (4.30-5.90) M/uL Hgb (12.0-16.0) g/dL Hct (36.0-46.0) % MCV (80.0-98.0) fL MCH (27.0-32.0) pg MCHC (31.0-37.0) g/dL RDW Std Deviation (28.0-62.0) fl RDW Coeff of Juan (11.0-15.0) % Plt Count (150-400) K/uL MPV (7.40-12.00) fL Neut % (Auto) (48.0-80.0) % Lymph % (Auto) (16.0-40.0) % [place] % (Auto) (0.0-15.0) % Eos % (Auto) (0.0-7.0) % Baso % (Auto) (0.0-1.5) % Neut # (Auto) (1.4-5.7) K/uL Lymph # (Auto) (0.6-2.4) K/uL [place] # (Auto) (0.0-0.8) K/uL Eos # (Auto) (0.0-0.7) K/uL Baso # (Auto) (0.0-0.1) K/uL Nucleated RBC % /100WBC Nucleated RBCs # K/uL VBG pH 7.34 (7.31-7.41) VBG pCO2 36 (35-45) mmHG VBG pO2 34 (30-40) mmHG VBG HCO3 19 L (22-30) mEq/L VBG Total CO2 18 L (41-51) mmol/L VBG Base Excess -6.0 L (-3.0-3.0) Lactate (0.20-2.00) mmol/L Sodium 131 L (136-145) mmol/L Potassium 4.8 (3.5-5.1) mmol/L Chloride 98 (98-107) mmol/L Carbon Dioxide 21.8 (21.0-32.0) mmol/L BUN 16 (7.0-18.0) mg/dL Creatinine 1.2 H (0.6-1.0) mg/dL Est Cr Clr Drug Dosing 51.66 mL/min Estimated GFR (MDRD) 48.8 ml/min Glucose 244 H (74-106) mg/dL POC Glucose 242 H (60-110) mg/dL Calcium 7.9 L (8.5-10.1) mg/dL Phosphorus (2.6-4.7) mg/dL Magnesium (1.8-2.4) mg/dL Troponin I (0.000-0.056) ng/mL Urine Color Urine Appearance Urine pH (5.0-8.0) Ur Specific [place] (1.001-1.035) Urine Protein (NEGATIVE) mg/dL Urine Glucose (UA) (NEGATIVE) mg/dL Urine Ketones (NEGATIVE) mg/dL Urine Occult Blood (NEGATIVE) Urine Nitrite (NEGATIVE) Urine Bilirubin (NEGATIVE) Urine Urobilinogen (<2.0) EU/dL Ur Leukocyte Esterase (NEGATIVE) Urine RBC (0-2/HPF) Urine WBC (0-5/HPF) Ur Squamous Epith Cells Urine Bacteria (NEGATIVE) Urine Yeast Ketones (NEG) COVID-19 (ADAM) (NEGATIVE) 11/19/19 11/19/19 11/19/19 Range/Units 18:36 19:36 20:05 WBC (4.0-11.0) K/uL RBC (4.30-5.90) M/uL Hgb (12.0-16.0) g/dL Hct (36.0-46.0) % MCV (80.0-98.0) fL MCH (27.0-32.0) pg MCHC (31.0-37.0) g/dL RDW Std Deviation (28.0-62.0) fl RDW Coeff of Juan (11.0-15.0) % Plt Count (150-400) K/uL MPV (7.40-12.00) fL Neut % (Auto) (48.0-80.0) % Lymph % (Auto) (16.0-40.0) % [place] % (Auto) (0.0-15.0) % Eos % (Auto) (0.0-7.0) % Baso % (Auto) (0.0-1.5) % Neut # (Auto) (1.4-5.7) K/uL Lymph # (Auto) (0.6-2.4) K/uL [place] # (Auto) (0.0-0.8) K/uL Eos # (Auto) (0.0-0.7) K/uL Baso # (Auto) (0.0-0.1) K/uL Nucleated RBC % /100WBC Nucleated RBCs # K/uL VBG pH (7.31-7.41) VBG pCO2 (35-45) mmHG VBG pO2 (30-40) mmHG VBG HCO3 (22-30) mEq/L VBG Total CO2 (41-51) mmol/L VBG Base Excess (-3.0-3.0) Lactate 1.9 (0.20-2.00) mmol/L Sodium (136-145) mmol/L Potassium (3.5-5.1) mmol/L Chloride (98-107) mmol/L Carbon Dioxide (21.0-32.0) mmol/L BUN (7.0-18.0) mg/dL Creatinine (0.6-1.0) mg/dL Est Cr Clr Drug Dosing mL/min Estimated GFR (MDRD) ml/min Glucose (74-106) mg/dL POC Glucose 221 H 201 H (60-110) mg/dL Calcium (8.5-10.1) mg/dL Phosphorus (2.6-4.7) mg/dL Magnesium (1.8-2.4) mg/dL Troponin I (0.000-0.056) ng/mL Urine Color Urine Appearance Urine pH (5.0-8.0) Ur Specific [place] (1.001-1.035) Urine Protein (NEGATIVE) mg/dL Urine Glucose (UA) (NEGATIVE) mg/dL Urine Ketones (NEGATIVE) mg/dL Urine Occult Blood (NEGATIVE) Urine Nitrite (NEGATIVE) Urine Bilirubin (NEGATIVE) Urine Urobilinogen (<2.0) EU/dL Ur Leukocyte Esterase (NEGATIVE) Urine RBC (0-2/HPF) Urine WBC (0-5/HPF) Ur Squamous Epith Cells Urine Bacteria (NEGATIVE) Urine Yeast Ketones (NEG) COVID-19 (ADAM) (NEGATIVE) 11/19/19 11/19/19 11/19/19 Range/Units 20:14 21:01 21:22 WBC (4.0-11.0) K/uL RBC (4.30-5.90) M/uL Hgb (12.0-16.0) g/dL Hct (36.0-46.0) % MCV (80.0-98.0) fL MCH (27.0-32.0) pg MCHC (31.0-37.0) g/dL RDW Std Deviation (28.0-62.0) fl RDW Coeff of Juan (11.0-15.0) % Plt Count (150-400) K/uL MPV (7.40-12.00) fL Neut % (Auto) (48.0-80.0) % Lymph % (Auto) (16.0-40.0) % [place] % (Auto) (0.0-15.0) % Eos % (Auto) (0.0-7.0) % Baso % (Auto) (0.0-1.5) % Neut # (Auto) (1.4-5.7) K/uL Lymph # (Auto) (0.6-2.4) K/uL [place] # (Auto) (0.0-0.8) K/uL Eos # (Auto) (0.0-0.7) K/uL Baso # (Auto) (0.0-0.1) K/uL Nucleated RBC % /100WBC Nucleated RBCs # K/uL VBG pH (7.31-7.41) VBG pCO2 (35-45) mmHG VBG pO2 (30-40) mmHG VBG HCO3 (22-30) mEq/L VBG Total CO2 (41-51) mmol/L VBG Base Excess (-3.0-3.0) Lactate (0.20-2.00) mmol/L Sodium 133 L (136-145) mmol/L Potassium 4.2 (3.5-5.1) mmol/L Chloride 101 (98-107) mmol/L Carbon Dioxide 23.3 (21.0-32.0) mmol/L BUN 14 (7.0-18.0) mg/dL Creatinine 1.0 (0.6-1.0) mg/dL Est Cr Clr Drug Dosing 61.99 mL/min Estimated GFR (MDRD) > 60.0 ml/min Glucose 160 H (74-106) mg/dL POC Glucose 168 H (60-110) mg/dL Calcium 7.6 L (8.5-10.1) mg/dL Phosphorus (2.6-4.7) mg/dL Magnesium (1.8-2.4) mg/dL Troponin I < 0.050 (0.000-0.056) ng/mL Urine Color Urine Appearance Urine pH (5.0-8.0) Ur Specific [place] (1.001-1.035) Urine Protein (NEGATIVE) mg/dL Urine Glucose (UA) (NEGATIVE) mg/dL Urine Ketones (NEGATIVE) mg/dL Urine Occult Blood (NEGATIVE) Urine Nitrite (NEGATIVE) Urine Bilirubin (NEGATIVE) Urine Urobilinogen (<2.0) EU/dL Ur Leukocyte Esterase (NEGATIVE) Urine RBC (0-2/HPF) Urine WBC (0-5/HPF) Ur Squamous Epith Cells Urine Bacteria (NEGATIVE) Urine Yeast Ketones (NEG) COVID-19 (ADAM) (NEGATIVE) 11/19/19 11/19/19 11/20/19 Range/Units 22:03 23:16 00:07 WBC (4.0-11.0) K/uL RBC (4.30-5.90) M/uL Hgb (12.0-16.0) g/dL Hct (36.0-46.0) % MCV (80.0-98.0) fL MCH (27.0-32.0) pg MCHC (31.0-37.0) g/dL RDW Std Deviation (28.0-62.0) fl RDW Coeff of Juan (11.0-15.0) % Plt Count (150-400) K/uL MPV (7.40-12.00) fL Neut % (Auto) (48.0-80.0) % Lymph % (Auto) (16.0-40.0) % [place] % (Auto) (0.0-15.0) % Eos % (Auto) (0.0-7.0) % Baso % (Auto) (0.0-1.5) % Neut # (Auto) (1.4-5.7) K/uL Lymph # (Auto) (0.6-2.4) K/uL [place] # (Auto) (0.0-0.8) K/uL Eos # (Auto) (0.0-0.7) K/uL Baso # (Auto) (0.0-0.1) K/uL Nucleated RBC % /100WBC Nucleated RBCs # K/uL VBG pH (7.31-7.41) VBG pCO2 (35-45) mmHG VBG pO2 (30-40) mmHG VBG HCO3 (22-30) mEq/L VBG Total CO2 (41-51) mmol/L VBG Base Excess (-3.0-3.0) Lactate (0.20-2.00) mmol/L Sodium (136-145) mmol/L Potassium (3.5-5.1) mmol/L Chloride (98-107) mmol/L Carbon Dioxide (21.0-32.0) mmol/L BUN (7.0-18.0) mg/dL Creatinine (0.6-1.0) mg/dL Est Cr Clr Drug Dosing mL/min Estimated GFR (MDRD) ml/min Glucose (74-106) mg/dL POC Glucose 134 H 159 H 163 H (60-110) mg/dL Calcium (8.5-10.1) mg/dL Phosphorus (2.6-4.7) mg/dL Magnesium (1.8-2.4) mg/dL Troponin I (0.000-0.056) ng/mL Urine Color Urine Appearance Urine pH (5.0-8.0) Ur Specific [place] (1.001-1.035) Urine Protein (NEGATIVE) mg/dL Urine Glucose (UA) (NEGATIVE) mg/dL Urine Ketones (NEGATIVE) mg/dL Urine Occult Blood (NEGATIVE) Urine Nitrite (NEGATIVE) Urine Bilirubin (NEGATIVE) Urine Urobilinogen (<2.0) EU/dL Ur Leukocyte Esterase (NEGATIVE) Urine RBC (0-2/HPF) Urine WBC (0-5/HPF) Ur Squamous Epith Cells Urine Bacteria (NEGATIVE) Urine Yeast Ketones (NEG) COVID-19 (ADAM) (NEGATIVE) 11/20/19 11/20/19 11/20/19 Range/Units 01:02 02:03 02:30 WBC (4.0-11.0) K/uL RBC (4.30-5.90) M/uL Hgb (12.0-16.0) g/dL Hct (36.0-46.0) % MCV (80.0-98.0) fL MCH (27.0-32.0) pg MCHC (31.0-37.0) g/dL RDW Std Deviation (28.0-62.0) fl RDW Coeff of Juan (11.0-15.0) % Plt Count (150-400) K/uL MPV (7.40-12.00) fL Neut % (Auto) (48.0-80.0) % Lymph % (Auto) (16.0-40.0) % [place] % (Auto) (0.0-15.0) % Eos % (Auto) (0.0-7.0) % Baso % (Auto) (0.0-1.5) % Neut # (Auto) (1.4-5.7) K/uL Lymph # (Auto) (0.6-2.4) K/uL [place] # (Auto) (0.0-0.8) K/uL Eos # (Auto) (0.0-0.7) K/uL Baso # (Auto) (0.0-0.1) K/uL Nucleated RBC % /100WBC Nucleated RBCs # K/uL VBG pH (7.31-7.41) VBG pCO2 (35-45) mmHG VBG pO2 (30-40) mmHG VBG HCO3 (22-30) mEq/L VBG Total CO2 (41-51) mmol/L VBG Base Excess (-3.0-3.0) Lactate (0.20-2.00) mmol/L Sodium 134 L (136-145) mmol/L Potassium 4.0 (3.5-5.1) mmol/L Chloride 102 (98-107) mmol/L Carbon Dioxide 23.6 (21.0-32.0) mmol/L BUN 12 (7.0-18.0) mg/dL Creatinine 0.8 (0.6-1.0) mg/dL Est Cr Clr Drug Dosing 77.49 mL/min Estimated GFR (MDRD) > 60.0 ml/min Glucose 145 H (74-106) mg/dL POC Glucose 154 H 140 H (60-110) mg/dL Calcium 7.5 L (8.5-10.1) mg/dL Phosphorus (2.6-4.7) mg/dL Magnesium (1.8-2.4) mg/dL Troponin I < 0.050 (0.000-0.056) ng/mL Urine Color Urine Appearance Urine pH (5.0-8.0) Ur Specific [place] (1.001-1.035) Urine Protein (NEGATIVE) mg/dL Urine Glucose (UA) (NEGATIVE) mg/dL Urine Ketones (NEGATIVE) mg/dL Urine Occult Blood (NEGATIVE) Urine Nitrite (NEGATIVE) Urine Bilirubin (NEGATIVE) Urine Urobilinogen (<2.0) EU/dL Ur Leukocyte Esterase (NEGATIVE) Urine RBC (0-2/HPF) Urine WBC (0-5/HPF) Ur Squamous Epith Cells Urine Bacteria (NEGATIVE) Urine Yeast Ketones (NEG) COVID-19 (ADAM) (NEGATIVE) 11/20/19 11/20/19 11/20/19 Range/Units 04:15 06:06 06:36 WBC 6.95 (4.0-11.0) K/uL RBC 3.68 L (4.30-5.90) M/uL Hgb 12.5 (12.0-16.0) g/dL Hct 37.2 (36.0-46.0) % MCV 101.1 H (80.0-98.0) fL MCH 34.0 H (27.0-32.0) pg MCHC 33.6 (31.0-37.0) g/dL RDW Std Deviation 45.8 (28.0-62.0) fl RDW Coeff of Juan 13 (11.0-15.0) % Plt Count 172 (150-400) K/uL MPV 10.20 (7.40-12.00) fL Neut % (Auto) 64.2 (48.0-80.0) % Lymph % (Auto) 26.2 (16.0-40.0) % [place] % (Auto) 7.6 (0.0-15.0) % Eos % (Auto) 1.7 (0.0-7.0) % Baso % (Auto) 0.3 (0.0-1.5) % Neut # (Auto) 4.5 (1.4-5.7) K/uL Lymph # (Auto) 1.8 (0.6-2.4) K/uL [place] # (Auto) 0.5 (0.0-0.8) K/uL Eos # (Auto) 0.1 (0.0-0.7) K/uL Baso # (Auto) 0.0 (0.0-0.1) K/uL Nucleated RBC % 0.0 /100WBC Nucleated RBCs # 0 K/uL VBG pH (7.31-7.41) VBG pCO2 (35-45) mmHG VBG pO2 (30-40) mmHG VBG HCO3 (22-30) mEq/L VBG Total CO2 (41-51) mmol/L VBG Base Excess (-3.0-3.0) Lactate (0.20-2.00) mmol/L Sodium (136-145) mmol/L Potassium (3.5-5.1) mmol/L Chloride (98-107) mmol/L Carbon Dioxide (21.0-32.0) mmol/L BUN (7.0-18.0) mg/dL Creatinine (0.6-1.0) mg/dL Est Cr Clr Drug Dosing mL/min Estimated GFR (MDRD) ml/min Glucose (74-106) mg/dL POC Glucose 145 H 123 H (60-110) mg/dL Calcium (8.5-10.1) mg/dL Phosphorus (2.6-4.7) mg/dL Magnesium (1.8-2.4) mg/dL Troponin I (0.000-0.056) ng/mL Urine Color Urine Appearance Urine pH (5.0-8.0) Ur Specific [place] (1.001-1.035) Urine Protein (NEGATIVE) mg/dL Urine Glucose (UA) (NEGATIVE) mg/dL Urine Ketones (NEGATIVE) mg/dL Urine Occult Blood (NEGATIVE) Urine Nitrite (NEGATIVE) Urine Bilirubin (NEGATIVE) Urine Urobilinogen (<2.0) EU/dL Ur Leukocyte Esterase (NEGATIVE) Urine RBC (0-2/HPF) Urine WBC (0-5/HPF) Ur Squamous Epith Cells Urine Bacteria (NEGATIVE) Urine Yeast Ketones (NEG) COVID-19 (AD[facility]) (NEGATIVE) 11/20/19 11/20/19 11/20/19 Range/Units 06:36 07:39 08:50 WBC (4.0-11.0) K/uL RBC (4.30-5.90) M/uL Hgb (12.0-16.0) g/dL Hct (36.0-46.0) % MCV (80.0-98.0) fL MCH (27.0-32.0) pg MCHC (31.0-37.0) g/dL RDW Std Deviation (28.0-62.0) fl RDW Coeff of Juan (11.0-15.0) % Plt Count (150-400) K/uL MPV (7.40-12.00) fL Neut % (Auto) (48.0-80.0) % Lymph % (Auto) (16.0-40.0) % [place] % (Auto) (0.0-15.0) % Eos % (Auto) (0.0-7.0) % Baso % (Auto) (0.0-1.5) % Neut # (Auto) (1.4-5.7) K/uL Lymph # (Auto) (0.6-2.4) K/uL [place] # (Auto) (0.0-0.8) K/uL Eos # (Auto) (0.0-0.7) K/uL Baso # (Auto) (0.0-0.1) K/uL Nucleated RBC % /100WBC Nucleated RBCs # K/uL VBG pH (7.31-7.41) VBG pCO2 (35-45) mmHG VBG pO2 (30-40) mmHG VBG HCO3 (22-30) mEq/L VBG Total CO2 (41-51) mmol/L VBG Base Excess (-3.0-3.0) Lactate (0.20-2.00) mmol/L Sodium 134 L (136-145) mmol/L Potassium 3.8 (3.5-5.1) mmol/L Chloride 102 (98-107) mmol/L Carbon Dioxide 22.4 (21.0-32.0) mmol/L BUN 12 (7.0-18.0) mg/dL Creatinine 0.7 (0.6-1.0) mg/dL Est Cr Clr Drug Dosing 88.56 mL/min Estimated GFR (MDRD) > 60.0 ml/min Glucose 137 H (74-106) mg/dL POC Glucose 169 H 188 H (60-110) mg/dL Calcium 7.6 L (8.5-10.1) mg/dL Phosphorus (2.6-4.7) mg/dL Magnesium (1.8-2.4) mg/dL Troponin I (0.000-0.056) ng/mL Urine Color Urine Appearance Urine pH (5.0-8.0) Ur Specific [place] (1.001-1.035) Urine Protein (NEGATIVE) mg/dL Urine Glucose (UA) (NEGATIVE) mg/dL Urine Ketones (NEGATIVE) mg/dL Urine Occult Blood (NEGATIVE) Urine Nitrite (NEGATIVE) Urine Bilirubin (NEGATIVE) Urine Urobilinogen (<2.0) EU/dL Ur Leukocyte Esterase (NEGATIVE) Urine RBC (0-2/HPF) Urine WBC (0-5/HPF) Ur Squamous Epith Cells Urine Bacteria (NEGATIVE) Urine Yeast Ketones (NEG) COVID-19 (AD[facility]) (NEGATIVE) 11/20/19 Range/Units 10:01 WBC (4.0-11.0) K/uL RBC (4.30-5.90) M/uL Hgb (12.0-16.0) g/dL Hct (36.0-46.0) % MCV (80.0-98.0) fL MCH (27.0-32.0) pg MCHC (31.0-37.0) g/dL RDW Std Deviation (28.0-62.0) fl RDW Coeff of Juan (11.0-15.0) % Plt Count (150-400) K/uL MPV (7.40-12.00) fL Neut % (Auto) (48.0-80.0) % Lymph % (Auto) (16.0-40.0) % [place] % (Auto) (0.0-15.0) % Eos % (Auto) (0.0-7.0) % Baso % (Auto) (0.0-1.5) % Neut # (Auto) (1.4-5.7) K/uL Lymph # (Auto) (0.6-2.4) K/uL [place] # (Auto) (0.0-0.8) K/uL Eos # (Auto) (0.0-0.7) K/uL Baso # (Auto) (0.0-0.1) K/uL Nucleated RBC % /100WBC Nucleated RBCs # K/uL VBG pH (7.31-7.41) VBG pCO2 (35-45) mmHG VBG pO2 (30-40) mmHG VBG HCO3 (22-30) mEq/L VBG Total CO2 (41-51) mmol/L VBG Base Excess (-3.0-3.0) Lactate (0.20-2.00) mmol/L Sodium (136-145) mmol/L Potassium (3.5-5.1) mmol/L Chloride (98-107) mmol/L Carbon Dioxide (21.0-32.0) mmol/L BUN (7.0-18.0) mg/dL Creatinine (0.6-1.0) mg/dL Est Cr Clr Drug Dosing mL/min Estimated GFR (MDRD) ml/min Glucose (74-106) mg/dL POC Glucose 180 H (60-110) mg/dL Calcium (8.5-10.1) mg/dL Phosphorus (2.6-4.7) mg/dL Magnesium (1.8-2.4) mg/dL Troponin I (0.000-0.056) ng/mL Urine Color Urine Appearance Urine pH (5.0-8.0) Ur Specific [place] (1.001-1.035) Urine Protein (NEGATIVE) mg/dL Urine Glucose (UA) (NEGATIVE) mg/dL Urine Ketones (NEGATIVE) mg/dL Urine Occult Blood (NEGATIVE) Urine Nitrite (NEGATIVE) Urine Bilirubin (NEGATIVE) Urine Urobilinogen (<2.0) EU/dL Ur Leukocyte Esterase (NEGATIVE) Urine RBC (0-2/HPF) Urine WBC (0-5/HPF) Ur Squamous Epith Cells Urine Bacteria (NEGATIVE) Urine Yeast Ketones (NEG) COVID-19 (AD[facility]) (NEGATIVE) Med Orders - Current: Current Medications Discontinued Medications Acetaminophen (Tylenol) 650 mg PO Q4H PRN PRN Reason: Pain (Mild 1-3)/fever Aspirin (Aspirin) 325 mg PO ONETIME ONE Stop: 11/19/19 11:40 Last Admin: 11/19/19 11:53 Dose: 325 mg Documented by: Al Hydroxide/Mg Hydroxide 15 (ml/ Lidocaine HCl 5 ml) 0 ml PO ONETIME ONE Stop: 11/19/19 15:46 Last Admin: 11/19/19 16:11 Dose: 1 each Documented by: Enoxaparin Sodium (Lovenox) 40 mg SUBCUT Q24H LESLIE Last Admin: 11/19/19 16:14 Dose: 40 mg Documented by: Fentanyl (Fentanyl) 50 mcg IVPUSH ONETIME ONE Stop: 11/19/19 14:51 Last Admin: 11/19/19 14:55 Dose: 50 mcg Documented by: Lactated Ringer's (Ringers, Lactated) 1,000 mls @ 999 mls/hr IV .BOLUS ONE Stop: 11/19/19 12:34 Last Admin: 11/19/19 11:53 Dose: 999 mls/hr Documented by: Lactated Ringer's (Ringers, Lactated) 1,000 mls @ 999 mls/hr IV .BOLUS ONE Stop: 11/19/19 13:56 Last Admin: 11/19/19 14:06 Dose: 999 mls/hr Documented by: Potassium Chloride 20 meq/ (Premix) 50 mls @ 25 mls/hr IV ONETIME ONE Stop: 11/19/19 15:20 Last Admin: 11/19/19 14:04 Dose: 25 mls/hr Documented by: Insulin Human Regular 100 unit (/ Sodium Chloride) 100 mls @ 7 mls/hr IV TITRATE LESLIE; Protocol Last Admin: 11/19/19 14:32 Dose: 7 unit/hr, 7 mls/hr Documented by: Sodium Chloride (Normal Saline) 250 mls @ 100 mls/hr IV ASDIRECTED LESLIE Last Admin: 11/19/19 14:49 Dose: 100 mls/hr Documented by: Sodium Chloride (Sodium Chloride 0.45%) 1,000 mls @ 250 mls/hr IV ASDIRECTED LESLIE Sodium Chloride (Normal Saline) 1,000 mls @ 999 mls/hr IV STAT ONE Stop: 11/19/19 16:12 Last Admin: 11/19/19 15:28 Dose: Not Given Documented by: Potassium Chloride/Sodium Chloride (Normal Saline With 20 Meq Kcl) 1,000 mls @ 250 mls/hr IV ASDIRECTED LESLIE Last Admin: 11/19/19 16:15 Dose: 250 mls/hr Documented by: Insulin Human Regular 100 unit (/ Sodium Chloride) 100 mls @ 6 mls/hr IV TITRATE LESLIE; Protocol Last Titration: 11/19/19 22:04 Dose: 1 unit/hr, 1 mls/hr Documented by: Sodium Chloride (Normal Saline) 1,000 mls @ 250 mls/hr IV STAT LESLIE Last Admin: 11/19/19 16:46 Dose: 250 mls/hr Documented by: Potassium Chloride/Sodium Chloride (Normal Saline With 20 Meq Kcl) 1,000 mls @ 250 mls/hr IV ASDIRECTED LESLIE Last Admin: 11/19/19 18:49 Dose: 250 mls/hr Documented by: Lactated Ringer's (Ringers, Lactated) 500 mls @ 999 mls/hr IV .BOLUS ONE Stop: 11/19/19 18:50 Last Admin: 11/19/19 18:41 Dose: 999 mls/hr Documented by: Iopamidol (Isovue Multipack-370 (76%)) 60 ml IVPUSH ONETIME ONE Stop: 11/19/19 12:59 Last Admin: 11/19/19 12:59 Dose: 60 ml Documented by: Levothyroxine Sodium (Synthroid) 100 mcg PO QAM LESLIE Levothyroxine Sodium (Synthroid) 100 mcg PO ACBREAKFAST [facility] Last Admin: 11/20/19 08:14 Dose: 100 mcg Documented by: Ondansetron HCl (Zofran) 4 mg IVPUSH ONETIME ONE Stop: 11/19/19 11:35 Last Admin: 11/19/19 11:52 Dose: 4 mg Documented by: Ondansetron HCl (Zofran Odt) 4 mg PO Q4H PRN PRN Reason: nausea, able to take PO Ondansetron HCl (Zofran) 4 mg IVPUSH Q4H PRN PRN Reason: Nausea Pramipexole Dihydrochloride (Mirapex) 1 mg PO DAILY [facility] Last Admin: 11/20/19 08:15 Dose: Not Given Documented by: Sodium Chloride (Saline Flush) 2.5 ml FLUSH ASDIRECTED PRN PRN Reason: Keep Vein Open Sodium Chloride (Saline Flush) 10 ml FLUSH ASDIRECTED PRN PRN Reason: Keep Vein Open <Juan Isbell - Last Filed: 11/22/19 18:40> Discharge Summary - Referral to Home Health Primary Care Physician: Augustine Hou MD - Patient Data Vitals - Most Recent: Last Vital Signs Temp 35.9 C L 11/20/19 08:00 Pulse 96 11/19/19 14:47 Resp 11 L 11/20/19 10:00 BP 110/79 11/20/19 10:00 Pulse Ox 99 11/20/19 10:00 DANIEL Results - Last 24 hrs: Microbiology 11/19/19 14:47 Aerobic Blood Culture - Preliminary Blood - Venous - Lab Draw NO GROWTH AFTER 3 DAYS Anaerobic Blood Culture - Preliminary NO GROWTH AFTER 3 DAYS 11/19/19 13:20 Aerobic Blood Culture - Preliminary Blood - Venous NO GROWTH AFTER 3 DAYS Anaerobic Blood Culture - Preliminary NO GROWTH AFTER 3 DAYS Med Orders - Current: Current Medications Discontinued Medications Acetaminophen (Tylenol) 650 mg PO Q4H PRN PRN Reason: Pain (Mild 1-3)/fever Aspirin (Aspirin) 325 mg PO ONETIME ONE Stop: 11/19/19 11:40 Last Admin: 11/19/19 11:53 Dose: 325 mg Documented by: Al Hydroxide/Mg Hydroxide 15 (ml/ Lidocaine HCl 5 ml) 0 ml PO ONETIME ONE Stop: 11/19/19 15:46 Last Admin: 11/19/19 16:11 Dose: 1 each Documented by: Enoxaparin Sodium (Lovenox) 40 mg SUBCUT Q24H LESLIE Last Admin: 11/19/19 16:14 Dose: 40 mg Documented by: Fentanyl (Fentanyl) 50 mcg IVPUSH ONETIME ONE Stop: 11/19/19 14:51 Last Admin: 11/19/19 14:55 Dose: 50 mcg Documented by: Lactated Ringer's (Ringers, Lactated) 1,000 mls @ 999 mls/hr IV .BOLUS ONE Stop: 11/19/19 12:34 Last Admin: 11/19/19 11:53 Dose: 999 mls/hr Documented by: Lactated Ringer's (Ringers, Lactated) 1,000 mls @ 999 mls/hr IV .BOLUS ONE Stop: 11/19/19 13:56 Last Admin: 11/19/19 14:06 Dose: 999 mls/hr Documented by: Potassium Chloride 20 meq/ (Premix) 50 mls @ 25 mls/hr IV ONETIME ONE Stop: 11/19/19 15:20 Last Admin: 11/19/19 14:04 Dose: 25 mls/hr Documented by: Insulin Human Regular 100 unit (/ Sodium Chloride) 100 mls @ 7 mls/hr IV TITRATE LESLIE; Protocol Last Admin: 11/19/19 14:32 Dose: 7 unit/hr, 7 mls/hr Documented by: Sodium Chloride (Normal Saline) 250 mls @ 100 mls/hr IV ASDIRECTED LESLIE Last Admin: 11/19/19 14:49 Dose: 100 mls/hr Documented by: Sodium Chloride (Sodium Chloride 0.45%) 1,000 mls @ 250 mls/hr IV ASDIRECTED LESLIE Sodium Chloride (Normal Saline) 1,000 mls @ 999 mls/hr IV STAT ONE Stop: 11/19/19 16:12 Last Admin: 11/19/19 15:28 Dose: Not Given Documented by: Potassium Chloride/Sodium Chloride (Normal Saline With 20 Meq Kcl) 1,000 mls @ 250 mls/hr IV ASDIRECTED LESLIE Last Admin: 11/19/19 16:15 Dose: 250 mls/hr Documented by: Insulin Human Regular 100 unit (/ Sodium Chloride) 100 mls @ 6 mls/hr IV TITRATE LESLIE; Protocol Last Titration: 11/19/19 22:04 Dose: 1 unit/hr, 1 mls/hr Documented by: Sodium Chloride (Normal Saline) 1,000 mls @ 250 mls/hr IV STAT LESLIE Last Admin: 11/19/19 16:46 Dose: 250 mls/hr Documented by: Potassium Chloride/Sodium Chloride (Normal Saline With 20 Meq Kcl) 1,000 mls @ 250 mls/hr IV ASDIRECTED LESLIE Last Admin: 11/19/19 18:49 Dose: 250 mls/hr Documented by: Lactated Ringer's (Ringers, Lactated) 500 mls @ 999 mls/hr IV .BOLUS ONE Stop: 11/19/19 18:50 Last Admin: 11/19/19 18:41 Dose: 999 mls/hr Documented by: Iopamidol (Isovue Multipack-370 (76%)) 60 ml IVPUSH ONETIME ONE Stop: 11/19/19 12:59 Last Admin: 11/19/19 12:59 Dose: 60 ml Documented by: Levothyroxine Sodium (Synthroid) 100 mcg PO QAM LESLIE Levothyroxine Sodium (Synthroid) 100 mcg PO ACBREAKFAST [facility] Last Admin: 11/20/19 08:14 Dose: 100 mcg Documented by: Ondansetron HCl (Zofran) 4 mg IVPUSH ONETIME ONE Stop: 11/19/19 11:35 Last Admin: 11/19/19 11:52 Dose: 4 mg Documented by: Ondansetron HCl (Zofran Odt) 4 mg PO Q4H PRN PRN Reason: nausea, able to take PO Ondansetron HCl (Zofran) 4 mg IVPUSH Q4H PRN PRN Reason: Nausea Pramipexole Dihydrochloride (Mirapex) 1 mg PO DAILY [facility] Last Admin: 11/20/19 08:15 Dose: Not Given Documented by: Sodium Chloride (Saline Flush) 2.5 ml FLUSH ASDIRECTED PRN PRN Reason: Keep Vein Open Sodium Chloride (Saline Flush) 10 ml FLUSH ASDIRECTED PRN PRN Reason: Keep Vein Open - Free Text/Narrative Note: I have seen and evaluated the patient with the resident. I have discussed findings and treatment plan with the resident. I agree with the assessment and plan outlined in the following note.
== END 2019-11-20 12:03 | disposition home or self-care (01) | DRG 919 ==
LOC: MW.ED 11:19 → MW.ICU 14:05
PROVIDERS: ADMIT Internal Medicine; ATTEND Internal Medicine
DX: T85.624A Displacement of insulin pump, initial encounter (principal); E10.10 Type 1 diabetes mellitus with ketoacidosis without coma; I10 Essential (primary) hypertension; E03.9 Hypothyroidism, unspecified; M79.7 Fibromyalgia; H54.7 Unspecified visual loss; R07.9 Chest pain, unspecified; K59.09 Other constipation; K21.9 Gastro-esophageal reflux disease without esophagitis; M19.90 Unspecified osteoarthritis, unspecified site; G89.29 Other chronic pain; M54.9 Dorsalgia, unspecified; M54.2 Cervicalgia; G43.909 Migraine, unspecified, not intractable, without status migrainosus; G25.81 Restless legs syndrome; F41.9 Anxiety disorder, unspecified; F32.9 Major depressive disorder, single episode, unspecified; Z20.828 Contact with and (suspected) exposure to other viral communicable diseases; Z90.89 Acquired absence of other organs; Z79.899 Other long term (current) drug therapy; Z79.4 Long term (current) use of insulin; Z79.890 Hormone replacement therapy; Z88.5 Allergy status to narcotic agent; Z88.8 Allergy status to other drugs, medicaments and biological substances; Z87.891 Personal history of nicotine dependence; Z86.010 Personal history of colon polyps; Z90.710 Acquired absence of both cervix and uterus
CPT/HCPCS: 36415; 71046; 71046-26; 71275; 71275-26; 80048; 80053; 81001; 82009; 82803; 82962; 83605; 83735; 84100; 84132; 84484; 84703; 85025; 85379; 87040; 93005; 96374; 96375; 99284; 99285-25; A9270-GY; J1650; J1815-GY; J2405; J3010; J3480; J7030; J7050; J7120; Q9967; U0002

== ENCOUNTER 2020-12-04 09:45 | Observation (INO) | payer BC ==
[2020-12-04] MEDS ORDERED: Sodium Chloride 0.9% 10 ML Syringe FLUSH PRN (10:09)
[2020-12-04] MEDS ORDERED: Sodium Chloride 0.9% 2.5 ML Syringe FLUSH PRN (10:09)
[2020-12-04] MEDS ORDERED: Sodium Chloride 0.9% 1,000 ML IV ONE ×4 (10:10→16:25)
[2020-12-04] MEDS ORDERED: Morphine 4 MG/ML Syringe IVPUSH ONE ×3 (10:10→16:36)
[2020-12-04] MEDS ORDERED: Ondansetron 4 MG/2 ML SDV IVPUSH ONE (10:10)
--- NOTE | 2020-12-04 10:13 | EDM.PDOC ---
ED HPI GENERAL MEDICAL PROBLEM - General Chief Complaint: Gastrointestinal Problem Stated Complaint: STOMACH PAIN Time Seen by Provider: 12/04/20 09:56 Source of Information: Reports: Patient History Limitations: Reports: No Limitations - History of Present Illness INITIAL COMMENTS - FREE TEXT/NARRATIVE: HISTORY AND PHYSICAL: History of present illness: Patient is a 45-year-old female who presents to the emergency room with complaints of generalized abdominal pain, bloody stool and nausea. She states on Friday she felt like she had been constipated with abdominal cramping and eventually had sat on the toilet for approximately 1 hour. She had numerous bloody mixed stools over this time frame. Since this episode she has had generalized abdominal pain and cramping with nausea. She has been using her hydrocodone from home with mild to moderate relief of pain. Cramping and maroon colored stools have continued, decided to come to the emergency room for evaluation. Patient denies any fever, chills, headache, change in vision, syncope or near syncope. Denies any chest pain, back pain, shortness of breath or cough. Denies any dysuria or hematuria. Patient has had a hysterectomy, no concern for . The patient has been eating and drinking appropriately. Past medical history of type 1 diabetes, irritable bowel syndrome, constipation, thyroid issues and fibromyalgia. 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 Mayo regarding this issue. Review of systems: As per history of present illness and below otherwise all systems reviewed and negative. Past medical history: As per history of present illness and as reviewed below otherwise noncontributory. Surgical history: As per history of present illness and as reviewed below otherwise noncontributory. Social history: See social history for further information Family history: As per history of present illness and as reviewed below otherwise noncontributory. Physical exam: General: Well developed and well nourished 45 year old female. Alert and orientated x 3. Nontoxic in appearance and in no acute distress. Vital signs are stable and have been reviewed by me. Nursing notes were reviewed. HEENT: Atraumatic, normocephalic, pupils equal and reactive bilaterally, negative for conjunctival pallor or scleral icterus, mucous membranes moist, trachea midline. No drooling or trismus noted. No meningeal signs. No hot potato voice noted. Lungs: Clear to auscultation bilaterally. No wheezes, rales, or rhonchi. Chest nontender. Normal work of breathing, no accessory muscles used. Heart: S1S2, regular rate and rhythm without overt murmur, gallops, or rubs. No JVD. No peripheral edema Abdomen: Soft, nondistended, generalized tenderness throughout all 4 quadrants. Hypoactive bowel sounds. Negative for masses or costovertebral tenderness. Pelvis: Stable nontender. Genitourinary/Rectal: This was done with consent and a supercharger repair supervisor at the bedside. No external or internal hemorrhoids are appreciated. She does have maroon- colored stool, Hemoccult positive. Good rectal tone. Skin: Intact, warm, dry. No lesions or rashes noted. Hematologic: No petechiae or purpra. Mucosa appropriate color and normal nail bed color and refill. Extremities: Atraumatic, moves all extremities per self without difficulty or deficits, negative for cords or calf pain. Neurovascular unremarkable. Neuro: Awake, alert, oriented. Cranial nerves II through XII unremarkable. Cerebellum unremarkable. Motor and sensory unremarkable throughout. Exam nonfocal. Psychiatric: Mood and affect are appropriate. Normal thought process. Answering questions appropriately. Notes: *This patient was seen and evaluated during the 2019 SARS-CoV-2 novel coronavirus pandemic period. Community viral transmission is ongoing at time of this encounter and the emergency department is operating under pandemic response procedures. Patient is a 45-year-old male who presents to the emergency room with complaints of abdominal cramping mild nausea and bloody stools. She does have generalized tenderness in all 4 quadrants. She is slightly tachycardic although I feel this is related to possible blood loss from her rectum versus active bacterial infection. Rectal exam reveals no internal/external hemorrhoids, positive Hemoccult stool. Maroon in color. I will type and screen in the case she does need to receive blood products. Patient's hemoglobin and hematocrit is 14.9 and 41.2. Vital signs are stable. Blood glucose 271. Lactate is 3.7. Will repeat lactate with reflex and give her second liter of fluids while waiting for CT abdomen and pelvis results. Please note that does not meet SIRS criteria. CT of the abdomen and pelvis shows diffuse thickening involving the wall of the entire descending colon and the sigmoid colon in the distribution of the inferior mesenteric artery most likely representing ischemic colitis. No pneumoperitoneum. No evidence of pneumatosis. Mild diffuse fatty infiltration of the liver. No focal hepatic or splenic pathology. Gallbladder is unremarkable. No adrenal pathology. No kidney stones or obstructive uropathy. No retroperitoneal lymphadenopathy. Retro aortic left renal vein with absent anterior component; normal variant. Appendix is not clearly visualized; no inflammatory changes surrounding the cecum. Tiny amount of free fluid identified within the pelvic peritoneal cavity. Splenic vein, superior mesenteric vein and the portal vein are unremarkable. Celiac axis and superior mesenteric arteries are unremarkable. Inferior mesenteric artery appears unremarkable. No abnormal intra pulmonary nodular densities through the lung bases. No evidence of pleural effusion. 1220: Spoke with Dr Isbell, general surgeon on-call, was consulted. He states this would not be a surgical issue and I should talk with medicine or IR. He states he would be able to do a colonoscopy but would like IR consulted first. 1230: Consulted IR at [facility], MD is currently in a procedure, will return the call. 1240: [facility] is at capacity, unable to accept any patients. 1250: [facility] is at capacity, unable to talk with their IR. [facility] does have a few beds available depending on COVID-19 status. I did talk with interventional radiologist, Dr Warren, who states that this patient would likely be admitted to the hospitalist and consult IR if needed. They would likely try to find the source/cause of ischemia and end up doing a colonoscopy. I will call back once her COVID-19 test has returned 1305: Spoke with Dr Ziegler, hospitalist at [facility]. Provider is agreeable to accepting this patient. Currently there hospital is full but they are expecting multiple discharges over the afternoon. There are few admissions ahead of us, stating that the patient will take a few hours before they can give us a bed assignment. They do not want me to arrange transfer or start transferring the patient until the bed is officially signed. Dr. Ziegler is aware of this delay. Requesting IV fluids to be hung. He is fine with Zosyn antibiotic being ran at this time and encouraged the patient to be NPO. I have talked with the patient about today's findings, in addition to providing specific details for plan of care. Reassessment at the time of disposition demonstrates that the patient is in no acute distress. Instructed to be NPO until instructed otherwise. 1500: Repeat lactate shows 2.1, this is improved. We are still waiting for [facility] to call us with a bed. We have checked multiple times with them, we have been informed that the patient has been accepted but discharging patients and getting rooms open is taking longer than expected. 1600: [facility] still waiting for a bed to open up. Our emergency room is very busy and patient is uncomfortable in the ER room. I did speak with Dr. Hector, hospitalist on-call as the wait could be as long as waiting till tomorrow morning. Patient is aware of the delay and agreeable to moving into a more comfortable room while awaiting transport. Patient has been monitoring her blood sugars, they are within normal range. She states she feels better since arrival and having IV fluids. Diagnostics: CBC, CMP, lipase, UA, CT abdomen and pelvis, lactate with reflex Therapeutics: IV fluid, Zofran, morphine, Zosyn Impression: Ischemic colitis Definitive disposition and diagnosis as appropriate pending reevaluation and review of above. abdomen Pain Score (Numeric/FACES): 7 - Related Data Allergies Allergy/AdvReac Type Severity Reaction Status Date / Time codeine Allergy Itching Verified 12/04/20 18:28 fluoxetine Allergy Confusion Verified 12/04/20 18:28 meperidine HCl [From Demerol] Allergy Hives/reddn Verified 12/04/20 18:28 ess/swellin g Flu Mist Allergy Swelling Uncoded 12/04/20 18:28 Home Meds: Home Meds Clobetasol [Clobetasol Propionate 0.05%] 15 gm TOP BID PRN 09/29/13 [History] Levothyroxine 100 mcg PO QAM 09/29/13 [History] Insulin Aspart [NovoLOG] 40 unit IMPLANT DAILY 01/19/15 [History] Pramipexole [Mirapex] 0.125 mg PO BEDTIME 01/25/19 [History] Acetaminophen/HYDROcodone [Starks 325-5 MG] 1 tab PO ASDIRECTED 11/13/19 [History] clonazePAM [Clonazepam] 1 mg PO DAILY PRN 11/13/19 [History] Fluticasone Propionate [Flonase Allergy Relief] 1 spray NS DAILY PRN 11/19/19 [History] lisinopriL [Lisinopril] 10 mg PO DAILY 30 Days #30 tablet 11/20/19 [Rx] Past Medical History HEENT History: Reports: Other (See Below) Other HEENT History: wears glasses Cardiovascular History: Reports: Hypertension Respiratory History: Reports: None Other Respiratory History: Former smoker QUIT '2009 Gastrointestinal History: Reports: Chronic Constipation, Colon Polyp, GERD, Hemorrhoids, Helicobacter Pylori, Irritable Bowel Syndrome, Other (See Below) Other Gastrointestinal History: hx of C-Diff in 2018 Genitourinary History: Reports: None Other Genitourinary History: history of yeast infections 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: Musculoskeletal History: Reports: Arthritis, Back Pain, Chronic, Fibromyalgia, Neck Pain, Chronic Neurological History: Reports: Concussion, Headaches, Chronic, Migraines, Other (See Below) Other Neuro History: hx of motion sickness, has Restless Leg Syndrome Psychiatric History: Reports: Anxiety, Depression Endocrine/Metabolic History: Reports: Diabetes, Type I, Hypothyroidism, IDDM Other Endocrine/Metabolic History: Hypothyroidism 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: 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 Hematologic History: Reports: None Immunologic History: Reports: None Oncologic (Cancer) History: Reports: None Dermatologic History: Reports: Psoriasis - Infectious Disease History Infectious Disease History: Reports: C-Difficile, Chicken Pox, Shingles - Past Surgical History Head Surgeries/Procedures: Reports: None HEENT Surgical History: Reports: Adenoidectomy, Tonsillectomy Other HEENT Surgeries/Procedures: [place] teeth extracted GI Surgical History: Reports: Colonoscopy, EGD Female Surgical History: Reports: Section, Hysterectomy, Tubal Ligation Other Female Surgeries/Procedures: Laparoscopy, Hysteroscopy, Essure Procedure Neurological Surgical History: Reports: C-Spine, Spinal Fusion Other Neurological Surgeries/Procedures: cervical fusion, C5-6 Social & Family History - Family History Family Medical History: No Pertinent Family History - Tobacco Use Tobacco Use Status *Q: Never Tobacco User - Caffeine Use Caffeine Use: Reports: None - Recreational Drug Use Recreational Drug Use: No ED ROS GENERAL - Review of Systems Review Of Systems: Comprehensive ROS is negative, except as noted in HPI. ED EXAM, GI/ABD - Physical Exam Exam: See Below (See dictation) Course - Vital Signs Last Recorded V/S: Last Vital Signs Temp 96.9 F 12/04/20 18:08 Pulse 75 12/04/20 18:08 Resp 16 12/04/20 17:37 BP 152/92 H 12/04/20 18:08 Pulse Ox 99 12/04/20 18:08 - Orders/Labs/Meds Orders: Active Orders 24 hr Category Date Time Status Blood Glucose Check, Bedside [RC] ONETIME Care 12/04/20 09:57 Active CULTURE BLOOD [BC] Stat Lab 12/04/20 12:58 Received CULTURE BLOOD [BC] Stat Lab 12/04/20 13:10 Received Sodium Chloride 0.9% [Saline Flush] Med 12/04/20 10:09 Active 10 ml FLUSH ASDIRECTED PRN Sodium Chloride 0.9% [Saline Flush] Med 12/04/20 10:09 Active 2.5 ml FLUSH ASDIRECTED PRN Blood Culture x2 Reflex Set [OM.PC] Stat Oth 12/04/20 12:27 Ordered Saline Lock Insert [OM.PC] Stat Oth 12/04/20 10:09 Ordered Medication Orders Acetaminophen (Acetaminophen 325 Mg Tab) 650 mg PO Q4H PRN PRN Reason: Pain (Mild 1-3)/fever Albuterol/Ipratropium (Albuterol/Ipratropium 3.0-0.5 Mg/3 Ml Neb Soln) 3 ml NEB Q4HRRT PRN PRN Reason: Shortness Of Breath/wheezing Dextrose/Water (50% Dextrose In Water 50 Ml Syringe) 50 ml IVPUSH ASDIRECTED PRN PRN Reason: Hypoglycemia Glucagon (Glucagon,Human Recombinant 1 Mg Vial) 1 mg IM ASDIRECTED PRN PRN Reason: Hypoglycemia Lactated Ringer's (Ringers, Lactated) 1,000 mls @ 125 mls/hr IV ASDIRECTED LESLIE Piperacillin Sod/Tazobactam (Sod 3.375 gm/ Sodium Chloride) 50 mls @ 100 mls/hr IV Q8H LESLIE Morphine Sulfate (Morphine 2 Mg/Ml Syringe) 2 mg IVPUSH Q3H PRN PRN Reason: Pain Ondansetron HCl (Ondansetron 4 Mg/2 Ml Sdv) 4 mg IVPUSH Q4H PRN PRN Reason: Nausea/Vomiting Pantoprazole Sodium (Pantoprazole 40 Mg Vial) 40 mg IV Q12HR LESLIE Sodium Chloride (Sodium Chloride 0.9% 10 Ml Syringe) 10 ml FLUSH ASDIRECTED PRN PRN Reason: Keep Vein Open Last Admin: 12/04/20 10:16 Dose: 10 ml Documented by: GERRY Sodium Chloride (Sodium Chloride 0.9% 2.5 Ml Syringe) 2.5 ml FLUSH ASDIRECTED PRN PRN Reason: Keep Vein Open Last Admin: 12/04/20 10:17 Dose: 2.5 ml Documented by: GERRY Labs: Laboratory Tests 12/04/20 12/04/20 12/04/20 Range/Units 10:16 10:16 10:16 WBC 8.33 (4.0-11.0) K/uL RBC 3.84 L (4.30-5.90) M/uL Hgb 14.9 (12.0-16.0) g/dL Hct 41.2 (36.0-46.0) % MCV 107.3 H (80.0-98.0) fL MCH 38.8 H (27.0-32.0) pg MCHC 36.2 (31.0-37.0) g/dL RDW Std Deviation 61.7 (28.0-62.0) fl RDW Coeff of Juan 16 H (11.0-15.0) % Plt Count 169 (150-400) K/uL MPV 10.70 (7.40-12.00) fL Neut % (Auto) 74.3 (48.0-80.0) % Lymph % (Auto) 15.4 L (16.0-40.0) % [place] % (Auto) 9.4 (0.0-15.0) % Eos % (Auto) 0.5 (0.0-7.0) % Baso % (Auto) 0.4 (0.0-1.5) % Neut # (Auto) 6.2 H (1.4-5.7) K/uL Lymph # (Auto) 1.3 (0.6-2.4) K/uL [place] # (Auto) 0.8 (0.0-0.8) K/uL Eos # (Auto) 0.0 (0.0-0.7) K/uL Baso # (Auto) 0.0 (0.0-0.1) K/uL Nucleated RBC % 0.0 /100WBC Nucleated RBCs # 0 K/uL INR 0.96 Sodium 133 L (136-145) mmol/L Potassium 3.4 L (3.5-5.1) mmol/L Chloride 92 L (98-107) mmol/L Carbon Dioxide 30.3 (21.0-32.0) mmol/L BUN 9 (7.0-18.0) mg/dL Creatinine 1.0 (0.6-1.0) mg/dL Est Cr Clr Drug Dosing 61.35 mL/min Estimated GFR (MDRD) 60.0 ml/min Glucose 262 H (74-106) mg/dL POC Glucose (70-99) mg/dL Lactic Acid (0.4-2.0) mmol/L Calcium 8.8 (8.5-10.1) mg/dL Total Bilirubin 1.2 H (0.2-1.0) mg/dL AST 142 H (15-37) IU/L ALT 62 (14-63) IU/L Alkaline Phosphatase 132 H (46-116) U/L Total Protein 6.8 (6.4-8.2) g/dL Albumin 3.3 L (3.4-5.0) g/dL Globulin 3.5 (2.6-4.0) g/dL Albumin/Globulin Ratio 0.9 (0.9-1.6) Lipase 42 L (73-393) U/L SARS-CoV-2 RNA (ADAM) (NEGATIVE) Blood Type Antibody Screen 12/04/20 12/04/20 12/04/20 Range/Units 10:16 10:16 10:23 WBC (4.0-11.0) K/uL RBC (4.30-5.90) M/uL Hgb (12.0-16.0) g/dL Hct (36.0-46.0) % MCV (80.0-98.0) fL MCH (27.0-32.0) pg MCHC (31.0-37.0) g/dL RDW Std Deviation (28.0-62.0) fl RDW Coeff of Juan (11.0-15.0) % Plt Count (150-400) K/uL MPV (7.40-12.00) fL Neut % (Auto) (48.0-80.0) % Lymph % (Auto) (16.0-40.0) % [place] % (Auto) (0.0-15.0) % Eos % (Auto) (0.0-7.0) % Baso % (Auto) (0.0-1.5) % Neut # (Auto) (1.4-5.7) K/uL Lymph # (Auto) (0.6-2.4) K/uL [place] # (Auto) (0.0-0.8) K/uL Eos # (Auto) (0.0-0.7) K/uL Baso # (Auto) (0.0-0.1) K/uL Nucleated RBC % /100WBC Nucleated RBCs # K/uL INR Sodium (136-145) mmol/L Potassium (3.5-5.1) mmol/L Chloride (98-107) mmol/L Carbon Dioxide (21.0-32.0) mmol/L BUN (7.0-18.0) mg/dL Creatinine (0.6-1.0) mg/dL Est Cr Clr Drug Dosing mL/min Estimated GFR (MDRD) ml/min Glucose (74-106) mg/dL POC Glucose 271 H (70-99) mg/dL Lactic Acid 3.7 H* (0.4-2.0) mmol/L Calcium (8.5-10.1) mg/dL Total Bilirubin (0.2-1.0) mg/dL AST (15-37) IU/L ALT (14-63) IU/L Alkaline Phosphatase (46-116) U/L Total Protein (6.4-8.2) g/dL Albumin (3.4-5.0) g/dL Globulin (2.6-4.0) g/dL Albumin/Globulin Ratio (0.9-1.6) Lipase (73-393) U/L SARS-CoV-2 RNA (ADAM) (NEGATIVE) Blood Type B POSITIVE Antibody Screen NEGATIVE 12/04/20 12/04/20 12/04/20 Range/Units 12:14 14:19 15:37 WBC (4.0-11.0) K/uL RBC (4.30-5.90) M/uL Hgb (12.0-16.0) g/dL Hct (36.0-46.0) % MCV (80.0-98.0) fL MCH (27.0-32.0) pg MCHC (31.0-37.0) g/dL RDW Std Deviation (28.0-62.0) fl RDW Coeff of Juan (11.0-15.0) % Plt Count (150-400) K/uL MPV (7.40-12.00) fL Neut % (Auto) (48.0-80.0) % Lymph % (Auto) (16.0-40.0) % [place] % (Auto) (0.0-15.0) % Eos % (Auto) (0.0-7.0) % Baso % (Auto) (0.0-1.5) % Neut # (Auto) (1.4-5.7) K/uL Lymph # (Auto) (0.6-2.4) K/uL [place] # (Auto) (0.0-0.8) K/uL Eos # (Auto) (0.0-0.7) K/uL Baso # (Auto) (0.0-0.1) K/uL Nucleated RBC % /100WBC Nucleated RBCs # K/uL INR Sodium (136-145) mmol/L Potassium (3.5-5.1) mmol/L Chloride (98-107) mmol/L Carbon Dioxide (21.0-32.0) mmol/L BUN (7.0-18.0) mg/dL Creatinine (0.6-1.0) mg/dL Est Cr Clr Drug Dosing mL/min Estimated GFR (MDRD) ml/min Glucose (74-106) mg/dL POC Glucose (70-99) mg/dL Lactic Acid 2.1 H* 1.9 (0.4-2.0) mmol/L Calcium (8.5-10.1) mg/dL Total Bilirubin (0.2-1.0) mg/dL AST (15-37) IU/L ALT (14-63) IU/L Alkaline Phosphatase (46-116) U/L Total Protein (6.4-8.2) g/dL Albumin (3.4-5.0) g/dL Globulin (2.6-4.0) g/dL Albumin/Globulin Ratio (0.9-1.6) Lipase (73-393) U/L SARS-CoV-2 RNA (ADAM) NEGATIVE (NEGATIVE) Blood Type Antibody Screen Meds: Medications Generic Name Dose Route Start Last Admin Trade Name Rick PRN Reason Stop Dose Admin Acetaminophen 650 mg 12/04/20 18:45 Acetaminophen 325 Mg Tab PO Q4H PRN Pain (Mild 1-3)/fever Albuterol/Ipratropium 3 ml 12/04/20 18:45 Albuterol/Ipratropium 3.0-0.5 Mg/3 Ml Neb Soln NEB Q4HRRT PRN Shortness Of Breath/wheezing Dextrose/Water 50 ml 12/04/20 18:52 50% Dextrose In Water 50 Ml Syringe IVPUSH ASDIRECTED PRN Hypoglycemia Glucagon 1 mg 12/04/20 18:52 Glucagon,Human Recombinant 1 Mg Vial IM ASDIRECTED PRN Hypoglycemia Lactated Ringer's 1,000 mls @ 125 mls/hr 12/04/20 19:45 Ringers, Lactated IV ASDIRECTED LESLIE Piperacillin Sod/Tazobactam 50 mls @ 100 mls/hr 12/04/20 20:00 Sod 3.375 gm/ Sodium Chloride IV Q8H LESLIE Morphine Sulfate 2 mg 12/04/20 19:49 Morphine 2 Mg/Ml Syringe IVPUSH Q3H PRN Pain Ondansetron HCl 4 mg 12/04/20 18:45 Ondansetron 4 Mg/2 Ml Sdv IVPUSH Q4H PRN Nausea/Vomiting Pantoprazole Sodium 40 mg 12/04/20 21:00 Pantoprazole 40 Mg Vial IV Q12HR LESLIE Sodium Chloride 10 ml 12/04/20 10:09 12/04/20 10:16 Sodium Chloride 0.9% 10 Ml Syringe FLUSH 10 ml ASDIRECTED PRN Administration Keep Vein Open Sodium Chloride 2.5 ml 12/04/20 10:09 12/04/20 10:17 Sodium Chloride 0.9% 2.5 Ml Syringe FLUSH 2.5 ml ASDIRECTED PRN Administration Keep Vein Open Discontinued Medications Generic Name Dose Route Start Last Admin Trade Name Rick PRN Reason Stop Dose Admin Sodium Chloride 1,000 mls @ 999 mls/hr 12/04/20 10:10 12/04/20 10:17 Normal Saline IV 12/04/20 11:10 999 mls/hr STAT ONE Administration Sodium Chloride 1,000 mls @ 999 mls/hr 12/04/20 11:46 12/04/20 12:28 Normal Saline IV 12/04/20 12:46 999 mls/hr STAT ONE Administration Piperacillin Sod/Tazobactam 50 mls @ 100 mls/hr 12/04/20 12:34 12/04/20 13:07 Sod 3.375 gm/ Sodium Chloride IV 12/04/20 13:03 100 mls/hr ONETIME ONE Administration Sodium Chloride 1,000 mls @ 999 mls/hr 12/04/20 12:50 12/04/20 13:07 Normal Saline IV 12/04/20 13:50 999 mls/hr STAT ONE Administration Sodium Chloride 1,000 mls @ 150 mls/hr 12/04/20 16:25 12/04/20 16:54 Normal Saline IV 12/04/20 23:04 150 mls/hr STAT ONE Administration Insulin Aspart 0 unit 12/04/20 18:52 Insulin Aspart 100 Units/Ml 3 Ml Pen SUBCUT TIDAC [facility] Protocol Iopamidol 100 ml 12/04/20 13:57 12/04/20 13:58 Iopamidol 755 Mg/Ml 500 Ml Multipack Bottle IVPUSH 12/04/20 13:58 100 ml ONETIME STA Administration Morphine Sulfate 4 mg 12/04/20 10:10 12/04/20 10:17 Morphine 4 Mg/Ml Syringe IVPUSH 12/04/20 10:11 4 mg ONETIME ONE Administration Morphine Sulfate 4 mg 12/04/20 12:51 12/04/20 13:06 Morphine 4 Mg/Ml Syringe IVPUSH 12/04/20 12:52 4 mg ONETIME ONE Administration Morphine Sulfate 4 mg 12/04/20 16:36 12/04/20 16:54 Morphine 4 Mg/Ml Syringe IVPUSH 12/04/20 16:37 4 mg ONETIME ONE Administration Ondansetron HCl 4 mg 12/04/20 10:10 12/04/20 10:17 Ondansetron 4 Mg/2 Ml Sdv IVPUSH 12/04/20 10:11 4 mg ONETIME ONE Administration Pantoprazole Sodium 40 mg 12/05/20 09:00 Pantoprazole 40 Mg Vial IV DAILY [facility] Departure - Departure Time of Disposition: 20:01 Disposition: Refer to Observation Clinical Impression: Ischemic colitis - Discharge Information Sepsis Event Note (ED) - Evaluation Sepsis Screening Result: Possible Sepsis Risk - Focused Exam Vital Signs: Vital Signs Temp Pulse Resp BP Pulse Ox 12/04/20 16:04 77 17 155/101 H 96 12/04/20 13:24 82 16 157/96 H 96 12/04/20 12:29 94 18 156/97 H 98 12/04/20 10:21 95 18 147/102 H 97 12/04/20 09:57 96.9 F 109 H 18 146/107 H 98 - My Orders Last 24 Hours: My Active Orders 12/04/20 10:09 Sodium Chloride 0.9% [Saline Flush] 10 ml FLUSH ASDIRECTED PRN Sodium Chloride 0.9% [Saline Flush] 2.5 ml FLUSH ASDIRECTED PRN Saline Lock Insert [OM.PC] Stat 12/04/20 12:27 Blood Culture x2 Reflex Set [OM.PC] Stat 12/04/20 12:58 CULTURE BLOOD [BC] Stat 12/04/20 13:10 CULTURE BLOOD [BC] Stat - Assessment/Plan Last 24 Hours: My Active Orders 12/04/20 10:09 Sodium Chloride 0.9% [Saline Flush] 10 ml FLUSH ASDIRECTED PRN Sodium Chloride 0.9% [Saline Flush] 2.5 ml FLUSH ASDIRECTED PRN Saline Lock Insert [OM.PC] Stat 12/04/20 12:27 Blood Culture x2 Reflex Set [OM.PC] Stat 12/04/20 12:58 CULTURE BLOOD [BC] Stat 12/04/20 13:10 CULTURE BLOOD [BC] Stat
[2020-12-04 11:05] LABS: CARBON DIOXIDE,CO2 30.3 mmol/L (21.0-32.0); POTASSIUM,K 3.4 mmol/L (3.5-5.1)
--- NOTE | 2020-12-04 12:25 | CT ---
INDICATION: Generalized abdominal pain; bloody stools . Comparison: None. TECHNIQUE: CT abdomen and pelvis with intravenous contrast; coronal and sagittal reformats. FINDINGS: Diffuse thickening involving the wall of the entire descending colon and the sigmoid colon in the distribution of the inferior mesenteric artery most likely representing ischemic colitis. No pneumoperitoneum. No evidence of pneumatosis. Mild diffuse fatty infiltration of the liver. No focal hepatic or splenic pathology. No pancreatic pathology. Gallbladder is unremarkable. No adrenal pathology. No kidney stones or obstructive uropathy . No retroperitoneal lymphadenopathy. Retro aortic left renal vein with absent anterior component; normal variant. Appendix is not clearly visualized; no inflammatory changes surrounding the cecum. Tiny amount of free fluid identified within the pelvic peritoneal cavity. Splenic vein, superior mesenteric vein and the portal vein are unremarkable. Celiac axis and superior mesenteric arteries are unremarkable. Inferior mesenteric artery appears unremarkable. No abnormal intra pulmonary nodular densities through the lung bases. No evidence of pleural effusion . Impression: 1. Colitis involving the left colon and the sigmoid colon in the distribution of the inferior mesenteric artery; rule out ischemic colitis. 2. Mild diffuse fatty infiltration of the liver. 3. Negative CT abdomen and pelvis with intravenous contrast otherwise. Please note that all CT scans at this facility use dose modulation, iterative reconstruction, and/or weight-based dosing when appropriate to reduce radiation dose to as low as reasonably achievable. Dictated by Manuel Terry MD @ 12/04/2020 12:22:[address] Manuel Terry @ Dec 04 2020 12:22PM
[2020-12-04] MEDS ORDERED: Piperacillin/Tazobactam 3.375 GM in Sodium Chloride 0.9% 50 ML IV ONE (12:34)
[2020-12-04] MEDS ORDERED: Iopamidol 755 MG/ML 500 ML Multipack Bottle IVPUSH STA (13:57)
--- NOTE | 2020-12-04 17:54 | PCM.EKG ---
#1 Interpretation EKG Date: 12/04/20 Time: 12:49 Rhythm: NSR Rate (Beats/Min): 66 [place]: Normal P-Wave: Present QRS: Normal ST-T: Normal QT: Normal Comparison: No Change (11/19/19) EKG Interpretation Comments: Sinus Rhythm
--- NOTE | 2020-12-04 18:17 | PCM.HP.2 ---
<Vandana Olivares - Last Filed: 12/04/20 19:44> H&P History of Present Illness - General Date of Service: 12/04/20 Admit Problem/Dx: Admission Diagnosis/Problem Admission Diagnosis/Problem Ischemic colitis - History of Present Illness Initial Comments - Free Text/Narative: 45-year-old female with a history of type 1 diabetes, GERD, H. pylori, C. difficile in 2018 presents to the ER with complaints of abdominal discomfort and bloody stools. Patient was constipated this weekend and spent extended periods on the toilet and had multiple bloody bowel movements. She has since had generalized abdominal discomfort and cramping with associated nausea, and maroon-colored stools. No vomiting. Patient treated pain with hydrocodone providing mild relief. Patient denies bright red blood per rectum, fever, chills, lightheadedness, syncope, chest pain, palpitations or shortness of breath. Denies dysuria or hematuria. Tolerating p.o. intake. ER course: On exam she had generalized tenderness in all 4 quadrants, negative rebound. Hemoglobin 14.9. Hemoccult positive. Blood pressure 135/101. Pulse 77. Was tachycardic. Lactate 3.7. Repeat lactic 1.9. INR 0.96. Sodium 133. Potassium 3.4. Chloride 92. Bilirubin 1.2. AST 142. Alk phos 132. Lipase 42. Blood glucose 271. Blood cultures pending. Normal saline at 125 mL/h.. CT abdomen shows ischemic colitis in the descending colon and sigmoid colon in the distribution of the inferior mesenteric artery. Patient typed and screened. Zosyn 3.375 g. Morphine 4 mg. Zofran. Consulted IR at [facility] who stated this patient would likely be admitted to hospitalist and IR will be consulted if needed. They will attempt to locate the source of the ischemia via colonoscopy. They are currently full and awaiting discharges later this afternoon. Transfer is pending patient will be accepted after a bed opens up. Patient will be admitted here until he is transferred. NPO. Past medical history: Type I DM, HTN, GERD, chronic constipation, hemorrhoids, H. pylori, C. difficile 2018, irritable bowel syndrome, hypothyroidism, restless leg syndrome, fibromyalgia. EGD by Dr. Mayo showed H. pylori infection associ ated with gastrointestinal metaplasia of the stomach. H. pylori eradicated. Home medications: Clobetasol 15 g TOP bid prn. Levothyroxine 100 mcg daily. Insulin pump NovoLog, 40 units daily. Pramipexole 0.125 mg bedtime. Harrison 325- 5 mg. Clonazepam 1 mg daily prn. Flonase. Lisinopril 10 mg daily. Allergies: Codeine causes itching and hives. Fluoxetine caused confusion. Meperidine causes itching.. Augmentin causes rash. Duloxetine. Surgical history: Hysterectomy. Colonoscopy. EGD. Spinal fusion C5-C6. Family history: Mother had melanoma and from [place] in her fifties. No family history of colorectal cancer. Social history: Quit smoking 12 years ago. Half a pack per day for 30 years prior to that. Drinks alcohol socially. Denies drug use. Lives at home with her and children. CODE STATUS: Full code. abdomen Pain Score (Numeric/FACES): 7 - Related Data Allergies/Adverse Reactions: Allergies Allergy/AdvReac Type Severity Reaction Status Date / Time codeine Allergy Itching Verified 12/04/20 18:28 fluoxetine Allergy Confusion Verified 12/04/20 18:28 meperidine HCl [From Demerol] Allergy Hives/reddn Verified 12/04/20 18:28 ess/swellin g Flu Mist Allergy Swelling Uncoded 12/04/20 18:28 Home Medications: Home Meds Clobetasol [Clobetasol Propionate 0.05%] 15 gm TOP BID PRN 09/29/13 [History] Insulin Aspart [NovoLOG] 40 unit SUBCUT ASDIRECTED 01/19/15 [History] Acetaminophen/HYDROcodone [Harrison 325-5 MG] 1 tab PO BID PRN 11/13/19 [History] clonazePAM [Clonazepam] 0.5 - 1 tab PO DAILY PRN 11/13/19 [History] Fluticasone Propionate [Flonase Allergy Relief] 1 spray NS DAILY PRN 11/19/19 [History] Chlorthalidone 25 mg PO DAILY 12/05/20 [History] Citalopram [Citalopram HBr] 10 mg PO DAILY 12/05/20 [History] Levothyroxine [Synthroid] 100 mcg PO SUTUWETHSA@0730 12/05/20 [History] Levothyroxine [Synthroid] 150 mcg PO MOFR@0730 12/05/20 [History] Meloxicam 15 mg PO DAILY PRN 12/05/20 [History] Pramipexole [Mirapex] 0.125 mg PO BEDTIME 12/05/20 [History] lisinopriL [Lisinopril] 20 mg PO DAILY 12/05/20 [History] Potassium Chloride 20 meq PO DAILY 7 Days #7 tablet.er 12/07/20 [Rx] Vancomycin [Vancocin 125 MG Capsule] 125 mg PO Q6HR 10 Days #40 cap 12/07/20 [Rx] Past Medical History HEENT History: Reports: Other (See Below) Other HEENT History: wears glasses Cardiovascular History: Reports: Hypertension Respiratory History: Reports: None Other Respiratory History: Former smoker QUIT '2009 Gastrointestinal History: Reports: Chronic Constipation, Colon Polyp, GERD, Hemorrhoids, Helicobacter Pylori, Irritable Bowel Syndrome, Other (See Below) Other Gastrointestinal History: hx of C-Diff in 2018 Genitourinary History: Reports: None Other Genitourinary History: history of yeast infections [employer] History: Reports: Musculoskeletal History: Reports: Arthritis, Back Pain, Chronic, Fibromyalgia, Neck Pain, Chronic Neurological History: Reports: Concussion, Headaches, Chronic, Migraines, Other (See Below) Other Neuro History: hx of motion sickness, has Restless Leg Syndrome Psychiatric History: Reports: Anxiety, Depression Endocrine/Metabolic History: Reports: Diabetes, Type I, Hypothyroidism, IDDM Other Endocrine/Metabolic History: Hypothyroidism 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: [employer] Hematologic History: Reports: None Immunologic History: Reports: None Oncologic (Cancer) History: Reports: None Dermatologic History: Reports: Psoriasis - Infectious Disease History Infectious Disease History: Reports: C-Difficile, Chicken Pox, Shingles - Past Surgical History Head Surgeries/Procedures: Reports: None HEENT Surgical History: Reports: Adenoidectomy, Tonsillectomy Other HEENT Surgeries/Procedures: [place] teeth extracted GI Surgical History: Reports: Colonoscopy, EGD Female Surgical History: Reports: Section, Hysterectomy, Tubal Ligation Other Female Surgeries/Procedures: Laparoscopy, Hysteroscopy, Essure Procedure Neurological Surgical History: Reports: C-Spine, Spinal Fusion Other Neurological Surgeries/Procedures: cervical fusion, C5-6 Social & Family History - Family History Family Medical History: No Pertinent Family History - Tobacco Use Tobacco Use Status *Q: Never Tobacco User - Caffeine Use Caffeine Use: Reports: None - Recreational Drug Use Recreational Drug Use: No H&P Review of Systems - Review of Systems: Review Of Systems: Comprehensive ROS is negative, except as noted in HPI. Exam - Exam Exam: See Below - Vital Signs Vital Signs: Last Vital Signs Temp 96.9 F 12/04/20 09:57 Pulse 82 12/04/20 17:37 Resp 16 12/04/20 17:37 BP 146/89 H 12/04/20 17:37 Pulse Ox 98 12/04/20 17:37 Weight: 74.843 kg - Exam General: Alert, Oriented, Cooperative HEENT: Conjunctiva Clear, EOMI. No: Scleral Icterus Neck: Supple. No: Thyromegaly Lungs: Clear to Auscultation Cardiovascular: Regular Rate, Regular Rhythm GI/Abdominal Exam: No Distention, No Mass, Tender. No: Guarding, Rigid, Rebound Extremities: Normal Inspection. No: No Pedal Edema, Joint Swelling, Marquita's Sign, Leg Pain Peripheral Pulses: 2+: Dorsalis Pedis (L), Dorsalis Pedis (R) Neurological: Cranial Nerves Intact, Strength Equal Bilateral, Normal Gait, Normal Speech Neuro Extensive - Mental Status: Alert, Oriented x3 - Patient Data Lab Results Last 24 hrs: Laboratory Results - last 24 hr 12/04/20 12/04/20 12/04/20 Range/Units 10:16 10:16 10:16 WBC 8.33 (4.0-11.0) K/uL RBC 3.84 L (4.30-5.90) M/uL Hgb 14.9 (12.0-16.0) g/dL Hct 41.2 (36.0-46.0) % MCV 107.3 H (80.0-98.0) fL MCH 38.8 H (27.0-32.0) pg MCHC 36.2 (31.0-37.0) g/dL RDW Std Deviation 61.7 (28.0-62.0) fl RDW Coeff of Juan 16 H (11.0-15.0) % Plt Count 169 (150-400) K/uL MPV 10.70 (7.40-12.00) fL Neut % (Auto) 74.3 (48.0-80.0) % Lymph % (Auto) 15.4 L (16.0-40.0) % [place] % (Auto) 9.4 (0.0-15.0) % Eos % (Auto) 0.5 (0.0-7.0) % Baso % (Auto) 0.4 (0.0-1.5) % Neut # (Auto) 6.2 H (1.4-5.7) K/uL Lymph # (Auto) 1.3 (0.6-2.4) K/uL [place] # (Auto) 0.8 (0.0-0.8) K/uL Eos # (Auto) 0.0 (0.0-0.7) K/uL Baso # (Auto) 0.0 (0.0-0.1) K/uL Nucleated RBC % 0.0 /100WBC Nucleated RBCs # 0 K/uL INR 0.96 Sodium 133 L (136-145) mmol/L Potassium 3.4 L (3.5-5.1) mmol/L Chloride 92 L (98-107) mmol/L Carbon Dioxide 30.3 (21.0-32.0) mmol/L BUN 9 (7.0-18.0) mg/dL Creatinine 1.0 (0.6-1.0) mg/dL Est Cr Clr Drug Dosing 61.35 mL/min Estimated GFR (MDRD) 60.0 ml/min Glucose 262 H (74-106) mg/dL POC Glucose (70-99) mg/dL Lactic Acid (0.4-2.0) mmol/L Calcium 8.8 (8.5-10.1) mg/dL Total Bilirubin 1.2 H (0.2-1.0) mg/dL AST 142 H (15-37) IU/L ALT 62 (14-63) IU/L Alkaline Phosphatase 132 H (46-116) U/L Total Protein 6.8 (6.4-8.2) g/dL Albumin 3.3 L (3.4-5.0) g/dL Globulin 3.5 (2.6-4.0) g/dL Albumin/Globulin Ratio 0.9 (0.9-1.6) Lipase 42 L (73-393) U/L SARS-CoV-2 RNA (ADAM) (NEGATIVE) Blood Type Antibody Screen 12/04/20 12/04/20 12/04/20 Range/Units 10:16 10:16 10:23 WBC (4.0-11.0) K/uL RBC (4.30-5.90) M/uL Hgb (12.0-16.0) g/dL Hct (36.0-46.0) % MCV (80.0-98.0) fL MCH (27.0-32.0) pg MCHC (31.0-37.0) g/dL RDW Std Deviation (28.0-62.0) fl RDW Coeff of Juan (11.0-15.0) % Plt Count (150-400) K/uL MPV (7.40-12.00) fL Neut % (Auto) (48.0-80.0) % Lymph % (Auto) (16.0-40.0) % [place] % (Auto) (0.0-15.0) % Eos % (Auto) (0.0-7.0) % Baso % (Auto) (0.0-1.5) % Neut # (Auto) (1.4-5.7) K/uL Lymph # (Auto) (0.6-2.4) K/uL [place] # (Auto) (0.0-0.8) K/uL Eos # (Auto) (0.0-0.7) K/uL Baso # (Auto) (0.0-0.1) K/uL Nucleated RBC % /100WBC Nucleated RBCs # K/uL INR Sodium (136-145) mmol/L Potassium (3.5-5.1) mmol/L Chloride (98-107) mmol/L Carbon Dioxide (21.0-32.0) mmol/L BUN (7.0-18.0) mg/dL Creatinine (0.6-1.0) mg/dL Est Cr Clr Drug Dosing mL/min Estimated GFR (MDRD) ml/min Glucose (74-106) mg/dL POC Glucose 271 H (70-99) mg/dL Lactic Acid 3.7 H* (0.4-2.0) mmol/L Calcium (8.5-10.1) mg/dL Total Bilirubin (0.2-1.0) mg/dL AST (15-37) IU/L ALT (14-63) IU/L Alkaline Phosphatase (46-116) U/L Total Protein (6.4-8.2) g/dL Albumin (3.4-5.0) g/dL Globulin (2.6-4.0) g/dL Albumin/Globulin Ratio (0.9-1.6) Lipase (73-393) U/L SARS-CoV-2 RNA (ADAM) (NEGATIVE) Blood Type B POSITIVE Antibody Screen NEGATIVE 12/04/20 12/04/20 12/04/20 Range/Units 12:14 14:19 15:37 WBC (4.0-11.0) K/uL RBC (4.30-5.90) M/uL Hgb (12.0-16.0) g/dL Hct (36.0-46.0) % MCV (80.0-98.0) fL MCH (27.0-32.0) pg MCHC (31.0-37.0) g/dL RDW Std Deviation (28.0-62.0) fl RDW Coeff of Juan (11.0-15.0) % Plt Count (150-400) K/uL MPV (7.40-12.00) fL Neut % (Auto) (48.0-80.0) % Lymph % (Auto) (16.0-40.0) % [place] % (Auto) (0.0-15.0) % Eos % (Auto) (0.0-7.0) % Baso % (Auto) (0.0-1.5) % Neut # (Auto) (1.4-5.7) K/uL Lymph # (Auto) (0.6-2.4) K/uL [place] # (Auto) (0.0-0.8) K/uL Eos # (Auto) (0.0-0.7) K/uL Baso # (Auto) (0.0-0.1) K/uL Nucleated RBC % /100WBC Nucleated RBCs # K/uL INR Sodium (136-145) mmol/L Potassium (3.5-5.1) mmol/L Chloride (98-107) mmol/L Carbon Dioxide (21.0-32.0) mmol/L BUN (7.0-18.0) mg/dL Creatinine (0.6-1.0) mg/dL Est Cr Clr Drug Dosing mL/min Estimated GFR (MDRD) ml/min Glucose (74-106) mg/dL POC Glucose (70-99) mg/dL Lactic Acid 2.1 H* 1.9 (0.4-2.0) mmol/L Calcium (8.5-10.1) mg/dL Total Bilirubin (0.2-1.0) mg/dL AST (15-37) IU/L ALT (14-63) IU/L Alkaline Phosphatase (46-116) U/L Total Protein (6.4-8.2) g/dL Albumin (3.4-5.0) g/dL Globulin (2.6-4.0) g/dL Albumin/Globulin Ratio (0.9-1.6) Lipase (73-393) U/L SARS-CoV-2 RNA (ADAM) NEGATIVE (NEGATIVE) Blood Type Antibody Screen Result Diagrams: 12/04/20 10:16 12/04/20 10:16 Sepsis Event Note - Evaluation Sepsis Screening Result: Possible Sepsis Risk - Focused Exam Vital Signs: Vital Signs Temp Pulse Resp BP Pulse Ox 12/04/20 17:37 82 16 146/89 H 98 12/04/20 16:59 80 16 146/90 H 97 12/04/20 16:04 77 17 155/101 H 96 12/04/20 13:24 82 16 157/96 H 96 12/04/20 12:29 94 18 156/97 H 98 12/04/20 10:21 95 18 147/102 H 97 12/04/20 09:57 96.9 F 109 H 18 146/107 H 98 - Problem List (1) Ischemic colitis SNOMED Code(s): 29286150 ICD Code: K55.9 - VASCULAR DISORDER OF INTESTINE, UNSPECIFIED Status: Acute Problem List Initiated/Reviewed/Updated: Yes Orders Last 24hrs: Active Orders 24 hr Category Date Time Status Admission Status [Patient Status] [ADT] Stat ADT 12/04/20 16:59 Active Blood Glucose Check, Bedside [RC] ONETIME Care 12/04/20 09:57 Active CULTURE BLOOD [BC] Stat Lab 12/04/20 12:58 Received CULTURE BLOOD [BC] Stat Lab 12/04/20 13:10 Received REFLEX LACTIC ACID YES OR NO [CHEM] Routine Lab 12/04/20 15:12 Received Sodium Chloride 0.9% [Normal Saline] 1,000 ml Med 12/04/20 16:25 Active IV STAT Sodium Chloride 0.9% [Saline Flush] Med 12/04/20 10:09 Active 10 ml FLUSH ASDIRECTED PRN Sodium Chloride 0.9% [Saline Flush] Med 12/04/20 10:09 Active 2.5 ml FLUSH ASDIRECTED PRN Blood Culture x2 Reflex Set [OM.PC] Stat Oth 12/04/20 12:27 Ordered Saline Lock Insert [OM.PC] Stat Oth 12/04/20 10:09 Ordered Medication Orders Sodium Chloride (Normal Saline) 1,000 mls @ 150 mls/hr IV STAT ONE Stop: 12/04/20 23:04 Last Admin: 12/04/20 16:54 Dose: 150 mls/hr Documented by: KYLE Sodium Chloride (Sodium Chloride 0.9% 10 Ml Syringe) 10 ml FLUSH ASDIRECTED PRN PRN Reason: Keep Vein Open Last Admin: 12/04/20 10:16 Dose: 10 ml Documented by: GERRY Sodium Chloride (Sodium Chloride 0.9% 2.5 Ml Syringe) 2.5 ml FLUSH ASDIRECTED PRN PRN Reason: Keep Vein Open Last Admin: 12/04/20 10:17 Dose: 2.5 ml Documented by: GERRY Assessment/Plan Comment:: 45-year-old female with history of DM 1, GERD, H. pylori and hypothyroidism has Hemoccult positive blood and generalized tenderness, CT scan shows ischemic colitis. Admit patient for observation. Currently pending transfer to [facility]. NPO. Continue zosyn. LR at 125 mL/h. Protonix 40 bid. Zofran. Accu-Cheks every 6 hours. Insulin sliding scale. Home insulin pump NovoLog 40 units daily. Hold Harrison. Continue home medications levothyroxine, pramipexole. Hold lisinopril. <Lizette Hector - Last Filed: 12/11/20 13:57> H&P History of Present Illness - General Admit Problem/Dx: Admission Diagnosis/Problem Admission Diagnosis/Problem Ischemic colitis Exam - Vital Signs Vital Signs: Last Vital Signs Temp 36.2 C 08/19/21 14:24 Pulse 72 12/07/20 14:24 Resp 18 12/07/20 14:24 BP 136/78 12/07/20 14:24 Pulse Ox 96 12/07/20 14:24 - Patient Data Lab Results Last 24 hrs: Laboratory Results - last 24 hr 12/04/20 12/05/20 Range/Units 21:44 04:43 POC Glucose 97 155 H (70-99) mg/dL Result Diagrams: 12/07/20 05:25 12/07/20 05:25 Assessment/Plan Comment:: I performed a history and physical exam of the patient and discussed management with resident. I have reviewed the residents note and agree with documented f indings and plan unless otherwise specified in my note.'
[2020-12-04] MEDS ORDERED: Ondansetron 4 MG/2 ML SDV IVPUSH PRN (18:45)
[2020-12-04] MEDS ORDERED: Acetaminophen 325 MG Tab PO PRN (18:45)
[2020-12-04] MEDS ORDERED: Albuterol/Ipratropium 3.0-0.5 MG/3 ML Neb Soln NEB PRN (18:45)
[2020-12-04] MEDS ORDERED: 50% Dextrose in Water 50 ML Syringe IVPUSH PRN (18:52)
[2020-12-04] MEDS ORDERED: Glucagon,Human Recombinant 1 MG Vial IM PRN (18:52)
[2020-12-04] MEDS ORDERED: Insulin Aspart 100 Units/ML 3 ML Pen SUBCUT SCH (18:52)
[2020-12-04] MEDS ORDERED: Lactated Ringers 1,000 ML IV SCH (19:45)
[2020-12-04] MEDS: Piperacillin/Tazobactam 3.375 GM in Sodium Chloride 0.9% 50 ML IV SCH (20:31)
[2020-12-04] MEDS ORDERED: Pantoprazole 40 MG Vial IV SCH (21:00)
[2020-12-04] MEDS: Morphine 2 MG/ML SYRINGE IVPUSH PRN (21:58)
[2020-12-04] MEDS ORDERED: Lactated Ringers 1,000 ML IV ONE (22:22)
[2020-12-04] MEDS: Dextrose 5%-Lactated Ringers 1,000 ML IV SCH (23:52)
[2020-12-05] MEDS: Piperacillin/Tazobactam 3.375 GM in Sodium Chloride 0.9% 50 ML IV SCH ×3 (04:37→20:43)
[2020-12-05 06:34] LABS: BLOOD UREA NITROGEN,BUN 5 mg/dL (7.0-18.0); CARBON DIOXIDE,CO2 31.3 mmol/L (21.0-32.0); CHLORIDE,CL 103 mmol/L (98-107); GLUCOSE RANDOM 143 mg/dL (74-106); POTASSIUM,K 2.9 mmol/L (3.5-5.1); SODIUM,NA 139 mmol/L (136-145)
[2020-12-05] MEDS: Dextrose 5%-Lactated Ringers 1,000 ML IV SCH ×2 (08:44→17:19)
[2020-12-05] MEDS ORDERED: Pantoprazole 40 MG Vial IV SCH (09:00)
[2020-12-05] MEDS ORDERED: Potassium Chloride Riders 40 MEQ in Premix Bag 1 BAG IV ONE ×2 (09:15→17:15)
[2020-12-05] MEDS: Pantoprazole 40 MG in Sodium Chloride 0.9% 10 ML IV SCH ×2 (09:23→20:33)
[2020-12-05] MEDS: Levothyroxine 100 MCG Tab PO SCH (10:55)
[2020-12-05] MEDS: Morphine 2 MG/ML SYRINGE IVPUSH PRN ×3 (10:55→20:41)
--- NOTE | 2020-12-05 14:20 | CT ---
CLINICAL INFORMATION: 45-year-old with descending and sigmoid colitis noted on prior imaging study, concern for possible underlying ischemic process. TECHNIQUE: Noncontrast, arterial, and venous phase contrast enhanced CT of the abdomen and pelvis were obtained. No enteric contrast was administered and therefore the study has decreased sensitivity for detection of bowel pathology. 3D and/or MIP angiographic reconstructions were performed on a separate independent workstation with concurrent supervision of the image post processing in order to further delineate the angiographic anatomy for accurate interpretation. Contrast: 100 mL of Isovue 370 intravenous contrast was injected uneventfully prior to image acquisition. Radiation Dose Estimate (Total Exam DLP): 106.4 mGy-cm. COMPARISON: CT abdomen and pelvis 12/04/2020. FINDINGS: CT Angiography Findings: Abdominal aorta: Normal in course and caliber. No aneurysm or dissection. Celiac axis: Patent. Superior mesenteric artery: Patent. Inferior mesenteric artery: Patent. LEFT Renal: Patent. RIGHT Renal: Patent. RIGHT lower extremity: Common iliac artery: Patent. Internal iliac artery: Patent. External iliac artery: Patent. Common femoral artery: Patent. LEFT lower extremity : Common iliac artery: Patent. Internal iliac artery: Patent. External iliac artery: Patent. Common femoral artery: Patent. Visceral Findings: Lower Chest: Lung Bases: Small bilateral pleural effusions subjacent passive atelectasis. Interlobular septal thickening at the lung bases likely reflecting interstitial edema. Heart/Pericardium: Unremarkable. Abdomen/Pelvis: Liver: Demonstrates diffusely decreased attenuation consistent with fatty infiltration. Gallbladder: Unremarkable. Spleen: Unremarkable. Adrenal glands: Unremarkable. Kidneys: Unremarkable. Retroaortic left renal vein Pancreas: Unremarkable. Lymph nodes: No retroperitoneal, mesenteric, inguinal, or pelvic adenopathy by CT criteria. Bowel: No bowel obstruction. Mild diffuse wall thickening involving the descending and sigmoid colon, the appearance of which is stable to prior examination. No evidence for mesenteric ischemia Urinary bladder: Limited evaluation due to underdistention. No gross pathology. Reproductive structures: Status post hysterectomy. 1.7 cm left corpus luteal cyst within the left ovary No abdominal/pelvis ascites or free intraperitoneal air. Musculoskeletal: Visualized osseous structures demonstrate mild degenerative changes in the spine. IMPRESSION: 1. Colitis involving the descending and sigmoid colon, stable in appearance to prior examination. Inferior mesenteric artery and branches are patent. No evidence for arterial mesenteric ischemia. 2. Hepatic steatosis. Please note that all CT scans at this facility use dose modulation, iterative reconstruction, and/or weight-based dosing when appropriate to reduce radiation dose to as low as reasonably achievable. Dictated by Junaid Oneal MD @ 12/05/2020 2:18:[address] Junaid Oneal @ Dec 05 2020 2:18PM
--- NOTE | 2020-12-05 15:31 | PCM.PN ---
- General Info Date of Service: 12/05/20 Admission Dx/Problem (Free Text): Admission Diagnosis/Problem Admission Diagnosis/Problem Ischemic colitis Subjective Update: 45-year-old female with history of type 1 diabetes mellitus, H pylori was admitted for ischemic colitis. Patient is n.p.o. Patient had elevated lactic acid and received 4 boluses. 1 LR bolus last night. Lactic levels normal. Patient's glucose is managed on her insulin pump using sliding scale. This morning patient states that her pain is better and her abdomen is nontender but it feels achy. No bowel movement. No blood per rectum. Patient was scheduled to be transferred to [facility] but they do not have a bed available. Patient is currently on D5 LR at 125. Patient's last bloody bowel movement was 12/04 in the morning. - Review of Systems General: Reports: No Symptoms HEENT: Reports: No Symptoms Pulmonary: Reports: No Symptoms Cardiovascular: Reports: No Symptoms Gastrointestinal: Reports: Abdominal Pain. Denies: Diarrhea, Difficulty Swallowing, Nausea, Vomiting Genitourinary: Reports: No Symptoms Musculoskeletal: Reports: No Symptoms Skin: Reports: No Symptoms Neurological: Reports: No Symptoms - Patient Data Vitals - Most Recent: Last Vital Signs Temp 97.2 F 12/05/20 12:00 Pulse 68 12/05/20 12:00 Resp 16 12/05/20 12:00 BP 138/82 12/05/20 12:00 Pulse Ox 96 12/05/20 12:00 Weight - Most Recent: 169 lb 8 oz I&O - Last 24 Hours: Intake & Output 12/05/20 12/05/20 12/05/20 06:59 14:59 22:59 Intake Total 1728 Output Total 1200 Balance 528 Lab Results Last 24 Hours: Laboratory Results - last 24 hr 12/04/20 12/04/20 12/04/20 Range/Units 10:23 15:37 19:27 WBC (4.0-11.0) K/uL RBC (4.30-5.90) M/uL Hgb (12.0-16.0) g/dL Hct (36.0-46.0) % MCV (80.0-98.0) fL MCH (27.0-32.0) pg MCHC (31.0-37.0) g/dL RDW Std Deviation (28.0-62.0) fl RDW Coeff of Juan (11.0-15.0) % Plt Count (150-400) K/uL MPV (7.40-12.00) fL Neut % (Auto) (48.0-80.0) % Lymph % (Auto) (16.0-40.0) % Nolan % (Auto) (0.0-15.0) % Eos % (Auto) (0.0-7.0) % Baso % (Auto) (0.0-1.5) % Neut # (Auto) (1.4-5.7) K/uL Lymph # (Auto) (0.6-2.4) K/uL Nolan # (Auto) (0.0-0.8) K/uL Eos # (Auto) (0.0-0.7) K/uL Baso # (Auto) (0.0-0.1) K/uL Nucleated RBC % /100WBC Nucleated RBCs # K/uL Sodium (136-145) mmol/L Potassium (3.5-5.1) mmol/L Chloride (98-107) mmol/L Carbon Dioxide (21.0-32.0) mmol/L BUN (7.0-18.0) mg/dL Creatinine (0.6-1.0) mg/dL Est Cr Clr Drug Dosing mL/min Estimated GFR (MDRD) ml/min Glucose (74-106) mg/dL POC Glucose 271 H (70-99) mg/dL Lactic Acid 1.9 2.2 H* (0.4-2.0) mmol/L Calcium (8.5-10.1) mg/dL Total Bilirubin (0.2-1.0) mg/dL AST (15-37) IU/L ALT (14-63) IU/L Alkaline Phosphatase (46-116) U/L Total Protein (6.4-8.2) g/dL Albumin (3.4-5.0) g/dL Globulin (2.6-4.0) g/dL Albumin/Globulin Ratio (0.9-1.6) 12/05/20 12/05/20 12/05/20 Range/Units 01:00 05:35 05:35 WBC 5.51 (4.0-11.0) K/uL RBC 2.92 L (4.30-5.90) M/uL Hgb 11.2 L (12.0-16.0) g/dL Hct 31.9 L (36.0-46.0) % MCV 109.2 H (80.0-98.0) fL MCH 38.4 H (27.0-32.0) pg MCHC 35.1 (31.0-37.0) g/dL RDW Std Deviation 61.1 (28.0-62.0) fl RDW Coeff of Juan 16 H (11.0-15.0) % Plt Count 141 L (150-400) K/uL MPV 10.40 (7.40-12.00) fL Neut % (Auto) 60.2 (48.0-80.0) % Lymph % (Auto) 30.1 (16.0-40.0) % Nolan % (Auto) 6.9 (0.0-15.0) % Eos % (Auto) 2.4 (0.0-7.0) % Baso % (Auto) 0.4 (0.0-1.5) % Neut # (Auto) 3.3 (1.4-5.7) K/uL Lymph # (Auto) 1.7 (0.6-2.4) K/uL Nolan # (Auto) 0.4 (0.0-0.8) K/uL Eos # (Auto) 0.1 (0.0-0.7) K/uL Baso # (Auto) 0.0 (0.0-0.1) K/uL Nucleated RBC % 0.0 /100WBC Nucleated RBCs # 0 K/uL Sodium 139 (136-145) mmol/L Potassium 2.9 L (3.5-5.1) mmol/L Chloride 103 (98-107) mmol/L Carbon Dioxide 31.3 (21.0-32.0) mmol/L BUN 5 L (7.0-18.0) mg/dL Creatinine 0.9 (0.6-1.0) mg/dL Est Cr Clr Drug Dosing 68.16 mL/min Estimated GFR (MDRD) > 60.0 ml/min Glucose 143 H (74-106) mg/dL POC Glucose (70-99) mg/dL Lactic Acid 1.0 (0.4-2.0) mmol/L Calcium 6.9 L (8.5-10.1) mg/dL Total Bilirubin 0.7 (0.2-1.0) mg/dL AST 75 H (15-37) IU/L ALT 40 (14-63) IU/L Alkaline Phosphatase 86 (46-116) U/L Total Protein 4.8 L (6.4-8.2) g/dL Albumin 2.3 L (3.4-5.0) g/dL Globulin 2.5 L (2.6-4.0) g/dL Albumin/Globulin Ratio 0.9 (0.9-1.6) Yair Results Last 24 Hours: Microbiology 12/04/20 13:10 Aerobic Blood Culture - Preliminary Blood - Venous - Lab Draw NO GROWTH AFTER 1 DAY Anaerobic Blood Culture - Preliminary NO GROWTH AFTER 1 DAY 12/04/20 12:58 Aerobic Blood Culture - Preliminary Blood - Venous NO GROWTH AFTER 1 DAY Anaerobic Blood Culture - Preliminary NO GROWTH AFTER 1 DAY Med Orders - Current: Current Medications Acetaminophen (Acetaminophen 325 Mg Tab) 650 mg PO Q4H PRN PRN Reason: Pain (Mild 1-3)/fever Albuterol/Ipratropium (Albuterol/Ipratropium 3.0-0.5 Mg/3 Ml Neb Soln) 3 ml NEB Q4HRRT PRN PRN Reason: Shortness Of Breath/wheezing Clonazepam (Clonazepam 1 Mg Tab) 1 - 2 mg PO DAILY PRN PRN Reason: Anxiety Dextrose/Water (50% Dextrose In Water 50 Ml Syringe) 50 ml IVPUSH ASDIRECTED PRN PRN Reason: Hypoglycemia Glucagon (Glucagon,Human Recombinant 1 Mg Vial) 1 mg IM ASDIRECTED PRN PRN Reason: Hypoglycemia Lactated Ringer's (Ringers, Lactated) 1,000 mls @ 125 mls/hr IV ASDIRECTED LESLIE Last Infusion: 12/04/20 22:55 Dose: 0 mls/hr Documented by: Piperacillin Sod/Tazobactam (Sod 3.375 gm/ Sodium Chloride) 50 mls @ 100 mls/hr IV Q8H LESILE Last Admin: 12/05/20 11:57 Dose: 100 mls/hr Documented by: Dextrose/Lactated Ringer's (Dextrose 5%-Lactated Ringers) 1,000 mls @ 125 mls/hr IV ASDIRECTED [facility] Last Admin: 12/05/20 08:44 Dose: 125 mls/hr Documented by: Pantoprazole Sodium 40 mg/ (Sodium Chloride) 10 mls @ 200 mls/hr IV Q12HR [facility] Last Admin: 12/05/20 09:23 Dose: 200 mls/hr Documented by: Levothyroxine Sodium (Levothyroxine 100 Mcg Tab) 100 mcg PO [id number] [facility] Last Admin: 12/05/20 10:55 Dose: 100 mcg Documented by: Levothyroxine Sodium (Levothyroxine 150 Mcg Tab) 150 mcg PO [id number]@0730 [facility] Morphine Sulfate (Morphine 2 Mg/Ml Syringe) 2 mg IVPUSH Q3H PRN PRN Reason: Pain Last Admin: 12/05/20 10:55 Dose: 2 mg Documented by: Ondansetron HCl (Ondansetron 4 Mg/2 Ml Sdv) 4 mg IVPUSH Q4H PRN PRN Reason: Nausea/Vomiting Sodium Chloride (Sodium Chloride 0.9% 10 Ml Syringe) 10 ml FLUSH ASDIRECTED PRN PRN Reason: Keep Vein Open Last Admin: 12/04/20 10:16 Dose: 10 ml Documented by: Sodium Chloride (Sodium Chloride 0.9% 2.5 Ml Syringe) 2.5 ml FLUSH ASDIRECTED PRN PRN Reason: Keep Vein Open Last Admin: 12/04/20 10:17 Dose: 2.5 ml Documented by: Discontinued Medications Sodium Chloride (Normal Saline) 1,000 mls @ 999 mls/hr IV STAT ONE Stop: 12/04/20 11:10 Last Admin: 12/04/20 10:17 Dose: 999 mls/hr Documented by: Sodium Chloride (Normal Saline) 1,000 mls @ 999 mls/hr IV STAT ONE Stop: 12/04/20 12:46 Last Admin: 12/04/20 12:28 Dose: 999 mls/hr Documented by: Piperacillin Sod/Tazobactam (Sod 3.375 gm/ Sodium Chloride) 50 mls @ 100 mls/hr IV ONETIME ONE Stop: 12/04/20 13:03 Last Admin: 12/04/20 13:07 Dose: 100 mls/hr Documented by: Sodium Chloride (Normal Saline) 1,000 mls @ 999 mls/hr IV STAT ONE Stop: 12/04/20 13:50 Last Admin: 12/04/20 13:07 Dose: 999 mls/hr Documented by: Sodium Chloride (Normal Saline) 1,000 mls @ 150 mls/hr IV STAT ONE Stop: 12/04/20 23:04 Last Admin: 12/04/20 16:54 Dose: 150 mls/hr Documented by: Lactated Ringer's (Ringers, Lactated) 1,000 mls @ 999 mls/hr IV BOLUS ONE Stop: 12/04/20 23:22 Last Admin: 12/04/20 22:54 Dose: 999 mls/hr Documented by: Potassium Chloride 40 meq/ (Premix) 100 mls @ 25 mls/hr IV ONETIME ONE Stop: 12/05/20 13:14 Last Admin: 12/05/20 09:24 Dose: 25 mls/hr Documented by: Insulin Aspart (Insulin Aspart 100 Units/Ml 3 Ml Pen) 0 unit [facility]; Protocol Last Admin: 12/05/20 08:17 Dose: Not Given Documented by: Iopamidol (Iopamidol 755 Mg/Ml 500 Ml Multipack Bottle) 100 ml IVPUSH ONETIME STA Stop: 12/04/20 13:58 Last Admin: 12/04/20 13:58 Dose: 100 ml Documented by: Morphine Sulfate (Morphine 4 Mg/Ml Syringe) 4 mg IVPUSH ONETIME ONE Stop: 12/04/20 10:11 Last Admin: 12/04/20 10:17 Dose: 4 mg Documented by: Morphine Sulfate (Morphine 4 Mg/Ml Syringe) 4 mg IVPUSH ONETIME ONE Stop: 12/04/20 12:52 Last Admin: 12/04/20 13:06 Dose: 4 mg Documented by: Morphine Sulfate (Morphine 4 Mg/Ml Syringe) 4 mg IVPUSH ONETIME ONE Stop: 12/04/20 16:37 Last Admin: 12/04/20 16:54 Dose: 4 mg Documented by: Ondansetron HCl (Ondansetron 4 Mg/2 Ml Sdv) 4 mg IVPUSH ONETIME ONE Stop: 12/04/20 10:11 Last Admin: 12/04/20 10:17 Dose: 4 mg Documented by: Pantoprazole Sodium (Pantoprazole 40 Mg Vial) 40 mg IV DAILY [facility] Pantoprazole Sodium (Pantoprazole 40 Mg Vial) 40 mg IV Q12HR [facility] Last Admin: 12/04/20 20:26 Dose: 40 mg Documented by: - Exam General: Alert, Oriented HEENT: Pupils Equal Neck: Supple Lungs: Clear to Auscultation. No: Crackles Cardiovascular: Regular Rate, Regular Rhythm GI/Abdominal Exam: Soft, No Distention, Tender (Tender only to deep palpation in all quadrants.). No: Guarding, Rigid, Rebound Extremities: Normal Inspection, No Pedal Edema. No: Leg Pain Peripheral Pulses: 2+: Dorsalis Pedis (L), Dorsalis Pedis (R) Skin: Warm, Dry, Intact Neurological: No New Focal Deficit - Patient Data Lab Results Last 24 hrs: Laboratory Results - last 24 hr 12/04/20 12/04/20 12/04/20 Range/Units 10:23 15:37 19:27 WBC (4.0-11.0) K/uL RBC (4.30-5.90) M/uL Hgb (12.0-16.0) g/dL Hct (36.0-46.0) % MCV (80.0-98.0) fL MCH (27.0-32.0) pg MCHC (31.0-37.0) g/dL RDW Std Deviation (28.0-62.0) fl RDW Coeff of Juan (11.0-15.0) % Plt Count (150-400) K/uL MPV (7.40-12.00) fL Neut % (Auto) (48.0-80.0) % Lymph % (Auto) (16.0-40.0) % Nolan % (Auto) (0.0-15.0) % Eos % (Auto) (0.0-7.0) % Baso % (Auto) (0.0-1.5) % Neut # (Auto) (1.4-5.7) K/uL Lymph # (Auto) (0.6-2.4) K/uL Nolan # (Auto) (0.0-0.8) K/uL Eos # (Auto) (0.0-0.7) K/uL Baso # (Auto) (0.0-0.1) K/uL Nucleated RBC % /100WBC Nucleated RBCs # K/uL Sodium (136-145) mmol/L Potassium (3.5-5.1) mmol/L Chloride (98-107) mmol/L Carbon Dioxide (21.0-32.0) mmol/L BUN (7.0-18.0) mg/dL Creatinine (0.6-1.0) mg/dL Est Cr Clr Drug Dosing mL/min Estimated GFR (MDRD) ml/min Glucose (74-106) mg/dL POC Glucose 271 H (70-99) mg/dL Lactic Acid 1.9 2.2 H* (0.4-2.0) mmol/L Calcium (8.5-10.1) mg/dL Total Bilirubin (0.2-1.0) mg/dL AST (15-37) IU/L ALT (14-63) IU/L Alkaline Phosphatase (46-116) U/L Total Protein (6.4-8.2) g/dL Albumin (3.4-5.0) g/dL Globulin (2.6-4.0) g/dL Albumin/Globulin Ratio (0.9-1.6) 12/05/20 12/05/20 12/05/20 Range/Units 01:00 05:35 05:35 WBC 5.51 (4.0-11.0) K/uL RBC 2.92 L (4.30-5.90) M/uL Hgb 11.2 L (12.0-16.0) g/dL Hct 31.9 L (36.0-46.0) % MCV 109.2 H (80.0-98.0) fL MCH 38.4 H (27.0-32.0) pg MCHC 35.1 (31.0-37.0) g/dL RDW Std Deviation 61.1 (28.0-62.0) fl RDW Coeff of Juan 16 H (11.0-15.0) % Plt Count 141 L (150-400) K/uL MPV 10.40 (7.40-12.00) fL Neut % (Auto) 60.2 (48.0-80.0) % Lymph % (Auto) 30.1 (16.0-40.0) % Nolan % (Auto) 6.9 (0.0-15.0) % Eos % (Auto) 2.4 (0.0-7.0) % Baso % (Auto) 0.4 (0.0-1.5) % Neut # (Auto) 3.3 (1.4-5.7) K/uL Lymph # (Auto) 1.7 (0.6-2.4) K/uL Nolan # (Auto) 0.4 (0.0-0.8) K/uL Eos # (Auto) 0.1 (0.0-0.7) K/uL Baso # (Auto) 0.0 (0.0-0.1) K/uL Nucleated RBC % 0.0 /100WBC Nucleated RBCs # 0 K/uL Sodium 139 (136-145) mmol/L Potassium 2.9 L (3.5-5.1) mmol/L Chloride 103 (98-107) mmol/L Carbon Dioxide 31.3 (21.0-32.0) mmol/L BUN 5 L (7.0-18.0) mg/dL Creatinine 0.9 (0.6-1.0) mg/dL Est Cr Clr Drug Dosing 68.16 mL/min Estimated GFR (MDRD) > 60.0 ml/min Glucose 143 H (74-106) mg/dL POC Glucose (70-99) mg/dL Lactic Acid 1.0 (0.4-2.0) mmol/L Calcium 6.9 L (8.5-10.1) mg/dL Total Bilirubin 0.7 (0.2-1.0) mg/dL AST 75 H (15-37) IU/L ALT 40 (14-63) IU/L Alkaline Phosphatase 86 (46-116) U/L Total Protein 4.8 L (6.4-8.2) g/dL Albumin 2.3 L (3.4-5.0) g/dL Globulin 2.5 L (2.6-4.0) g/dL Albumin/Globulin Ratio 0.9 (0.9-1.6) Result Diagrams: 12/05/20 05:35 12/05/20 15:15 Yair Results Last 24 hrs: Microbiology 12/04/20 13:10 Aerobic Blood Culture - Preliminary Blood - Venous - Lab Draw NO GROWTH AFTER 1 DAY Anaerobic Blood Culture - Preliminary NO GROWTH AFTER 1 DAY 12/04/20 12:58 Aerobic Blood Culture - Preliminary Blood - Venous NO GROWTH AFTER 1 DAY Anaerobic Blood Culture - Preliminary NO GROWTH AFTER 1 DAY Sepsis Event Note - Evaluation Sepsis Screening Result: No Definite Risk - Focused Exam Vital Signs: Vital Signs Temp Pulse Resp BP BP Pulse Ox 12/05/20 12:00 97.2 F 68 16 138/82 96 12/05/20 08:00 97.3 F 85 16 129/91 H 98 12/05/20 04:35 98.1 F 68 15 151/84 H 96 - Problem List & Annotations (1) Ischemic colitis SNOMED Code(s): 59430097 Code(s): K55.9 - VASCULAR DISORDER OF INTESTINE, UNSPECIFIED Status: Acute Current Visit: Yes - Problem List Review Problem List Initiated/Reviewed/Updated: Yes - My Orders Last 24 Hours: My Active Orders 12/04/20 Dinner Nothing per Oral Now Diet [DIET] 12/04/20 18:45 Ambulate [RC] ASDIRECTED Blood Glucose Check, Bedside [RC] Q6HR Oxygen Therapy [RC] PRN VTE/DVT Education [RC] PER UNIT ROUTINE Vital Signs [RC] Q4H Acetaminophen [TylenoL] 650 mg PO Q4H PRN Albuterol/Ipratropium [DuoNeb 3.0-0.5 MG/3 ML] 3 ml NEB Q4HRRT PRN Ondansetron [Zofran] 4 mg IVPUSH Q4H PRN Resuscitation Status Routine 12/04/20 18:46 Sequential Compression Device [OM.PC] Per Unit Routine 12/04/20 18:48 Antiembolic Devices [RC] PER UNIT ROUTINE 12/04/20 18:50 RT Aerosol Therapy [RC] ASDIRECTED 12/04/20 18:52 Dextrose 50% in Water 50 ml IVPUSH ASDIRECTED PRN Glucagon,Human Recombinant [GlucaGen] 1 mg IM ASDIRECTED PRN 12/04/20 19:40 Communication Order [RC] ROUTINE Communication Order [RC] STAT 12/04/20 19:45 Lactated Ringers [Ringers, Lactated] 1,000 ml IV ASDIRECTED 12/04/20 20:00 Piperacillin/Tazobactam [Piperacil-Tazobact] 3.375 gm Sodium Chloride 0.9% [ Normal Saline] 50 ml IV Q8H 12/05/20 09:00 Pantoprazole [ProTONIX IV] 40 mg Sodium Chloride 0.9% [Normal Saline] 10 ml IV Q12HR 12/05/20 10:15 Levothyroxine [Synthroid] 100 mcg PO [id number] 12/05/20 13:51 ClonazePAM [KlonoPIN] 1 - 2 mg PO DAILY PRN 12/08/20 07:30 Levothyroxine 150 mcg PO MoFr@729 - Plan Plan:: 45-year-old female with history of DM 1, GERD, H. pylori and hypothyroidism has Hemoccult positive blood and generalized tenderness, CT scan shows ischemic colitis. Patient remains admitted awaiting transfer to [facility]. August for later today. Patient is afebrile lactic acid is normal. We will get a mesenteric angiography. We will also follow-up with general surgery per recommendations. Patient has currently n.p.o. on ice chips. Continue Zosyn. Continue D5 LR at 125. Home insulin pump sliding scale. Restart levothyroxine.
[2020-12-05] MEDS: ClonazePAM 1 MG Tab PO PRN (15:42)
[2020-12-05] MEDS ORDERED: Iopamidol 755 MG/ML 500 ML Multipack Bottle IVPUSH STA (15:46)
[2020-12-05 16:29] LABS: BLOOD UREA NITROGEN,BUN 4 mg/dL (7.0-18.0); CARBON DIOXIDE,CO2 30.1 mmol/L (21.0-32.0); CHLORIDE,CL 101 mmol/L (98-107); GLUCOSE RANDOM 143 mg/dL (74-106); SODIUM,NA 137 mmol/L (136-145)
[2020-12-05] MEDS ORDERED: Potassium Chloride Riders 20 MEQ in Premix Bag 1 BAG IV ONE (21:15)
[2020-12-06] MEDS: Morphine 2 MG/ML SYRINGE IVPUSH PRN ×2 (01:40→22:31)
[2020-12-06] MEDS: Dextrose 5%-Lactated Ringers 1,000 ML IV SCH ×2 (02:05→10:16)
[2020-12-06] MEDS: Piperacillin/Tazobactam 3.375 GM in Sodium Chloride 0.9% 50 ML IV SCH ×3 (04:55→21:57)
[2020-12-06 06:06] LABS: BLOOD UREA NITROGEN,BUN 3 mg/dL (7.0-18.0); CARBON DIOXIDE,CO2 29.1 mmol/L (21.0-32.0); CHLORIDE,CL 102 mmol/L (98-107); GLUCOSE RANDOM 187 mg/dL (74-106); POTASSIUM,K 3.4 mmol/L (3.5-5.1); SODIUM,NA 138 mmol/L (136-145)
[2020-12-06] MEDS: Levothyroxine 100 MCG Tab PO SCH (06:38)
[2020-12-06] MEDS ORDERED: Potassium Chloride 20 MEQ Tab.ER PO ONE ×2 (07:27→09:45)
[2020-12-06] MEDS: Pantoprazole 40 MG in Sodium Chloride 0.9% 10 ML IV SCH ×2 (09:54→21:55)
[2020-12-06] MEDS ORDERED: Magnesium Sulfate/Water 4 GM in Premix Bag 1 BAG IV ONE (11:26)
[2020-12-06] MEDS ORDERED: Phosphorus #1 250 MG Tab PO ONE (11:30)
[2020-12-06] MEDS ORDERED: 50% Dextrose in Water 50 ML Syringe IVPUSH PRN (11:44)
[2020-12-06] MEDS ORDERED: Glucagon,Human Recombinant 1 MG Vial IM PRN (11:44)
[2020-12-06] MEDS: Insulin Aspart 100 Units/ML 3 ML Pen SUBCUT SCH ×2 (12:05→19:11)
[2020-12-06] MEDS: Phosphorus #1 250 MG Tab PO SCH ×2 (13:04→18:40)
--- NOTE | 2020-12-06 13:47 | PCM.PN ---
- General Info Date of Service: 12/06/20 Admission Dx/Problem (Free Text): Admission Diagnosis/Problem Admission Diagnosis/Problem Ischemic colitis Subjective Update: 45-year-old female with history of type 1 diabetes mellitus, H pylori was admitted for colitis. She was initially to be transferred to [facility] but they did not have beds open. CT angiography of her abdomen yesterday showed no occlusion of the inferior mesenteric artery and branches, vessels patent. It showed colitis of descending and sigmoid colon. Patient being treated with IV Zosyn. Patient is n.p.o. This morning patient states that her pain is better and her abdomen is nontender. Patient had a nonbloody bowel movement this morning. Patient would like to eat she will be started on clear liquid diet. Patient's potassium was repleted. Patient denies chest pain, palpitations, headaches, abdominal pain, diarrhea, or right red blood per rectum. - Review of Systems General: Reports: No Symptoms HEENT: Reports: No Symptoms Pulmonary: Reports: No Symptoms Cardiovascular: Reports: No Symptoms Gastrointestinal: Reports: Abdominal Pain. Denies: Constipation, Decreased Appetite, Diarrhea, Hematochezia, Melena, Nausea, Vomiting Genitourinary: Reports: No Symptoms Musculoskeletal: Reports: No Symptoms Skin: Reports: No Symptoms Neurological: Reports: No Symptoms - Patient Data Vitals - Most Recent: Last Vital Signs Temp 97.2 F 12/06/20 10:34 Pulse 70 12/06/20 10:34 Resp 16 12/06/20 10:34 BP 135/83 12/06/20 10:34 Pulse Ox 98 12/06/20 10:34 Weight - Most Recent: 169 lb 8 oz I&O - Last 24 Hours: Intake & Output 12/05/20 12/06/20 12/06/20 22:59 06:59 14:59 Intake Total 860 1075 Output Total 1700 Balance 860 -625 Lab Results Last 24 Hours: Laboratory Results - last 24 hr 12/05/20 12/06/20 12/06/20 Range/Units 15:15 05:25 05:25 WBC 4.47 (4.0-11.0) K/uL RBC 2.86 L (4.30-5.90) M/uL Hgb 10.9 L (12.0-16.0) g/dL Hct 31.2 L (36.0-46.0) % MCV 109.1 H (80.0-98.0) fL MCH 38.1 H (27.0-32.0) pg MCHC 34.9 (31.0-37.0) g/dL RDW Std Deviation 60.4 (28.0-62.0) fl RDW Coeff of Juan 15 (11.0-15.0) % Plt Count 153 (150-400) K/uL MPV 10.20 (7.40-12.00) fL Neut % (Auto) 53.5 (48.0-80.0) % Lymph % (Auto) 36.0 (16.0-40.0) % [place] % (Auto) 7.2 (0.0-15.0) % Eos % (Auto) 2.9 (0.0-7.0) % Baso % (Auto) 0.4 (0.0-1.5) % Neut # (Auto) 2.4 (1.4-5.7) K/uL Lymph # (Auto) 1.6 (0.6-2.4) K/uL [place] # (Auto) 0.3 (0.0-0.8) K/uL Eos # (Auto) 0.1 (0.0-0.7) K/uL Baso # (Auto) 0.0 (0.0-0.1) K/uL Nucleated RBC % 0.0 /100WBC Nucleated RBCs # 0 K/uL Sodium 137 138 (136-145) mmol/L Potassium 3.0 L 3.4 L (3.5-5.1) mmol/L Chloride 101 102 (98-107) mmol/L Carbon Dioxide 30.1 29.1 (21.0-32.0) mmol/L BUN 4 L 3 L (7.0-18.0) mg/dL Creatinine 0.9 0.8 (0.6-1.0) mg/dL Est Cr Clr Drug Dosing 68.16 76.68 mL/min Estimated GFR (MDRD) > 60.0 > 60.0 ml/min Glucose 143 H 187 H (74-106) mg/dL Calcium 7.2 L 7.4 L (8.5-10.1) mg/dL Phosphorus (2.6-4.7) mg/dL Magnesium (1.8-2.4) mg/dL Total Bilirubin 0.6 (0.2-1.0) mg/dL AST 67 H (15-37) IU/L ALT 37 (14-63) IU/L Alkaline Phosphatase 82 (46-116) U/L Total Protein 4.7 L (6.4-8.2) g/dL Albumin 2.2 L (3.4-5.0) g/dL Globulin 2.5 L (2.6-4.0) g/dL Albumin/Globulin Ratio 0.9 (0.9-1.6) 12/06/20 Range/Units 05:25 WBC (4.0-11.0) K/uL RBC (4.30-5.90) M/uL Hgb (12.0-16.0) g/dL Hct (36.0-46.0) % MCV (80.0-98.0) fL MCH (27.0-32.0) pg MCHC (31.0-37.0) g/dL RDW Std Deviation (28.0-62.0) fl RDW Coeff of Juan (11.0-15.0) % Plt Count (150-400) K/uL MPV (7.40-12.00) fL Neut % (Auto) (48.0-80.0) % Lymph % (Auto) (16.0-40.0) % [place] % (Auto) (0.0-15.0) % Eos % (Auto) (0.0-7.0) % Baso % (Auto) (0.0-1.5) % Neut # (Auto) (1.4-5.7) K/uL Lymph # (Auto) (0.6-2.4) K/uL [place] # (Auto) (0.0-0.8) K/uL Eos # (Auto) (0.0-0.7) K/uL Baso # (Auto) (0.0-0.1) K/uL Nucleated RBC % /100WBC Nucleated RBCs # K/uL Sodium (136-145) mmol/L Potassium (3.5-5.1) mmol/L Chloride (98-107) mmol/L Carbon Dioxide (21.0-32.0) mmol/L BUN (7.0-18.0) mg/dL Creatinine (0.6-1.0) mg/dL Est Cr Clr Drug Dosing mL/min Estimated GFR (MDRD) ml/min Glucose (74-106) mg/dL Calcium (8.5-10.1) mg/dL Phosphorus 2.4 L (2.6-4.7) mg/dL Magnesium 1.3 L (1.8-2.4) mg/dL Total Bilirubin (0.2-1.0) mg/dL AST (15-37) IU/L ALT (14-63) IU/L Alkaline Phosphatase (46-116) U/L Total Protein (6.4-8.2) g/dL Albumin (3.4-5.0) g/dL Globulin (2.6-4.0) g/dL Albumin/Globulin Ratio (0.9-1.6) Yair Results Last 24 Hours: Microbiology 12/04/20 13:10 Aerobic Blood Culture - Preliminary Blood - Venous - Lab Draw NO GROWTH AFTER 2 DAYS Anaerobic Blood Culture - Preliminary NO GROWTH AFTER 2 DAYS 12/04/20 12:58 Aerobic Blood Culture - Preliminary Blood - Venous NO GROWTH AFTER 2 DAYS Anaerobic Blood Culture - Preliminary NO GROWTH AFTER 2 DAYS Med Orders - Current: Current Medications Acetaminophen (Acetaminophen 325 Mg Tab) 650 mg PO Q4H PRN PRN Reason: Pain (Mild 1-3)/fever Albuterol/Ipratropium (Albuterol/Ipratropium 3.0-0.5 Mg/3 Ml Neb Soln) 3 ml NEB Q4HRRT PRN PRN Reason: Shortness Of Breath/wheezing Clonazepam (Clonazepam 1 Mg Tab) 1 - 2 mg PO DAILY PRN PRN Reason: Anxiety Last Admin: 12/05/20 15:42 Dose: 1 mg Documented by: Dextrose/Water (50% Dextrose In Water 50 Ml Syringe) 50 ml IVPUSH ASDIRECTED PRN PRN Reason: Hypoglycemia Dextrose/Water (50% Dextrose In Water 50 Ml Syringe) 50 ml IVPUSH ASDIRECTED PRN PRN Reason: Hypoglycemia Glucagon (Glucagon,Human Recombinant 1 Mg Vial) 1 mg IM ASDIRECTED PRN PRN Reason: Hypoglycemia Glucagon (Glucagon,Human Recombinant 1 Mg Vial) 1 mg IM ASDIRECTED PRN PRN Reason: Hypoglycemia Lactated Ringer's (Ringers, Lactated) 1,000 mls @ 125 mls/hr IV ASDIRECTED [facility] Last Infusion: 12/04/20 22:55 Dose: 0 mls/hr Documented by: Piperacillin Sod/Tazobactam (Sod 3.375 gm/ Sodium Chloride) 50 mls @ 100 mls/hr IV Q8H [facility] Last Admin: 12/06/20 11:31 Dose: 100 mls/hr Documented by: Dextrose/Lactated Ringer's (Dextrose 5%-Lactated Ringers) 1,000 mls @ 75 mls/hr IV ASDIRECTED [facility] Last Admin: 12/06/20 10:16 Dose: 125 mls/hr Documented by: Pantoprazole Sodium 40 mg/ (Sodium Chloride) 10 mls @ 200 mls/hr IV Q12HR [facility] Last Admin: 12/06/20 09:54 Dose: 200 mls/hr Documented by: Insulin Aspart (Insulin Aspart 100 Units/Ml 3 Ml Pen) 0 unit SUBCUT TIDAC [facility]; Protocol Last Admin: 12/06/20 12:05 Dose: Not Given Documented by: Levothyroxine Sodium (Levothyroxine 100 Mcg Tab) 100 mcg PO SuTuWeThSa@0730 [facility] Last Admin: 12/06/20 06:38 Dose: 100 mcg Documented by: Levothyroxine Sodium (Levothyroxine 150 Mcg Tab) 150 mcg PO MoFr@0730 [facility] Morphine Sulfate (Morphine 2 Mg/Ml Syringe) 2 mg IVPUSH Q3H PRN PRN Reason: Pain Last Admin: 12/06/20 01:40 Dose: 2 mg Documented by: Ondansetron HCl (Ondansetron 4 Mg/2 Ml Sdv) 4 mg IVPUSH Q4H PRN PRN Reason: Nausea/Vomiting Sodium Chloride (Sodium Chloride 0.9% 10 Ml Syringe) 10 ml FLUSH ASDIRECTED PRN PRN Reason: Keep Vein Open Last Admin: 12/04/20 10:16 Dose: 10 ml Documented by: Sodium Chloride (Sodium Chloride 0.9% 2.5 Ml Syringe) 2.5 ml FLUSH ASDIRECTED PRN PRN Reason: Keep Vein Open Last Admin: 12/04/20 10:17 Dose: 2.5 ml Documented by: Sodium Phosphate (Phosphorus #1 250 Mg Tab) 250 mg PO QID [facility] Last Admin: 12/06/20 13:04 Dose: 250 mg Documented by: Discontinued Medications Sodium Chloride (Normal Saline) 1,000 mls @ 999 mls/hr IV STAT ONE Stop: 12/04/20 11:10 Last Admin: 12/04/20 10:17 Dose: 999 mls/hr Documented by: Sodium Chloride (Normal Saline) 1,000 mls @ 999 mls/hr IV STAT ONE Stop: 12/04/20 12:46 Last Admin: 12/04/20 12:28 Dose: 999 mls/hr Documented by: Piperacillin Sod/Tazobactam (Sod 3.375 gm/ Sodium Chloride) 50 mls @ 100 mls/hr IV ONETIME ONE Stop: 12/04/20 13:03 Last Admin: 12/04/20 13:07 Dose: 100 mls/hr Documented by: Sodium Chloride (Normal Saline) 1,000 mls @ 999 mls/hr IV STAT ONE Stop: 12/04/20 13:50 Last Admin: 12/04/20 13:07 Dose: 999 mls/hr Documented by: Sodium Chloride (Normal Saline) 1,000 mls @ 150 mls/hr IV STAT ONE Stop: 12/04/20 23:04 Last Admin: 12/04/20 16:54 Dose: 150 mls/hr Documented by: Lactated Ringer's (Ringers, Lactated) 1,000 mls @ 999 mls/hr IV BOLUS ONE Stop: 12/04/20 23:22 Last Admin: 12/04/20 22:54 Dose: 999 mls/hr Documented by: Potassium Chloride 40 meq/ (Premix) 100 mls @ 25 mls/hr IV ONETIME ONE Stop: 12/05/20 13:14 Last Admin: 12/05/20 09:24 Dose: 25 mls/hr Documented by: Potassium Chloride 40 meq/ (Premix) 100 mls @ 25 mls/hr IV ONETIME ONE Stop: 12/05/20 21:14 Last Admin: 12/05/20 17:31 Dose: 25 mls/hr Documented by: Potassium Chloride 20 meq/ (Premix) 50 mls @ 25 mls/hr IV ONETIME ONE Stop: 12/05/20 23:14 Last Admin: 12/05/20 23:55 Dose: 25 mls/hr Documented by: Magnesium Sulfate 4 gm/ Premix 100 mls @ 50 mls/hr IV ONETIME ONE Stop: 12/06/20 13:25 Last Admin: 12/06/20 12:11 Dose: 50 mls/hr Documented by: Insulin Aspart (Insulin Aspart 100 Units/Ml 3 Ml Pen) 0 unit SUBCUT TIDAC [facility]; Protocol Last Admin: 12/05/20 08:17 Dose: Not Given Documented by: Iopamidol (Iopamidol 755 Mg/Ml 500 Ml Multipack Bottle) 100 ml IVPUSH ONETIME STA Stop: 12/04/20 13:58 Last Admin: 12/04/20 13:58 Dose: 100 ml Documented by: Iopamidol (Iopamidol 755 Mg/Ml 500 Ml Multipack Bottle) 100 ml IVPUSH ONETIME STA Stop: 12/05/20 15:47 Last Admin: 12/05/20 15:46 Dose: 100 ml Documented by: Morphine Sulfate (Morphine 4 Mg/Ml Syringe) 4 mg IVPUSH ONETIME ONE Stop: 12/04/20 10:11 Last Admin: 12/04/20 10:17 Dose: 4 mg Documented by: Morphine Sulfate (Morphine 4 Mg/Ml Syringe) 4 mg IVPUSH ONETIME ONE Stop: 12/04/20 12:52 Last Admin: 12/04/20 13:06 Dose: 4 mg Documented by: Morphine Sulfate (Morphine 4 Mg/Ml Syringe) 4 mg IVPUSH ONETIME ONE Stop: 12/04/20 16:37 Last Admin: 12/04/20 16:54 Dose: 4 mg Documented by: Ondansetron HCl (Ondansetron 4 Mg/2 Ml Sdv) 4 mg IVPUSH ONETIME ONE Stop: 12/04/20 10:11 Last Admin: 12/04/20 10:17 Dose: 4 mg Documented by: Pantoprazole Sodium (Pantoprazole 40 Mg Vial) 40 mg IV DAILY [facility] Pantoprazole Sodium (Pantoprazole 40 Mg Vial) 40 mg IV Q12HR [facility] Last Admin: 12/04/20 20:26 Dose: 40 mg Documented by: Potassium Chloride (Potassium Chloride 20 Meq Tab.Er) 40 meq PO ONETIME ONE Stop: 12/06/20 07:28 Last Admin: 12/06/20 10:05 Dose: Not Given Documented by: Potassium Chloride (Potassium Chloride 20 Meq Tab.Er) 40 meq PO ONETIME ONE Stop: 12/06/20 09:46 Last Admin: 12/06/20 09:54 Dose: 40 meq Documented by: - Exam General: Alert, Oriented HEENT: Pupils Equal Neck: Supple Lungs: Clear to Auscultation, Normal Respiratory Effort Cardiovascular: Regular Rate, Regular Rhythm GI/Abdominal Exam: Soft, Non-Tender, No Organomegaly, No Distention, Other (Hypoactive bowel sounds.) Back Exam: Normal Inspection Extremities: Normal Inspection, No Pedal Edema. No: Marquita's Sign, Leg Pain Skin: Warm, Dry, Intact Neurological: No New Focal Deficit - Patient Data Lab Results Last 24 hrs: Laboratory Results - last 24 hr 12/05/20 12/06/20 12/06/20 Range/Units 15:15 05:25 05:25 WBC 4.47 (4.0-11.0) K/uL RBC 2.86 L (4.30-5.90) M/uL Hgb 10.9 L (12.0-16.0) g/dL Hct 31.2 L (36.0-46.0) % MCV 109.1 H (80.0-98.0) fL MCH 38.1 H (27.0-32.0) pg MCHC 34.9 (31.0-37.0) g/dL RDW Std Deviation 60.4 (28.0-62.0) fl RDW Coeff of Juan 15 (11.0-15.0) % Plt Count 153 (150-400) K/uL MPV 10.20 (7.40-12.00) fL Neut % (Auto) 53.5 (48.0-80.0) % Lymph % (Auto) 36.0 (16.0-40.0) % [place] % (Auto) 7.2 (0.0-15.0) % Eos % (Auto) 2.9 (0.0-7.0) % Baso % (Auto) 0.4 (0.0-1.5) % Neut # (Auto) 2.4 (1.4-5.7) K/uL Lymph # (Auto) 1.6 (0.6-2.4) K/uL [place] # (Auto) 0.3 (0.0-0.8) K/uL Eos # (Auto) 0.1 (0.0-0.7) K/uL Baso # (Auto) 0.0 (0.0-0.1) K/uL Nucleated RBC % 0.0 /100WBC Nucleated RBCs # 0 K/uL Sodium 137 138 (136-145) mmol/L Potassium 3.0 L 3.4 L (3.5-5.1) mmol/L Chloride 101 102 (98-107) mmol/L Carbon Dioxide 30.1 29.1 (21.0-32.0) mmol/L BUN 4 L 3 L (7.0-18.0) mg/dL Creatinine 0.9 0.8 (0.6-1.0) mg/dL Est Cr Clr Drug Dosing 68.16 76.68 mL/min Estimated GFR (MDRD) > 60.0 > 60.0 ml/min Glucose 143 H 187 H (74-106) mg/dL Calcium 7.2 L 7.4 L (8.5-10.1) mg/dL Phosphorus (2.6-4.7) mg/dL Magnesium (1.8-2.4) mg/dL Total Bilirubin 0.6 (0.2-1.0) mg/dL AST 67 H (15-37) IU/L ALT 37 (14-63) IU/L Alkaline Phosphatase 82 (46-116) U/L Total Protein 4.7 L (6.4-8.2) g/dL Albumin 2.2 L (3.4-5.0) g/dL Globulin 2.5 L (2.6-4.0) g/dL Albumin/Globulin Ratio 0.9 (0.9-1.6) 12/06/20 Range/Units 05:25 WBC (4.0-11.0) K/uL RBC (4.30-5.90) M/uL Hgb (12.0-16.0) g/dL Hct (36.0-46.0) % MCV (80.0-98.0) fL MCH (27.0-32.0) pg MCHC (31.0-37.0) g/dL RDW Std Deviation (28.0-62.0) fl RDW Coeff of Juan (11.0-15.0) % Plt Count (150-400) K/uL MPV (7.40-12.00) fL Neut % (Auto) (48.0-80.0) % Lymph % (Auto) (16.0-40.0) % [place] % (Auto) (0.0-15.0) % Eos % (Auto) (0.0-7.0) % Baso % (Auto) (0.0-1.5) % Neut # (Auto) (1.4-5.7) K/uL Lymph # (Auto) (0.6-2.4) K/uL [place] # (Auto) (0.0-0.8) K/uL Eos # (Auto) (0.0-0.7) K/uL Baso # (Auto) (0.0-0.1) K/uL Nucleated RBC % /100WBC Nucleated RBCs # K/uL Sodium (136-145) mmol/L Potassium (3.5-5.1) mmol/L Chloride (98-107) mmol/L Carbon Dioxide (21.0-32.0) mmol/L BUN (7.0-18.0) mg/dL Creatinine (0.6-1.0) mg/dL Est Cr Clr Drug Dosing mL/min Estimated GFR (MDRD) ml/min Glucose (74-106) mg/dL Calcium (8.5-10.1) mg/dL Phosphorus 2.4 L (2.6-4.7) mg/dL Magnesium 1.3 L (1.8-2.4) mg/dL Total Bilirubin (0.2-1.0) mg/dL AST (15-37) IU/L ALT (14-63) IU/L Alkaline Phosphatase (46-116) U/L Total Protein (6.4-8.2) g/dL Albumin (3.4-5.0) g/dL Globulin (2.6-4.0) g/dL Albumin/Globulin Ratio (0.9-1.6) Result Diagrams: 12/06/20 05:25 12/06/20 05:25 Yair Results Last 24 hrs: Microbiology 12/04/20 13:10 Aerobic Blood Culture - Preliminary Blood - Venous - Lab Draw NO GROWTH AFTER 2 DAYS Anaerobic Blood Culture - Preliminary NO GROWTH AFTER 2 DAYS 12/04/20 12:58 Aerobic Blood Culture - Preliminary Blood - Venous NO GROWTH AFTER 2 DAYS Anaerobic Blood Culture - Preliminary NO GROWTH AFTER 2 DAYS Sepsis Event Note - Evaluation Sepsis Screening Result: No Definite Risk - Focused Exam Vital Signs: Vital Signs Temp Pulse Resp BP Pulse Ox 12/06/20 10:34 97.2 F 70 16 135/83 98 12/06/20 04:57 97 F 69 15 138/81 97 - Problem List & Annotations (1) Ischemic colitis SNOMED Code(s): 85163518 Code(s): K55.9 - VASCULAR DISORDER OF INTESTINE, UNSPECIFIED Status: Acute Current Visit: Yes - Problem List Review Problem List Initiated/Reviewed/Updated: Yes - My Orders Last 24 Hours: My Active Orders 12/05/20 13:51 ClonazePAM [KlonoPIN] 1 - 2 mg PO DAILY PRN 12/05/20 19:48 Communication Order [RC] ROUTINE 12/06/20 11:44 Dextrose 50% in Water 50 ml IVPUSH ASDIRECTED PRN Glucagon,Human Recombinant [GlucaGen] 1 mg IM ASDIRECTED PRN Insulin Aspart [NovoLOG] See Protocol SUBCUT TIDAC 12/07/20 05:11 CBC WITH AUTO DIFF [HEME] AM CMP [COMPREHENSIVE METABOLIC PN,CMP] [CHEM] AM 12/08/20 05:11 CBC WITH AUTO DIFF [HEME] AM CMP [COMPREHENSIVE METABOLIC PN,CMP] [CHEM] AM 12/08/20 07:30 Levothyroxine 150 mcg PO MoFr@0730 - Plan Plan:: 45-year-old female admitted for colitis being treated with Zosyn 3.375 mg every 8 hours. Blood culture showed no growth. CT angiography of her abdomen showed no occlusion of her mesenteric vessels. It reported colitis of the descending and sigmoid colon. Patient is afebrile. Potassium was repleted. Patient's pain is improved and is ready to advance her diet. We will start with clear liquid diet and advance as tolerated. Discontinue IV fluids. Case was discussed with general surgery Dr. Isbell yesterday, outpatient colonoscopy advised.
[2020-12-06] MEDS: ClonazePAM 1 MG Tab PO PRN (14:59)
[2020-12-07] MEDS: Phosphorus #1 250 MG Tab PO SCH ×3 (00:32→11:36)
[2020-12-07] MEDS: Vancomycin 125 MG Cap PO SCH ×3 (00:32→11:36)
[2020-12-07] MEDS: Morphine 2 MG/ML SYRINGE IVPUSH PRN ×2 (01:50→11:51)
[2020-12-07 06:22] LABS: BLOOD UREA NITROGEN,BUN 2 mg/dL (7.0-18.0); CHLORIDE,CL 103 mmol/L (98-107); GLUCOSE RANDOM 127 mg/dL (74-106); POTASSIUM,K 3.3 mmol/L (3.5-5.1); SODIUM,NA 137 mmol/L (136-145)
[2020-12-07] MEDS ORDERED: Potassium Chloride 20 MEQ Tab.ER PO ONE (07:53)
[2020-12-07] MEDS: Pantoprazole 40 MG in Sodium Chloride 0.9% 10 ML IV SCH (08:01)
[2020-12-07] MEDS: Levothyroxine 100 MCG Tab PO SCH (08:01)
[2020-12-07] MEDS: Insulin Aspart 100 Units/ML 3 ML Pen SUBCUT SCH ×2 (11:38→11:39)
--- NOTE | 2020-12-07 12:21 | PCM.DCSUM1 ---
Discharge Summary - Hospital Course Free Text/Narrative:: 45-year-old female with history of type I DM, H pylori presented to the ER with abdominal discomfort and bloody stools. She was constipated a week prior and spent an extended period on the toilet and had multiple bloody bowel movements. She complained of generalized abdominal discomfort and cramping with nausea and maroon-colored stool. Denied vomiting. In the ER she had generalized tenderness in all 4 quadrants, negative rebound. Hemoglobin was 14.9. Hemoccult was positive. BP 135/101. Patient was tachycardic. Lactic acid was 3.7. Patient received IV fluids. Repeat lactic acid was 1.9. CT abdomen showed ischemic lightest in the descending colon and sigmoid colon in the GLO distribution. Patient was started on IV Zosyn 3.375. Patient was initially going be transferred to [facility] to locate source of ischemia but there was unavailable. CT angiography of the abdomen showed patent mesenteric vessels and branches. Patient was treated for infectious colitis of the sigmoid and descending colon. She was n.p.o. and received D5 LR at 125 mL/h. Potassium was repleted. After 48 hours her diet was advanced to clear liquids which she tolerated. Further advanced to soft mechanical. She had 3 episodes of watery stools and was tested for C. difficile. C. difficile antigen was positive and patient was started on p.o. vancomycin. Hemoccult test was negative. Case was discussed with general surgery Dr. Isbell, outpatient colonoscopy was advised. Barney beasley to follow-up with Dr. Mayo 12/20/2020. Patient's abdominal pain improved and vital signs are stable. Patient discharged on 10 days of p.o. vancomycin. - Discharge Data Discharge Date: 12/07/20 Discharge Disposition: Home, Self-Care 01 Condition: Good - Referral to Home Health Primary Care Physician: Augustine Hou MD - Discharge Diagnosis/Problem(s) (1) Ischemic colitis SNOMED Code(s): 24806146 ICD Code: K55.9 - VASCULAR DISORDER OF INTESTINE, UNSPECIFIED Status: Acute Current Visit: Yes (2) C. difficile diarrhea SNOMED Code(s): 5098803067689 ICD Code: A04.72 - ENTEROCOLITIS D/T CLOSTRIDIUM DIFFICILE, NOT SPCF RECUR Status: Acute Current Visit: Yes - Patient Instructions Diet: Diabetic Diet Activity: As Tolerated Notify Provider of: Fever, Increased Pain Other/Special Instructions: Your stool tested positive for C. difficile. You are being discharged on 10 days of vancomycin. Please take 1 tab every 6 hours for 10 days. You are also being given 1 week of oral potassium. Please see your PCP for follow-up blood work and discuss regarding continuing potassium. If you e xperience vomiting, bloody diarrhea, fever, chills, abdominal pain please seek medical attention. - Discharge Plan *PRESCRIPTION DRUG MONITORING PROGRAM REVIEWED*: Not Applicable *COPY OF PRESCRIPTION DRUG MONITORING REPORT IN PATIENT AKIRA: Not Applicable Prescriptions/Med Rec: Potassium Chloride 20 meq PO DAILY 7 Days #7 tablet.er Vancomycin [Vancocin 125 MG Capsule] 125 mg PO Q6HR 10 Days #40 cap Home Medications: Home Meds Clobetasol [Clobetasol Propionate 0.05%] 15 gm TOP BID PRN 09/29/13 [History] Insulin Aspart [NovoLOG] 40 unit SUBCUT ASDIRECTED 01/19/15 [History] Acetaminophen/HYDROcodone [Benson 325-5 MG] 1 tab PO BID PRN 11/13/19 [History] clonazePAM [Clonazepam] 0.5 - 1 tab PO DAILY PRN 11/13/19 [History] Fluticasone Propionate [Flonase Allergy Relief] 1 spray NS DAILY PRN 11/19/19 [History] Chlorthalidone 25 mg PO DAILY 12/05/20 [History] Citalopram [Citalopram HBr] 10 mg PO DAILY 12/05/20 [History] Levothyroxine [Synthroid] 100 mcg PO SUTUWETHSA@72912/05/20 [History] Levothyroxine [Synthroid] 150 mcg PO MOFR@72912/05/20 [History] Meloxicam 15 mg PO DAILY PRN 12/05/20 [History] Pramipexole [Mirapex] 0.125 mg PO BEDTIME 12/05/20 [History] lisinopriL [Lisinopril] 20 mg PO DAILY 12/05/20 [History] Potassium Chloride 20 meq PO DAILY 7 Days #7 tablet.er 12/07/20 [Rx] Vancomycin [Vancocin 125 MG Capsule] 125 mg PO Q6HR 10 Days #40 cap 12/07/20 [Rx] Forms: ED Department Discharge Referrals: Jenny Mayo MD [Physician] - 12/20/20 8:30 am Dorota Leyva PA [Physician [employer]] - 12/15/20 3:45 pm - Discharge Summary/Plan Comment DC Time >30 min.: Yes Total # of Minutes for Discharge Time: 45 - General Info Admission Dx/Problem (Free Text: Admission Diagnosis/Problem Admission Diagnosis/Problem Ischemic colitis - Review of Systems General: Reports: No Symptoms HEENT: Reports: No Symptoms Pulmonary: Reports: No Symptoms Cardiovascular: Reports: No Symptoms Gastrointestinal: Reports: Diarrhea Genitourinary: Reports: No Symptoms Musculoskeletal: Reports: No Symptoms Skin: Reports: No Symptoms Neurological: Reports: No Symptoms - Patient Data Vitals - Most Recent: Last Vital Signs Temp 97.5 F 12/07/20 05:36 Pulse 68 12/07/20 05:36 Resp 16 12/07/20 05:36 BP 133/81 12/07/20 05:36 Pulse Ox 97 12/07/20 05:36 Weight - Most Recent: 169 lb 8 oz I&O - Last 24 hours: Intake & Output 12/06/20 12/07/20 12/07/20 22:59 06:59 14:59 Intake Total 950 960 Output Total 1350 1700 Balance -400 -740 Lab Results - Last 24 hrs: Laboratory Results - last 24 hr 12/07/20 12/07/20 Range/Units 05:25 05:25 WBC 4.81 (4.0-11.0) K/uL RBC 2.94 L (4.30-5.90) M/uL Hgb 11.5 L (12.0-16.0) g/dL Hct 31.7 L (36.0-46.0) % MCV 107.8 H (80.0-98.0) fL MCH 39.1 H (27.0-32.0) pg MCHC 36.3 (31.0-37.0) g/dL RDW Std Deviation 60.0 (28.0-62.0) fl RDW Coeff of Juan 15 (11.0-15.0) % Plt Count 177 (150-400) K/uL MPV 10.40 (7.40-12.00) fL Neut % (Auto) 57.2 (48.0-80.0) % Lymph % (Auto) 31.2 (16.0-40.0) % [place] % (Auto) 8.7 (0.0-15.0) % Eos % (Auto) 2.5 (0.0-7.0) % Baso % (Auto) 0.4 (0.0-1.5) % Neut # (Auto) 2.8 (1.4-5.7) K/uL Lymph # (Auto) 1.5 (0.6-2.4) K/uL [place] # (Auto) 0.4 (0.0-0.8) K/uL Eos # (Auto) 0.1 (0.0-0.7) K/uL Baso # (Auto) 0.0 (0.0-0.1) K/uL Nucleated RBC % 0.0 /100WBC Nucleated RBCs # 0 K/uL Sodium 137 (136-145) mmol/L Potassium 3.3 L (3.5-5.1) mmol/L Chloride 103 (98-107) mmol/L Carbon Dioxide 26.0 (21.0-32.0) mmol/L BUN 2 L (7.0-18.0) mg/dL Creatinine 0.7 (0.6-1.0) mg/dL Est Cr Clr Drug Dosing 87.64 mL/min Estimated GFR (MDRD) > 60.0 ml/min Glucose 127 H (74-106) mg/dL Calcium 7.8 L (8.5-10.1) mg/dL Phosphorus 3.9 (2.6-4.7) mg/dL Magnesium 2.0 (1.8-2.4) mg/dL Total Bilirubin 0.7 (0.2-1.0) mg/dL AST 63 H (15-37) IU/L ALT 39 (14-63) IU/L Alkaline Phosphatase 96 (46-116) U/L Total Protein 5.1 L (6.4-8.2) g/dL Albumin 2.4 L (3.4-5.0) g/dL Globulin 2.7 (2.6-4.0) g/dL Albumin/Globulin Ratio 0.9 (0.9-1.6) DANIEL Results - Last 24 hrs: Microbiology 12/06/20 19:14 C. difficile Antigen & Toxins A,B - Final Stool / Feces 12/06/20 19:14 Stool Occult Blood (DANIEL) - Final Stool / Feces 12/04/20 13:10 Aerobic Blood Culture - Preliminary Blood - Venous - Lab Draw NO GROWTH AFTER 2 DAYS Anaerobic Blood Culture - Preliminary NO GROWTH AFTER 2 DAYS 12/04/20 12:58 Aerobic Blood Culture - Preliminary Blood - Venous NO GROWTH AFTER 2 DAYS Anaerobic Blood Culture - Preliminary NO GROWTH AFTER 2 DAYS Med Orders - Current: Current Medications Acetaminophen (Acetaminophen 325 Mg Tab) 650 mg PO Q4H PRN PRN Reason: Pain (Mild 1-3)/fever Albuterol/Ipratropium (Albuterol/Ipratropium 3.0-0.5 Mg/3 Ml Neb Soln) 3 ml NEB Q4HRRT PRN PRN Reason: Shortness Of Breath/wheezing Clonazepam (Clonazepam 1 Mg Tab) 1 - 2 mg PO DAILY PRN PRN Reason: Anxiety Last Admin: 12/06/20 14:59 Dose: 1 mg Documented by: Dextrose/Water (50% Dextrose In Water 50 Ml Syringe) 50 ml IVPUSH ASDIRECTED PRN PRN Reason: Hypoglycemia Dextrose/Water (50% Dextrose In Water 50 Ml Syringe) 50 ml IVPUSH ASDIRECTED PRN PRN Reason: Hypoglycemia Glucagon (Glucagon,Human Recombinant 1 Mg Vial) 1 mg IM ASDIRECTED PRN PRN Reason: Hypoglycemia Glucagon (Glucagon,Human Recombinant 1 Mg Vial) 1 mg IM ASDIRECTED PRN PRN Reason: Hypoglycemia Pantoprazole Sodium 40 mg/ (Sodium Chloride) 10 mls @ 200 mls/hr IV Q12HR [facility] Last Admin: 12/07/20 08:01 Dose: 200 mls/hr Documented by: Insulin Aspart (Insulin Aspart 100 Units/Ml 3 Ml Pen) 0 unit SUBCUT TIDAC [facility]; Protocol Last Admin: 12/07/20 11:39 Dose: 1.4 unit Documented by: Levothyroxine Sodium (Levothyroxine 100 Mcg Tab) 100 mcg PO SuTuWeThSa@0730 [facility] Last Admin: 12/07/20 08:01 Dose: 100 mcg Documented by: Levothyroxine Sodium (Levothyroxine 150 Mcg Tab) 150 mcg PO MoFr@0730 [facility] Morphine Sulfate (Morphine 2 Mg/Ml Syringe) 2 mg IVPUSH Q3H PRN PRN Reason: Pain Last Admin: 12/07/20 11:51 Dose: 2 mg Documented by: Ondansetron HCl (Ondansetron 4 Mg/2 Ml Sdv) 4 mg IVPUSH Q4H PRN PRN Reason: Nausea/Vomiting Sodium Chloride (Sodium Chloride 0.9% 10 Ml Syringe) 10 ml FLUSH ASDIRECTED PRN PRN Reason: Keep Vein Open Last Admin: 12/04/20 10:16 Dose: 10 ml Documented by: Sodium Chloride (Sodium Chloride 0.9% 2.5 Ml Syringe) 2.5 ml FLUSH ASDIRECTED PRN PRN Reason: Keep Vein Open Last Admin: 12/04/20 10:17 Dose: 2.5 ml Documented by: Sodium Phosphate (Phosphorus #1 250 Mg Tab) 250 mg PO QID [facility] Last Admin: 12/07/20 11:36 Dose: 250 mg Documented by: Vancomycin HCl (Vancomycin 125 Mg Cap) 250 mg PO QID [facility] Last Admin: 12/07/20 11:36 Dose: 250 mg Documented by: Discontinued Medications Sodium Chloride (Normal Saline) 1,000 mls @ 999 mls/hr IV STAT ONE Stop: 12/04/20 11:10 Last Admin: 12/04/20 10:17 Dose: 999 mls/hr Documented by: Sodium Chloride (Normal Saline) 1,000 mls @ 999 mls/hr IV STAT ONE Stop: 12/04/20 12:46 Last Admin: 12/04/20 12:28 Dose: 999 mls/hr Documented by: Piperacillin Sod/Tazobactam (Sod 3.375 gm/ Sodium Chloride) 50 mls @ 100 mls/hr IV ONETIME ONE Stop: 12/04/20 13:03 Last Admin: 12/04/20 13:07 Dose: 100 mls/hr Documented by: Sodium Chloride (Normal Saline) 1,000 mls @ 999 mls/hr IV STAT ONE Stop: 12/04/20 13:50 Last Admin: 12/04/20 13:07 Dose: 999 mls/hr Documented by: Sodium Chloride (Normal Saline) 1,000 mls @ 150 mls/hr IV STAT ONE Stop: 12/04/20 23:04 Last Admin: 12/04/20 16:54 Dose: 150 mls/hr Documented by: Lactated Ringer's (Ringers, Lactated) 1,000 mls @ 125 mls/hr IV ASDIRECTED [facility] Last Infusion: 12/04/20 22:55 Dose: 0 mls/hr Documented by: Piperacillin Sod/Tazobactam (Sod 3.375 gm/ Sodium Chloride) 50 mls @ 100 mls/hr IV Q8H [facility] Last Admin: 12/06/20 21:57 Dose: Not Given Documented by: Lactated Ringer's (Ringers, Lactated) 1,000 mls @ 999 mls/hr IV BOLUS ONE Stop: 12/04/20 23:22 Last Admin: 12/04/20 22:54 Dose: 999 mls/hr Documented by: Dextrose/Lactated Ringer's (Dextrose 5%-Lactated Ringers) 1,000 mls @ 75 mls/hr IV ASDIRECTED [facility] Last Admin: 12/06/20 10:16 Dose: 125 mls/hr Documented by: Potassium Chloride 40 meq/ (Premix) 100 mls @ 25 mls/hr IV ONETIME ONE Stop: 12/05/20 13:14 Last Admin: 12/05/20 09:24 Dose: 25 mls/hr Documented by: Potassium Chloride 40 meq/ (Premix) 100 mls @ 25 mls/hr IV ONETIME ONE Stop: 12/05/20 21:14 Last Admin: 12/05/20 17:31 Dose: 25 mls/hr Documented by: Potassium Chloride 20 meq/ (Premix) 50 mls @ 25 mls/hr IV ONETIME ONE Stop: 12/05/20 23:14 Last Admin: 12/05/20 23:55 Dose: 25 mls/hr Documented by: Magnesium Sulfate 4 gm/ Premix 100 mls @ 50 mls/hr IV ONETIME ONE Stop: 12/06/20 13:25 Last Admin: 12/06/20 12:11 Dose: 50 mls/hr Documented by: Insulin Aspart (Insulin Aspart 100 Units/Ml 3 Ml Pen) 0 unit [facility]UT [facility]; Protocol Last Admin: 12/05/20 08:17 Dose: Not Given Documented by: Iopamidol (Iopamidol 755 Mg/Ml 500 Ml Multipack Bottle) 100 ml IVPUSH ONETIME STA Stop: 12/04/20 13:58 Last Admin: 12/04/20 13:58 Dose: 100 ml Documented by: Iopamidol (Iopamidol 755 Mg/Ml 500 Ml Multipack Bottle) 100 ml IVPUSH ONETIME STA Stop: 12/05/20 15:47 Last Admin: 12/05/20 15:46 Dose: 100 ml Documented by: Morphine Sulfate (Morphine 4 Mg/Ml Syringe) 4 mg IVPUSH ONETIME ONE Stop: 12/04/20 10:11 Last Admin: 12/04/20 10:17 Dose: 4 mg Documented by: Morphine Sulfate (Morphine 4 Mg/Ml Syringe) 4 mg IVPUSH ONETIME ONE Stop: 12/04/20 12:52 Last Admin: 12/04/20 13:06 Dose: 4 mg Documented by: Morphine Sulfate (Morphine 4 Mg/Ml Syringe) 4 mg IVPUSH ONETIME ONE Stop: 12/04/20 16:37 Last Admin: 12/04/20 16:54 Dose: 4 mg Documented by: Ondansetron HCl (Ondansetron 4 Mg/2 Ml Sdv) 4 mg IVPUSH ONETIME ONE Stop: 12/04/20 10:11 Last Admin: 12/04/20 10:17 Dose: 4 mg Documented by: Pantoprazole Sodium (Pantoprazole 40 Mg Vial) 40 mg IV DAILY [facility] Pantoprazole Sodium (Pantoprazole 40 Mg Vial) 40 mg IV Q12HR [facility] Last Admin: 12/04/20 20:26 Dose: 40 mg Documented by: Potassium Chloride (Potassium Chloride 20 Meq Tab.Er) 40 meq PO ONETIME ONE Stop: 12/06/20 07:28 Last Admin: 12/06/20 10:05 Dose: Not Given Documented by: Potassium Chloride (Potassium Chloride 20 Meq Tab.Er) 40 meq PO ONETIME ONE Stop: 12/06/20 09:46 Last Admin: 12/06/20 09:54 Dose: 40 meq Documented by: Potassium Chloride (Potassium Chloride 20 Meq Tab.Er) 40 meq PO ONETIME ONE Stop: 12/07/20 07:54 Last Admin: 12/07/20 11:39 Dose: 40 meq Documented by: - Exam General: Reports: Alert, Oriented, Cooperative HEENT: Reports: Pupils Equal Neck: Reports: Supple Lungs: Reports: Clear to Auscultation, Normal Respiratory Effort Cardiovascular: Reports: Regular Rate, Regular Rhythm GI/Abdominal Exam: Normal Bowel Sounds, Soft, Non-Tender. No: Guarding, Rigid, Rebound Back Exam: Reports: Normal Inspection Extremities: Normal Inspection, No Pedal Edema. No: Marquita's Sign, Leg Pain Skin: Reports: Warm, Dry, Intact Neurological: Reports: No New Focal Deficit
[2020-12-07 14:25] VITALS: BP 136/78; PULSE 72
[2020-12-08] MEDS ORDERED: Levothyroxine 150 MCG Tab PO SCH (07:30)
== END 2020-12-07 14:35 | disposition home or self-care (01) ==
LOC: MW.ED 09:45 → MW.MS 16:59
PROVIDERS: ADMIT Student in an Organized Health Care Education/Training Program; ATTEND Student in an Organized Health Care Education/Training Program
DX: K55.9 Vascular disorder of intestine, unspecified (principal); A04.72 Enterocolitis due to Clostridium difficile, not specified as recurrent; E10.9 Type 1 diabetes mellitus without complications; I10 Essential (primary) hypertension; E03.9 Hypothyroidism, unspecified; Z87.891 Personal history of nicotine dependence; Z88.6 Allergy status to analgesic agent; Z88.8 Allergy status to other drugs, medicaments and biological substances; Z79.4 Long term (current) use of insulin; Z79.890 Hormone replacement therapy; Z79.899 Other long term (current) drug therapy
CPT/HCPCS: 36415; 74174; 74177; 80048; 80053; 82272; 82947; 83605; 83690; 83735; 84100; 85025; 85610; 86850; 86900; 86901; 87040; 87324; 87493; 87635; 96365; 96366; 96367; 96375; 96376; 99285; A9270; C9113; G0378; J2270; J2405; J2543; J3475; J3480; J7030; J7120; J7121; Q9967; 99284; U0002

== ENCOUNTER 2021-02-06 08:17 | Day surgery (SDC) | payer BC ==
[2021-02-06] MEDS ORDERED: Lidocaine 2% 5 ML SDV ONE (08:53)
[2021-02-06] MEDS ORDERED: fentaNYL 100 MCG/2 ML SDV ONE (08:53)
[2021-02-06] MEDS ORDERED: Propofol 200 MG/20 ML SDV ONE (08:53)
--- NOTE | 2021-02-06 11:04 | PCM.PREANE ---
Preanesthetic Assessment - Anesthesia/Transfusion/Family Hx Anesthesia History: Prior Anesthesia Without Reaction Other Type of Anesthesia Reaction Comment: Denies any known problem in past, no known family hx: problems Transfusion History: No Prior Transfusion(s) Intubation History: Unknown - Review of Systems General: No Symptoms Pulmonary: No Symptoms Cardiovascular: No Symptoms Gastrointestinal: No Symptoms Neurological: No Symptoms Other: Reports: None - Physical Assessment NPO Status Date: 02/06/21 NPO Status Time: 00:00 Vital Signs: Last Vital Signs Temp 97.2 F 02/06/21 08:25 Pulse 89 02/06/21 08:25 Resp 16 02/06/21 08:25 BP 126/78 02/06/21 08:25 Pulse Ox 95 02/06/21 08:25 Height: 5 ft 4 in Weight: 159 lb ASA Class: 2 Mental Status: Alert & Oriented x3 Airway Class: Mallampati = 2 Dentition: Reports: Normal Dentition Thyro-Mental Finger Breadths: 3 Mouth Opening Finger Breadths: 3 ROM/Head Extension: Full Lungs: Clear to Auscultation, Normal Respiratory Effort Cardiovascular: Regular Rate, Regular Rhythm - Allergies Allergies/Adverse Reactions: Allergies Allergy/AdvReac Type Severity Reaction Status Date / Time codeine Allergy Itching Verified 01/31/21 10:18 duloxetine Allergy Chest Pain Verified 01/31/21 10:18 fluoxetine Allergy Confusion Verified 01/31/21 10:18 meperidine HCl [From Demerol] Allergy Hives/reddn Verified 01/31/21 10:18 ess/swellin g Flu Mist Allergy Swelling Uncoded 01/31/21 10:18 - Acknowledgements Anesthesia Type Planned: General Anesthesia Pt an Appropriate Candidate for the Planned Anesthesia: Yes Alternatives and Risks of Anesthesia Discussed w Pt/Guardian: Yes Pt/Guardian Understands and Agrees with Anesthesia Plan: Yes PreAnesthesia Questionnaire HEENT History: Reports: Other (See Below) Other HEENT History: wears glasses Cardiovascular History: Reports: Hypertension Respiratory History: Reports: None Other Respiratory History: Former smoker QUIT '2009 Gastrointestinal History: Reports: Chronic Constipation, Colon Polyp, GERD, Hemorrhoids, Helicobacter Pylori, Irritable Bowel Syndrome, Other (See Below) Other Gastrointestinal History: hx of C-Diff in 2018 Genitourinary History: Reports: None Other Genitourinary History: history of yeast infections [facility] History: Reports: Musculoskeletal History: Reports: Arthritis, Back Pain, Chronic, Fibromyalgia, Neck Pain, Chronic Neurological History: Reports: Concussion, Headaches, Chronic, Migraines, Other (See Below) Other Neuro History: hx of motion sickness, has Restless Leg Syndrome Psychiatric History: Reports: Anxiety, Depression Endocrine/Metabolic History: Reports: Diabetes, Type I, Hypothyroidism, IDDM Other Endocrine/Metabolic History: Hypothyroidism Hematologic History: Reports: None Immunologic History: Reports: None Oncologic (Cancer) History: Reports: None Dermatologic History: Reports: Psoriasis - Infectious Disease History Infectious Disease History: Reports: C-Difficile, Chicken Pox, Shingles - Past Surgical History Head Surgeries/Procedures: Reports: None HEENT Surgical History: Reports: Adenoidectomy, Tonsillectomy Other HEENT Surgeries/Procedures: [place] teeth extracted Cardiovascular Surgical History: Reports: None GI Surgical History: Reports: Colonoscopy, EGD Female Surgical History: Reports: Section, Hysterectomy, Tubal Ligation Other Female Surgeries/Procedures: Laparoscopy, Hysteroscopy, Essure Procedure Endocrine Surgical History: Reports: None Neurological Surgical History: Reports: C-Spine, Spinal Fusion Other Neurological Surgeries/Procedures: cervical fusion, C5-6 Musculoskeletal Surgical History: Reports: None - SUBSTANCE USE Tobacco Use Status *Q: Former Tobacco User Tobacco Use Within Last Twelve Months: No Recreational Drug Use History: No - HOME MEDS Home Medications: Home Meds Clobetasol [Clobetasol Propionate 0.05%] 15 gm TOP BID PRN 09/29/13 [History] Insulin Aspart [NovoLOG] 40 unit SUBCUT ASDIRECTED 01/19/15 [History] Acetaminophen/HYDROcodone [Nunez 325-5 MG] 1 tab PO BID PRN 11/13/19 [History] clonazePAM [Clonazepam] 1 - 2 mg PO BEDTIME PRN 11/13/19 [History] Chlorthalidone 12.5 mg PO DAILY 12/05/20 [History] Levothyroxine [Synthroid] 100 mcg PO DAILY 12/05/20 [History] Pramipexole [Mirapex] 0.125 mg PO BEDTIME 12/05/20 [History] lisinopriL [Lisinopril] 10 mg PO BEDTIME 12/05/20 [History] Cholecalciferol (Vitamin D3) [Vitamin D3] 1,000 unit PO DAILY 01/31/21 [History] Fluconazole 150 mg PO ONETIME PRN 01/31/21 [History] Ondansetron [Zofran ODT] 4 mg PO Q6H PRN 01/31/21 [History] - CURRENT (IN HOUSE) MEDS Current Meds: Current Medications Lactated Ringer's (Ringers, Lactated) 1,000 mls @ 125 mls/hr IV ASDIRECTED [facility] Last Admin: 02/06/21 08:48 Dose: 125 mls/hr Documented by: Sodium Chloride (Sodium Chloride 0.9% 10 Ml Syringe) 10 ml FLUSH ASDIRECTED PRN PRN Reason: Keep Vein Open Sodium Chloride (Sodium Chloride 0.9% 2.5 Ml Syringe) 2.5 ml FLUSH ASDIRECTED PRN PRN Reason: Keep Vein Open Sodium Chloride (Sodium Chloride 0.9% 10 Ml Syringe) 10 ml FLUSH ASDIRECTED PRN PRN Reason: Keep Vein Open Sodium Chloride (Sodium Chloride 0.9% 2.5 Ml Syringe) 2.5 ml FLUSH ASDIRECTED PRN PRN Reason: Keep Vein Open Sodium Chloride (Sodium Chloride 0.9% 10 Ml Sdv) 10 ml IV ASDIRECTED PRN PRN Reason: IV Use Discontinued Medications Fentanyl (Fentanyl 100 Mcg/2 Ml Sdv) Confirm Administered Dose 100 mcg .ROUTE .STK-MED ONE Stop: 02/06/21 08:54 Lidocaine (Lidocaine 2% 5 Ml Sdv) Confirm Administered Dose 5 ml .ROUTE .STK-MED ONE Stop: 02/06/21 08:54 Propofol (Propofol 200 Mg/20 Ml Sdv) Confirm Administered Dose 600 mg .ROUTE .STK-MED ONE Stop: 02/06/21 08:54
--- NOTE | 2021-02-06 11:04 | PCM.POSTAN ---
POST ANESTHESIA ASSESSMENT - MENTAL STATUS Mental Status: Alert, Oriented - VITAL SIGNS Vital Signs: Last Vital Signs Temp 98.1 F 02/06/21 11:00 Pulse 75 02/06/21 11:00 Resp 15 02/06/21 11:00 BP 108/72 02/06/21 11:00 Pulse Ox 100 02/06/21 11:00 - RESPIRATORY Respiratory Status: Respiratory Rate WNL, Airway Patent, O2 Saturation Stable - CARDIOVASCULAR CV Status: Pulse Rate WNL, Blood Pressure Stable - GASTROINTESTINAL GI Status: No Symptoms - POST OP HYDRATION Hydration Status: Adequate & Stable
--- NOTE | 2021-02-06 11:05 | PCM48HPAN ---
Post Anesthesia Note - EVALUATION WITHIN 48HRS OF ANESTHETIC Vital Signs in Normal Range: Yes Patient Participated in Evaluation: Yes Respiratory Function Stable: Yes Airway Patent: Yes Cardiovascular Function Stable: Yes Hydration Status Stable: Yes Pain Control Satisfactory: Yes Nausea and Vomiting Control Satisfactory: Yes Mental Status Recovered: Yes Vital Signs: Last Vital Signs Temp 98.1 F 02/06/21 11:00 Pulse 75 02/06/21 11:00 Resp 15 02/06/21 11:00 BP 108/72 02/06/21 11:00 Pulse Ox 100 02/06/21 11:00
--- NOTE | 2021-02-06 11:06 | PCM.OPNOTE ---
- General Post-Op/Procedure Note Date of Surgery/Procedure: 02/06/21 Operative Procedure(s): Diagnostic EGD and colonoscopy with biopsies Findings: Chronically inflamed gastric mucosa, antral gastric polyp, sigmoid colon with mucus, no evidence of gross colonic inflammation Pre Op Diagnosis: Chronic nausea, history of intestinal metaplasia of stomach, chronic diarrhea Post-Op Diagnosis: Gastritis, gastric polyp, chronic diarrhea Anesthesia Technique: [facility] [place] Primary Surgeon: Jenny Mayo Condition: Good
[2021-02-06 11:25] VITALS: BP 112/74; PULSE 76
--- NOTE | 2021-02-06 22:18 | OR ---
SURGEON: JENNY MAYO MD DATE OF PROCEDURE: 02/06/2021 PREOPERATIVE DIAGNOSES: Chronic nausea, change in bowel habits. POSTOPERATIVE DIAGNOSES: 1. Gastritis. 2. Gastric polyp. PROCEDURES PERFORMED: Diagnostic esophagogastroduodenoscopy and colonoscopy with biopsy. PRIMARY SURGEON: Jenny Mayo MD ANESTHESIA: MAC. INSTRUMENT USED: Olympus endoscope and colonoscope. EXTENT OF EXAM: To the second portion of duodenum, to the cecum. PREPARATION: Good. LIMITATIONS: None. INDICATIONS FOR EXAMINATION: The patient is a 45-year-old female who presents to my clinic with chronic nausea and a change in her bowel habits. Earlier this summer, she was diagnosed with colitis. She has a history of chronic gastritis with intestinal metaplasia as well as C difficile. She was treated for C difficile colitis. She was discharged from the hospital. She continues to have chronic nausea after this hospitalization, as well as diarrhea. She has tested negative for C difficile twice now since her hospitalization. The decision was made to proceed with a diagnostic EGD and colonoscopy. I explained to the patient, the procedure, expected perioperative course, and the risks. She verbalized understanding and wishes to proceed. PROCEDURE IN DETAIL: The patient was brought in to endoscopy suite and placed on the cart in a left lateral decubitus position. A time-out was completed verifying the patient's name, age, date of , allergies, and procedure to be performed. Monitored anesthesia care was induced and continuous oxygen was provided via face mask throughout the procedure. A bite block was placed in the patient's mouth. After adequate sedation was achieved, a well-lubricated endoscope was placed in the patient's mouth and advanced under direct visualization to the second portion of the duodenum. This appeared normal and a photograph was taken. The scope was then straightened out and fully withdrawn while examining the color, texture, anatomy, and integrity mucosa of the upper GI tract. A biopsy was taken in the duodenum and sent to Pathology for histologic review. The scope was brought into the stomach and a photograph was taken of the pylorus and GE junction. Both appeared anatomically normal. The patient's gastric mucosa appeared chronically inflamed and when I took biopsies of it, it appeared slightly friable. 3 to 4 biopsies were taken in the antrum, body, and fundus of the stomach. At the level of the antrum, the patient had a small 2 to 3 mm polyp that was sessile. This was resected and sent to Pathology labeled as gastric polyp. The scope was brought into the distal esophagus and a photograph was taken of the Z-line which grossly appeared normal. Narrow band imaging was used and a photograph of this was taken. Esophageal biopsies were taken 1 cm above the Z-line and sent to Pathology for histologic review. The remainder of the esophagus was normal. The scope was removed and this portion of procedure terminated. A digital rectal exam was performed. This exam was within normal limits. A well-lubricated colonoscope was inserted into the rectum and advanced under direct visualization to the level of the cecum. I had some difficulty getting the scope through the sigmoid colon. The sigmoid colon was spasmodic and in certain areas was not redundant. Great care was taken to avoid any undue pressure as I slowly and carefully advanced my scope. The cecum was identified by both visual and anatomic landmarks. A photograph was taken of the cecal cap as well as with the scope retroflexed within the cecum. The scope was then fully withdrawn while examining the color, texture, anatomy, and integrity mucosa from the cecum to the anal canal. Biopsies were taken of the cecum, ascending colon, transverse colon, descending colon, sigmoid colon x3, and rectum. The sigmoid colon did have some mucus throughout it, but I noticed no evidence of inflammation throughout the colon. There were no polyps noted. The scope was retroflexed within the rectum to allow visualization of the anal canal opening. This appeared normal and a photograph was taken. The scope was then straightened out and fully withdrawn. The cecum to anus time was 9 minutes. The patient tolerated the procedure well and was transferred to the PACU in stable condition. ENDOSCOPIC DIAGNOSES: 1. Gastritis. 2. Gastric polyp. RECOMMENDATIONS: I will start the patient on b.i.d. PPIs and visit with her regarding her biopsy results in clinic in two weeks. SHILOH JACKSON /[id number]
== END 2021-02-06 11:45 | disposition home or self-care (01) ==
LOC: MW.SDS 08:17
PROVIDERS: ATTEND Surgery
DX: K52.9 Noninfective gastroenteritis and colitis, unspecified (principal); K31.7 Polyp of stomach and duodenum; K21.00 Gastro-esophageal reflux disease with esophagitis, without bleeding; K29.50 Unspecified chronic gastritis without bleeding; K31.A0 Gastric intestinal metaplasia, unspecified; E78.5 Hyperlipidemia, unspecified; I10 Essential (primary) hypertension; E03.9 Hypothyroidism, unspecified; G47.00 Insomnia, unspecified; G43.909 Migraine, unspecified, not intractable, without status migrainosus; Z88.8 Allergy status to other drugs, medicaments and biological substances; Z88.5 Allergy status to narcotic agent; Z79.899 Other long term (current) drug therapy; Z79.890 Hormone replacement therapy; Z98.890 Other specified postprocedural states; Z87.891 Personal history of nicotine dependence
CPT/HCPCS: 43239; 45380; 88305; 88342; J2704; J3010; J7120; 00813

== ENCOUNTER 2022-12-28 12:24 | Emergency (ER) | payer BC ==
[2022-12-28] MEDS ORDERED: Sodium Chloride 0.9% 2.5 ML Syringe FLUSH PRN (12:26)
[2022-12-28] MEDS ORDERED: Lactated Ringers 1,000 ML IV ONE ×3 (12:26→13:44)
[2022-12-28] MEDS ORDERED: Sodium Chloride 0.9% 10 ML Syringe FLUSH PRN (12:26)
[2022-12-28] MEDS ORDERED: Cefepime 2 GM Vial IVPUSH ONE (12:38)
[2022-12-28] MEDS ORDERED: Cefepime 2 GM in Sodium Chloride 0.9% 50 ML IV ONE (12:45)
[2022-12-28 13:04] LABS: BASOPHILS PERCENT AUTO 0.1 % (0.0-1.5); HEMATOCRIT 39.4 % (36.0-46.0); HEMOGLOBIN 12.7 g/dL (12.0-16.0); LYMPHOCYTES ABSOLUTE AUTO 1.1 K/uL (0.6-2.4); LYMPHOCYTES PERCENT AUTO 6.8 % (16.0-40.0); MEAN CORPUSCULAR HEMOGLOBIN 32.2 pg (27.0-32.0); MEAN CORPUSCULAR HGB CONC 32.2 g/dL (31.0-37.0); MONOCYTES ABSOLUTE AUTO 1.1 K/uL (0.0-0.8); MONOCYTES PERCENT AUTO 7.2 % (0.0-15.0); NEUTROPHILS ABSOLUTE AUTO 13.5 K/uL (1.4-5.7); NEUTROPHILS PERCENT AUTO 85.9 % (48.0-80.0); PLATELET COUNT,PLT 323 K/uL (150-400); RED BLOOD CELL COUNT 3.94 M/uL (4.30-5.90); WHITE BLOOD CELL COUNT,WBC 15.67 K/uL (4.0-11.0)
[2022-12-28 13:05] LABS: BASE EXCESS VENOUS -18.8 (-2.0-3.0); PH,VENOUS 7.16 (7.31-7.41)
[2022-12-28] MEDS ORDERED: LORazepam 2 MG/ML SDV IVPUSH ONE ×4 (13:23→18:17)
[2022-12-28] MEDS ORDERED: LORazepam 2 MG/ML SDV ONE (13:24)
[2022-12-28 13:31] LABS: APPEARANCE,URINE CLEAR; BILIRUBIN,URINE NEGATIVE (NEGATIVE); COLOR,URINE YELLOW; GLUCOSE,URINE >=1000 mg/dL (NEGATIVE); KETONES,URINE >=80 mg/dL (NEGATIVE); LEUKOCYTE ESTERASE,URINE NEGATIVE (NEGATIVE); NITRITE,URINE NEGATIVE (NEGATIVE); OCCULT BLOOD,URINE SMALL (NEGATIVE); PH,URINE 5.5 (5.0-8.0); PROTEIN,URINE NEGATIVE (NEGATIVE); UROBILINOGEN,URINE 0.2 EU/dL (<2.0)
[2022-12-28 13:37] LABS: INR 0.96 (0.86-1.11); PTT,PARTIAL THROMBOPLSTIN TIME 26.3 SEC (23.9-30.7)
[2022-12-28 13:38] LABS: LACTIC ACID 4.9 mmol/L (0.4-2.0)
[2022-12-28] MEDS ORDERED: Acetaminophen 650 MG Supp RECTAL ONE (13:38)
[2022-12-28 13:39] LABS: AMPHETAMINES SCREEN, URINE NEGATIVE (CUTOFF=500); BARBITURATE SCREEN,URINE NEGATIVE (CUTOFF=200); BENZODIAZEPINES SCREEN,URINE NEGATIVE (CUTOFF=150); BUPRENORPHINE SCREEN,URINE NEGATIVE (CUTOFF=10); METHADONE SCREEN, URINE NEGATIVE (CUTOFF=200); METHAMPHETAMINES SCREEN, URINE NEGATIVE (CUTOFF=500); OXYCODONE SCREEN,URINE NEGATIVE (CUT0FF=100); PCP SCREEN,URINE NEGATIVE (CUTOFF=25); PROPOXYPHENE SCREEN,URINE NEGATIVE (CUTOFF=300); THC SCREEN,URINE 20 NG/ML NEGATIVE (CUTOFF=50)
[2022-12-28 13:41] LABS: BACTERIA,URINE FEW (NEGATIVE); EPITHELIAL CELLS,URINE FEW (NONE-FEW); RBC,URINE 0-2 (0-2/HPF); WBC,URINE 0-1 (0-5/HPF)
[2022-12-28 13:43] LABS: A/G RATIO 0.9 (0.9-1.6); ACETAMINOPHEN <2.0 ug/mL; ALANINE AMINOTRANSFERASE,ALT 34 IU/L (14-63); ALBUMIN 3.4 g/dL (3.4-5.0); ALKALINE PHOSPHATASE 109 U/L (46-116); ASPARTATE AMNIOTRANSFERASE,AST 154 IU/L (15-37); BILIRUBIN TOTAL 0.6 mg/dL (0.2-1.0); BLOOD UREA NITROGEN,BUN 56 mg/dL (7.0-18.0); CALCIUM 8.6 mg/dL (8.5-10.1); CARBON DIOXIDE,CO2 8.8 mmol/L (21.0-32.0); CHLORIDE,CL 100 mmol/L (98-107); CREATININE 5.9 mg/dL (0.6-1.0); LIPASE 14 U/L (16-77); PHOSPHORUS 2.5 mg/dL (2.6-4.7); POTASSIUM,K 4.3 mmol/L (3.5-5.1); SALICYLATE 12.4 mg/dL (0.0-20.0); SODIUM,NA 142 mmol/L (136-145); TSH ULTRASENSITIVE 0.25 uIU/mL (0.36-3.74)
[2022-12-28] MEDS ORDERED: VANCOmycin 1.5 GM/300 ML 1.5 GM in Premix Bag 1 BAG IV ONE (13:45)
[2022-12-28 13:46] LABS: ESTIMATED GFR 8 mL/min (>60); ETHANOL BLOOD MEDICAL < 3.0 mg/dL; GLUCOSE RANDOM 637 mg/dL (74-106)
[2022-12-28] MEDS ORDERED: Lactated Ringers 1,000 ML IV SCH (14:00)
[2022-12-28] MEDS ORDERED: Insulin Regular in 0.9 % NACL 100 ML IV SCH (14:00)
[2022-12-28 14:08] LABS: T4 FREE 0.95 ng/dL (0.76-1.46)
[2022-12-28] MEDS ORDERED: Dextrose 5%-Lactated Ringers 1,000 ML IV SCH (14:15)
[2022-12-28 16:09] LABS: BLOOD UREA NITROGEN,BUN 59 mg/dL (7.0-18.0); CALCIUM 9.2 mg/dL (8.5-10.1); CARBON DIOXIDE,CO2 15.8 mmol/L (21.0-32.0); CHLORIDE,CL 107 mmol/L (98-107); CREATININE 4.9 mg/dL (0.6-1.0); GLUCOSE RANDOM 277 mg/dL (74-106); SODIUM,NA 146 mmol/L (136-145)
[2022-12-28 16:10] LABS: ESTIMATED GFR 10 mL/min (>60)
[2022-12-28] MEDS ORDERED: Sodium Chloride 0.9% 1,000 ML IV SCH (16:30)
[2022-12-28] MEDS ORDERED: Dextrose 5%-0.9% NaCl 1,000 ML IV SCH (16:30)
[2022-12-28 18:26] VITALS: BP 97/57; PULSE 124
== END 2022-12-28 18:51 ==
LOC: MW.ED 12:24
DX: A41.9 Sepsis, unspecified organism (principal); E10.10 Type 1 diabetes mellitus with ketoacidosis without coma; G93.40 Encephalopathy, unspecified; I10 Essential (primary) hypertension; K21.9 Gastro-esophageal reflux disease without esophagitis; E03.9 Hypothyroidism, unspecified; Z88.5 Allergy status to narcotic agent; Z88.8 Allergy status to other drugs, medicaments and biological substances; Z79.4 Long term (current) use of insulin; Z79.899 Other long term (current) drug therapy; Z20.822 Contact with and (suspected) exposure to COVID-19
CPT/HCPCS: 36415; 70450; 71045; 71250; 74176; 80048; 80053; 80143; 80179; 80305; 80307; 81001; 82009; 82140; 82550; 82803; 82947; 83605; 83690; 83735; 84100; 84439; 84443; 84484; 85025; 85610; 85730; 87040; 87635; 93005; 96361; 96365; 96368; 96375; 96376; 99291; A9270; J0692; J1815; J2060; J3370; J3490; J7030; J7042; J7120; 93010; U0002

== ENCOUNTER 2023-04-17 07:18 | Day surgery (SDC) | payer BC ==
[~2023-04-17 07:18] MED LIST changes: -Sodium Chloride 0.9% 10 ML SDV IV PRN; +Sodium Chloride 0.9% 20 ML SDV IV PRN
[2023-04-17] MEDS ORDERED: propofoL 50 ML ONE (07:40)
[2023-04-17] MEDS ORDERED: fentaNYL 100 MCG/2 ML SDV ONE ×2 (08:57→10:40)
[2023-04-17] MEDS ORDERED: ceFAZolin 1 GM Vial ONE (09:14)
[2023-04-17 10:47] VITALS: BP 140/96; PULSE 76
[2023-04-17] MEDS ORDERED: ePHEDrine 50 MG/ML SDV ONE (11:08)
== END 2023-04-17 10:15 | disposition home or self-care (01) ==
LOC: MW.SDS 07:18
PROVIDERS: ATTEND Surgery
DX: K59.00 Constipation, unspecified (principal); K31.7 Polyp of stomach and duodenum; K62.1 Rectal polyp; K29.40 Chronic atrophic gastritis without bleeding; K29.50 Unspecified chronic gastritis without bleeding; F41.1 Generalized anxiety disorder; F32.A Depression, unspecified; E11.10 Type 2 diabetes mellitus with ketoacidosis without coma; G47.00 Insomnia, unspecified; Z88.5 Allergy status to narcotic agent; Z79.899 Other long term (current) drug therapy
CPT/HCPCS: 43239; 45380; J0690; J2704; J3010; J7120; 00813; J3490

== ENCOUNTER 2024-04-10 18:19 | Emergency (ER) | payer BC ==
[2024-04-10 19:34] LABS: BASOPHILS ABSOLUTE AUTO 0.03 K/uL (0.00-0.20); BASOPHILS PERCENT AUTO 0.2 % (0.0-1.0); EOSINOPHILS ABSOLUTE AUTO 0.01 K/uL (0.00-0.45); EOSINOPHILS PERCENT AUTO 0.1 % (0.0-6.0); HEMATOCRIT 37.5 % (37.0-47.0); HEMOGLOBIN 12.8 g/dL (12.0-16.0); IMMATURE GRAN ABSOLUTE AUTO 0.38 K/uL (0.00-0.05); IMMATURE GRAN PERCENT AUTO 2.9 % (0.0-0.4); LYMPHOCYTES ABSOLUTE AUTO 0.86 K/uL (1.00-4.80); LYMPHOCYTES PERCENT AUTO 6.6 % (24.0-44.0); MEAN CORPUSCULAR HEMOGLOBIN 32.2 pg (28.0-32.0); MEAN CORPUSCULAR HGB CONC 34.1 g/dL (32.0-36.0); MEAN CORPUSCULAR VOLUME 94.2 fL (83.0-99.0); MEAN PLATELET VOLUME 10.6 fL (9.4-12.3); MONOCYTES ABSOLUTE AUTO 0.55 K/uL (0.00-0.80); MONOCYTES PERCENT AUTO 4.2 % (0.0-8.0); NEUTROPHILS ABSOLUTE AUTO 11.19 K/uL (1.80-7.70); PLATELET COUNT,PLT 239 K/uL (150-400); RED BLOOD CELL COUNT 3.98 M/uL (4.10-5.30); WHITE BLOOD CELL COUNT,WBC 13.02 K/uL (3.9-11.3)
[2024-04-10 19:56] LABS: A/G RATIO 0.7 (0.9-1.6); ALANINE AMINOTRANSFERASE,ALT 32 IU/L (14-63); ALBUMIN 2.6 g/dL (3.4-5.0); ALKALINE PHOSPHATASE 496 U/L (46-116); ASPARTATE AMNIOTRANSFERASE,AST 39 IU/L (15-37); BILIRUBIN TOTAL 0.3 mg/dL (0.2-1.0); BLOOD UREA NITROGEN,BUN 84 mg/dL (7.0-18.0); CARBON DIOXIDE,CO2 22.5 mmol/L (21.0-32.0); CHLORIDE,CL 96 mmol/L (98-107); CREATININE 4.7 mg/dL (0.6-1.0); EST CRCL DRUG DOSING (CG) 12.64 mL/min; GLUCOSE RANDOM 164 mg/dL (74-106); LIPASE 9 U/L (16-77); MAGNESIUM 3.3 mg/dL (1.8-2.4); POTASSIUM,K 5.2 mmol/L (3.5-5.1); PROTEIN TOTAL,TP 6.2 g/dL (6.4-8.2); SODIUM,NA 132 mmol/L (136-145)
[2024-04-10 19:57] LABS: ESTIMATED GFR 11 mL/min (>60); ETHANOL BLOOD MEDICAL < 3.0 mg/dL
[2024-04-10] MEDS: Iopamidol 755 MG/ML 500 ML Multipack Bottle IVPUSH ONE (19:57)
[2024-04-10] MEDS: Sodium Chloride 0.9% 1,000 ML IV ONE ×3 (20:15→22:50)
[2024-04-10 20:51] LABS: APPEARANCE,URINE CLOUDY; BILIRUBIN,URINE NEGATIVE (NEGATIVE); COLOR,URINE YELLOW; GLUCOSE,URINE NEGATIVE (NEGATIVE); KETONES,URINE TRACE mg/dL (NEGATIVE); LEUKOCYTE ESTERASE,URINE NEGATIVE (NEGATIVE); NITRITE,URINE NEGATIVE (NEGATIVE); OCCULT BLOOD,URINE TRACE-INTACT (NEGATIVE); PH,URINE 5.5 (5.0-8.0); PROTEIN,URINE 30 mg/dL (NEGATIVE); UROBILINOGEN,URINE 0.2 EU/dL (<2.0)
[2024-04-10 21:06] LABS: BACTERIA,URINE RARE (NEGATIVE); EPITHELIAL CELLS,URINE FEW (NONE-FEW); RBC,URINE 0-2 (0-2/HPF); WBC,URINE 20-30 (0-5/HPF)
[2024-04-10 21:07] LABS: BASE EXCESS VENOUS -7.6 (-2.0-3.0); BICARBONATE,VENOUS 19 mEQ/mL (22-28); PCO2 VENOUS 40 mmHG (41-51); PH,VENOUS 7.28 (7.31-7.41); PO2 VENOUS < 30 mmHG (35-45)
[2024-04-10 21:29] LABS: AMPHETAMINES SCREEN, URINE NEGATIVE (CUTOFF=500); BARBITURATE SCREEN,URINE NEGATIVE (CUTOFF=200); BENZODIAZEPINES SCREEN,URINE NEGATIVE (CUTOFF=150); BUPRENORPHINE SCREEN,URINE NEGATIVE (CUTOFF=10); METHADONE SCREEN, URINE NEGATIVE (CUTOFF=200); METHAMPHETAMINES SCREEN, URINE NEGATIVE (CUTOFF=500); OXYCODONE SCREEN,URINE NEGATIVE (CUT0FF=100); PCP SCREEN,URINE NEGATIVE (CUTOFF=25); THC SCREEN,URINE 20 NG/ML PRESUMPTIVE POSITIVE (CUTOFF=50)
[2024-04-10] MEDS: Morphine 4 MG/ML Syringe IVPUSH ONE (22:50)
[2024-04-10] MEDS: Diazepam 5 MG Tab PO STA (23:53)
[2024-04-11 01:51] VITALS: BP 107/67; PULSE 90
== END 2024-04-11 01:45 ==
LOC: MW.ED 18:19
DX: K80.40 Calculus of bile duct with cholecystitis, unspecified, without obstruction (principal); N17.9 Acute kidney failure, unspecified; I10 Essential (primary) hypertension; E03.9 Hypothyroidism, unspecified; E10.9 Type 1 diabetes mellitus without complications; F17.210 Nicotine dependence, cigarettes, uncomplicated; Z90.710 Acquired absence of both cervix and uterus; Z88.8 Allergy status to other drugs, medicaments and biological substances; Z91.048 Other nonmedicinal substance allergy status; Z79.4 Long term (current) use of insulin; Z79.890 Hormone replacement therapy; Z79.899 Other long term (current) drug therapy; Z75.8 Other problems related to medical facilities and other health care
CPT/HCPCS: 36415; 70450; 74177; 80053; 80305; 80307; 81001; 82550; 82803; 83690; 83735; 85025; 96361; 96374; 99285; A9270; J2270; J7030; Q9967